=== PATIENT | male | born 1975 | race Caucasian/White ===

== ENCOUNTER → 2018-12-21 09:06 | Outpatient (CLI) | payer OTHER, SELFPAY ==
--- NOTE | 2018-12-21 09:12 | XR_ITS ---
PROCEDURE: XR FOOT WT BEARING LT 3V CLINICAL INDICATION: bilateral foot pain Left foot pain COMPARISON: No exams were available for comparison FINDINGS: No fracture or dislocation. No lytic or blastic change. There is normal mineralization. There are mild osteoarthritic changes at the 1st MTP joint and at the talonavicular joint. Minimal calcification noted at the plantar fascia posteriorly. Coarse calcifications also present at the Achilles tendon region. Other findings:None. IMPRESSION: Degenerative changes. Possible chronic plantar fasciitis. Dictated by: Salbador Spivey MD 12/21/2018 10:06 Signed by: <Electronically signed by Salbador Spivey MD in [place]> 12/21/2018 10:06
--- NOTE | 2018-12-21 09:12 | XR_ITS ---
PROCEDURE: XR ANKLE WT BEARING LT MIN 3V CLINICAL INDICATION: bilateral foot pain Ankle pain COMPARISON: No exams were available for comparison FINDINGS: No fracture, dislocation, lytic change, or blastic change evident. Mild degenerative change. Coarse calcifications are present in the Achilles tendon region IMPRESSION: Mild degenerative changes, no acute finding Dictated by: Salbador Spivey MD 12/21/2018 10:04 Signed by: <Electronically signed by Salbador Spivey MD in [place]> 12/21/2018 10:04
--- NOTE | 2018-12-21 09:12 | XR_ITS ---
PROCEDURE: XR ANKLE WT BEARING RT MIN 3V CLINICAL INDICATION: bilateral foot pain Ankle pain COMPARISON: No exams were available for comparison FINDINGS: No fracture or dislocation. No lytic or blastic change. There is a well-circumscribed calcific density at the tip of the medial malleolus consistent with an old avulsion fracture versus ununited ossification center. There is some minimal cortical regularity involving the medial aspect of the talus. Nonspecific calcifications are present in the Achilles tendon. IMPRESSION: Degenerative changes, no acute finding Dictated by: Salbador Spivey MD 12/21/2018 10:01 Signed by: <Electronically signed by Salbador Spivey MD in [place]> 12/21/2018 10:01
--- NOTE | 2018-12-21 09:12 | XR_ITS ---
PROCEDURE: XR FOOT WT BEARING RT 3V CLINICAL INDICATION: bilateral foot pain Foot pain COMPARISON: No exams were available for comparison FINDINGS: No fracture or dislocation. No lytic or blastic change. There is normal mineralization. Moderate osteoarthritic changes are present at the 1st metatarsophalangeal joint with bony hypertrophic change. Mild degenerative change talonavicular joint. Other findings:There is some minor calcification of the plantar fascia and the distal aspect of the Achilles tendon. IMPRESSION: Osteoarthritic change. Mild calcification of the plantar fascia which could represent sequela from chronic plantar fasciitis. Nonspecific Achilles tendon calcification. Dictated by: Salbador Spivey MD 12/21/2018 09:52 Signed by: <Electronically signed by Salbador Spivey MD in [place]> 12/21/2018 09:52
== END ==
PROVIDERS: PCP Emergency Medicine; Visit Provider Podiatrist
DX: M79.672 Pain in left foot (principal); M79.671 Pain in right foot
CPT/HCPCS: 73610; 73630

== ENCOUNTER → 2019-01-27 16:28 | Outpatient (CLI) | payer OTHER, SELFPAY ==
[2019-01-27 17:06] LABS: Basophils % 0.4 % (0.1-2.0); Eosinophils # 0.1 K/mm3 (0.0-0.4); Eosinophils % 1.5 % (0.1-12.0); Hemoglobin 15.2 g/dL (14.1-18.0); Lymphocytes # 2.2 K/mm3 (0.7-4.5); Lymphocytes % 23.9 % (10-50); Mean Corpuscular HGB Conc 31.7 g/dL (31.8-35.4); Mean Corpuscular Hemoglobin 29.5 pg (27.0-31.2); Mean Corpuscular Volume 93.1 fl (80-94); Mean Platelet Volume 7.5 fl (7.4-10.4); Monocytes # 0.6 K/mm3 (0.1-1.0); Monocytes % 6.7 % (1.7-9.3); Neutrophils # 6.3 K/mm3 (1.8-7.8); Neutrophils % 67.5 % (37.0-80.0); Platelet Count 279 K/mm3 (142-424); Red Blood Count 5.16 M/mm3 (4.60-6.20); White Blood Count 9.3 K/mm3 (4.8-10.8)
[2019-01-27 17:32] LABS: Erythrocyte Sedimentation Rate 6 mm/hr (0-15)
[2019-01-27 18:36] LABS: Alanine Aminotransferase 47 U/L (12-78); Albumin Level 4.4 gm/dL (3.4-5.0); Albumin/Globulin Ratio 1.6 (1.1-1.8); Alkaline Phosphatase 49 U/L (46-116); Anion Gap 11.1 mEq/L (5-15); Aspartate Amino Transferase 22 U/L (15-37); Bilirubin,Total 0.6 mg/dL (0.2-1.0); Blood Urea Nitrogen 20 mg/dL (7-18); Calcium 9.4 mg/dL (8.5-10.1); Carbon Dioxide 33 mmol/L (21.0-32.0); Chloride 99 mmol/L (98-107); Estimated Glomerular Filt Rate 73 ml/min (>60); GFR (African American) 88 ML/MIN (>60); Globulin 2.8 gm/dl (1.3-3.2); Glucose 103 mg/dL (74-106); Potassium 4.1 mmoL/L (3.5-5.1); Sodium 139 mmol/L (136-145); Total Protein,Serum 7.2 gm/dL (6.4-8.2); Uric Acid 7.1 mg/dL (2.6-7.2)
[2019-01-27 18:39] LABS: C-Reactive Protein < 0.2 mg/dL (0.0-0.9)
== END ==
PROVIDERS: Visit Provider Podiatrist
DX: M10.9 Gout, unspecified (principal)
CPT/HCPCS: 36415; 80053; 84550; 85025; 85651; 86140

== ENCOUNTER → 2019-03-16 08:39 | Outpatient (CLI) | payer OTHER, SELFPAY ==
--- NOTE | 2019-03-16 08:46 | MR_ITS ---
PROCEDURE: MR FOOT RT WO/W CON CLINICAL INDICATION: great toe pain Great toe pain and swelling with limited range of motion COMPARISON: XR FOOT WT BEARING RT 3V from 12/21/2018 TECHNIQUE: Routine multiplanar multi echo sequences are performed without and with gadolinium enhancement. FINDINGS: No obvious fracture or dislocation. No ligamentous or tendinous abnormalities identified. There are osteoarthritic changes at the 1st MTP joint with some subarticular cystic changes at the distal aspect of the 1st metatarsal in the proximal aspect of the proximal phalanx. No convincing evidence of osteomyelitis. There is some mild enhancement of the periarticular soft tissues at the 1st MTP joint and may be related overlying inflammation/pannus. There is some minimal enhancement of the proximal and dorsal aspect of the proximal phalanx of the great toe. This is well-circumscribed and may only represent some local inflammation. Cannot completely exclude the possibility of underlying infection. IMPRESSION: Osteoarthritic change of the 1st MTP joint with subchondral cystic changes with some mild enhancement of the surrounding soft tissues which could be related to inflammation from the osteoarthritic change. There is also some minimal enhancement of the proximal and dorsal aspect of the proximal phalanx of the great toe in an area of a subchondral cyst. These findings may only be related to inflammation from the osteoarthritis. Cannot completely exclude the possibility of underlying infection of the soft tissues or the bone at this region. Please correlate with clinical parameters. Three-phase bone scan may be of further value if clinical findings are indeterminate Dictated by: Salbador Spivey MD 03/16/2019 14:02 Electronically signed by Salbador Spivey MD in [place] 03/18/2019 07:44
== END ==
PROVIDERS: PCP Emergency Medicine; Visit Provider Podiatrist
DX: M10.9 Gout, unspecified (principal); M20.5X1 Other deformities of toe(s) (acquired), right foot; M79.671 Pain in right foot
CPT/HCPCS: 73720; A9576

== ENCOUNTER → 2019-03-31 13:24 | Outpatient (CLI) | payer OTHER, SELFPAY ==
--- NOTE | 2019-03-31 13:36 | XR_ITS ---
PROCEDURE: XR FOOT WT BEARING RT 3V CLINICAL INDICATION: FOOT PAIN, GREAT TOE Foot pain, great toe pain with redness and swelling COMPARISON: FTR3 FOOT-RT-3 VIEWS from 05/12/2012 XR FOOT WT BEARING LT 3V from 12/21/2018 XR FOOT WT BEARING RT 3V from 12/21/2018 FINDINGS: There osteoarthritic changes at the 1st MTP joint with bony hypertrophy. No fracture or dislocation. Mild osteoarthritic change talonavicular joint with small enthesophytes at the Achilles insertion and calcification along the distal aspect of the Achilles tendon and plantar fascia. Other findings:None. IMPRESSION: Mild osteoarthritic change 1st MTP joint and talonavicular joint. Calcification along the Achilles tendon and plantar fascia which may be related to or tendonitis, fasciitis Dictated by: Salbador Spivey MD 03/31/2019 15:50 Electronically signed by Salbador Spivey MD in [place] 03/31/2019 15:50
[2019-03-31 13:48] LABS: Basophils % 0.4 % (0.1-2.0); Eosinophils # 0.2 K/mm3 (0.0-0.4); Eosinophils % 2.2 % (0.1-12.0); Hematocrit 48.3 % (42.0-52.0); Hemoglobin 15.6 g/dL (14.1-18.0); Lymphocytes % 26.5 % (10-50); Mean Corpuscular HGB Conc 32.4 g/dL (31.8-35.4); Mean Corpuscular Hemoglobin 30.5 pg (27.0-31.2); Mean Corpuscular Volume 94.1 fl (80-94); Mean Platelet Volume 11.3 fl (7.4-10.4); Monocytes # 0.5 K/mm3 (0.1-1.0); Monocytes % 6.1 % (1.7-9.3); Neutrophils # 4.8 K/mm3 (1.8-7.8); Neutrophils % 64.8 % (37.0-80.0); Platelet Count 225 K/mm3 (142-424); Red Blood Count 5.13 M/mm3 (4.60-6.20); Red Cell Distribution Width 13.5 % (11.5-17.5); White Blood Count 7.4 K/mm3 (4.8-10.8)
[2019-03-31 17:09] LABS: Erythrocyte Sedimentation Rate 18 mm/hr (0-15)
[2019-03-31 17:17] LABS: Alanine Aminotransferase 54 U/L (12-78); Albumin Level 4.5 gm/dL (3.4-5.0); Albumin/Globulin Ratio 1.7 (1.1-1.8); Alkaline Phosphatase 48 U/L (46-116); Anion Gap 17.2 mEq/L (5-15); Aspartate Amino Transferase 21 U/L (15-37); Bilirubin,Total 0.9 mg/dL (0.2-1.0); Blood Urea Nitrogen 19 mg/dL (7-18); C-Reactive Protein 2.4 mg/dL (0.0-0.9); Calcium 8.7 mg/dL (8.5-10.1); Carbon Dioxide 26 mmol/L (21.0-32.0); Chloride 105 mmol/L (98-107); Creatinine,Serum 1.08 mg/dL (0.70-1.30); Estimated Glomerular Filt Rate 74 ml/min (>60); GFR (African American) 89 ML/MIN (>60); Globulin 2.6 gm/dl (1.3-3.2); Glucose 86 mg/dL (74-106); Potassium 4.2 mmoL/L (3.5-5.1); Sodium 144 mmol/L (136-145); Total Protein,Serum 7.1 gm/dL (6.4-8.2); Uric Acid 5.8 mg/dL (2.6-7.2)
[2019-04-02 10:18] LABS: RA Latex Turbid. <10.0 IU/mL (0.0-13.9)
[2019-04-05 16:44] LABS: Antinuclear Antibodies, IFA Positive (.)
== END ==
PROVIDERS: Visit Provider Podiatrist
DX: M79.671 Pain in right foot (principal)
CPT/HCPCS: 36415; 73630; 80053; 84550; 85025; 85651; 86038; 86140; 86431

== ENCOUNTER → 2019-04-07 08:52 | Outpatient (CLI) | payer OTHER, SELFPAY ==
--- NOTE | 2019-04-07 08:59 | NM_ITS ---
PROCEDURE: NM BONE 3 PHASE CLINICAL INDICATION: right great toe pain COMPARISON: MR FOOT RT WO/W CON from 03/16/2019 XR FOOT WT BEARING RT 3V from 03/31/2019 TECHNIQUE: Dose: 24.6 mCi technetium MDP FINDINGS: Blood flow images show increased blood flow to the right lower extremity and foot as well as focal increased activity involving the 1st metatarsophalangeal junction. Blood pool and delayed images also show focal intense increased activity at the 1st metatarsophalangeal junction on the right with some increased activity at the right interphalangeal joint. Delayed images show focal intense increased activity at the right 1st metatarsophalangeal junction as well as the 1st interphalangeal joint. There is some nonspecific increased activity in the midfoot on the left and at the area of the Achilles insertion on the left. IMPRESSION: Abnormal bone scan with focal intense increased activity at the right 1st metatarsophalangeal joint on all 3 phases. Differential diagnosis includes inflammatory arthritic changes or infection/septic joint. Increased activity at the interphalangeal joint on immediate and delayed images more suggestive of arthritic change. Dictated by: Salbador Spivey MD 04/10/2019 09:05 Electronically signed by Salbador Spivey MD in [place] 04/10/2019 09:05
--- NOTE | 2019-04-07 10:35 | HMH.ITSHM ---
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 []LISINOPRIL CLINDAMYCIN ALLOPURINOL IBUPROFEN ATORVASTATIN
== END ==
PROVIDERS: PCP Emergency Medicine; Visit Provider Podiatrist
DX: M10.9 Gout, unspecified (principal); M20.5X1 Other deformities of toe(s) (acquired), right foot; M79.671 Pain in right foot
CPT/HCPCS: 78315; A9503

== ENCOUNTER → 2019-04-18 15:32 | Outpatient (POV) | payer OTHER, SELFPAY | PROVIDERS: PCP Emergency Medicine; Visit Provider Nurse Practitioner Family | DX: Z00.00 Encounter for general adult medical examination without abnormal findings (principal) ==

== ENCOUNTER → 2019-08-26 11:32 | Outpatient (CLI) | payer OTHER, SELFPAY ==
--- NOTE | 2019-08-26 11:37 | XR_ITS ---
PROCEDURE: XR CERVICAL SPINE 3V CLINICAL INDICATION: neck pain COMPARISON: No exams were available for comparison FINDINGS: There is normal alignment. Degenerative disc disease is present at C4-C5 C5-C6 and C6-C7. There are some endplate spurring at these levels as well. There are mild facet arthritic changes at C4-C5 and C6. No fracture or dislocation. No lytic or blastic change. IMPRESSION: Cervical spondylosis as described above Dictated by: Salbador Spivey MD 08/26/2019 12:17 Electronically signed by Salbador Spivey MD in [place] 08/26/2019 12:17
== END ==
PROVIDERS: PCP Emergency Medicine; Visit Provider Orthopaedic Surgery
DX: M25.511 Pain in right shoulder (principal); M54.2 Cervicalgia
CPT/HCPCS: 72040

== ENCOUNTER → 2019-10-17 11:16 | Outpatient (POV) | payer OTHER, SELFPAY | PROVIDERS: Visit Provider Nurse Practitioner Family | DX: Z00.00 Encounter for general adult medical examination without abnormal findings (principal) ==

== ENCOUNTER → 2019-11-07 08:46 | Outpatient (CLI) | payer BC, SELFPAY ==
--- NOTE | 2019-11-07 08:47 | FL_ITS ---
PROCEDURE: FL BARIUM SWALLOW CLINICAL INDICATION: dysphag Dysphagia COMPARISON: US THYROID from 11/07/2019 TECHNIQUE: In the upright position the patient was observed to swallow barium in both the AP and lateral view. The cervical esophagus was examined under fluoroscopy with images obtained. The patient was then placed prone in the right anterior oblique position and was observed to swallow barium with Valsalva technique . FLUOROSCOPY TIME: 39 seconds FINDINGS: There was no evidence of aspiration. There was normal peristalsis. No filling defects or mucosal abnormalities. No masses or strictures. This optic is a slightly deviated toward the left at the level of the thoracic inlet. No annular constricting lesions. No mucosal abnormalities. No hernias. IMPRESSION: The upper thoracic esophagus is slightly deviated toward the left etiology indeterminate otherwise negative. Ultrasound of the same day did not reveal in the thyroid enlargement or masses on the right. CT with contrast of the lower neck/upper chest may provide further evaluation. Dictated by: Salbador Spivey MD 11/07/2019 10:08 Electronically signed by Salbador Spivey MD in [place] 11/07/2019 10:08
--- NOTE | 2019-11-07 08:47 | US_ITS ---
PROCEDURE: US THYROID CLINICAL INDICATION: enlarged right lobe Trouble swallowing, neck pressure COMPARISON: No exams were available for comparison FINDINGS: Right lobe: 3.8 x 1.4 x 1.7 cm. Homogeneous echogenicity. No mass Left lobe: 3.4 x 1.3 x 1.9 cm. Homogeneous echogenicity without evidence of mass Isthmus: Slightly prominent at 5 mm. No nodules Additional findings: IMPRESSION: Slightly prominent isthmus of the thyroid gland otherwise negative thyroid ultrasound. No mass/nodule apparent. Dictated by: Salbador Spivey MD 11/07/2019 10:11 Electronically signed by Salbador Spivey MD in [place] 11/07/2019 10:11
== END ==
PROVIDERS: PCP Emergency Medicine; Visit Provider Otolaryngology
DX: R13.10 Dysphagia, unspecified (principal); E01.0 Iodine-deficiency related diffuse (endemic) goiter
CPT/HCPCS: 74220; 76536

== ENCOUNTER → 2019-11-25 13:31 | Outpatient (CLI) | payer BC, SELFPAY ==
--- NOTE | 2019-11-25 13:31 | CT_ITS ---
PROCEDURE: CT SOFT TISSUE NECK WO/W CON CLINICAL HISTORY: DEVIATED ESOPHAGUS Feels like something is stuck in throat with coughing and gagging COMPARISON: DX,RF FL BARIUM SWALLOW from 11/07/2019 TECHNIQUE: Oral Contrast: None IV Contrast: 75 mL Optiray 350 Axial images obtained with sagittal and coronal reformats. All CT scans at the facility use one or more dose reduction, viz: automated exposure control, ma/kV adjustment per patient size (including targeted exams where dose is matched to indication, i.e. head), or iterative reconstruction technique. FINDINGS: The exam is performed without and with contrast. The nasopharynx, oropharynx, and hypopharynx have an unremarkable appearance. Unremarkable appearing epiglottis. The thyroid gland has an unremarkable appearance. There is no paratracheal mass evident. No impingement upon the trachea. No para esophageal mass is apparent. No anatomic vascular variants. The upper mediastinum has an unremarkable appearance. There are mild degenerative changes in the cervical spine IMPRESSION: Essentially negative CT of the neck. No paraesophageal or paratracheal masses or vascular anatomic variant. The trachea and esophagus appear midline in the neck. The esophageal deviation on the barium swallow is not duplicated on this exam Dictated b Salbador Spivey MD 11/26/2019 10:43 Salbador Spivey MD in [place] 11/26/2019 10:43
== END ==
PROVIDERS: PCP Emergency Medicine; Visit Provider Otolaryngology
DX: Q39.8 Other congenital malformations of esophagus (principal); K13.79 Other lesions of oral mucosa
CPT/HCPCS: 70492; Q9967

== ENCOUNTER → 2020-04-27 14:08 | Outpatient (CLI) | payer BC, SELFPAY ==
--- NOTE | 2020-04-27 14:12 | XR_ITS ---
PROCEDURE: XR ELBOW LT MIN 3V CLINICAL INDICATION: Elbow pain COMPARISON: No exams were available for comparison FINDINGS: No fracture or dislocation. No lytic or blastic change. There is normal mineralization. The joint spaces are well preserved. There is a small spur measuring 2-3 mm along the medial aspect of the capitellum. No evidence of displaced pad. Other findings:None. IMPRESSION: Small spur along the medial aspect of the capitellum otherwise negative left elbow Dictated by: Salbador Spivey MD 04/27/2020 15:52 Salbador Spivey MD in [place] 04/27/2020 15:52
== END ==
PROVIDERS: PCP Emergency Medicine; Visit Provider Orthopaedic Surgery
DX: M25.522 Pain in left elbow (principal)
CPT/HCPCS: 73080

== ENCOUNTER 2020-06-10 14:59 | Emergency (ER) | payer BC, OTHER, SELFPAY ==
[2020-06-10 15:01] VITALS: BP 131/83; PULSE 82; RESP 19; TEMP 36.3; O2SAT 98; BMI 33.9
--- NOTE | 2020-06-10 15:10 | CT_ITS ---
PROCEDURE: CT HEAD/BRAIN WO CON CLINICAL INDICATION: dizziness/headache COMPARISON: No exams were available for comparison TECHNIQUE: Axial images obtained. All CT scans at the facility use one or more dose reduction, viz: automated exposure control, ma/kV adjustment per patient size (including targeted exams where dose is matched to indication, i.e. head), or iterative reconstruction technique. FINDINGS: No midline shift, mass effect, intracranial hemorrhage, hydrocephalus, or extra-axial fluid collection is evident. The basilar cisterns and ventricular system are normal. There is no significant cerebellar or cortical atrophy. There are mild periventricular hypodensities suggesting mild chronic ischemic white matter changes. The calvarium has an unremarkable appearance. The internal auditory canals appear normal bilaterally. No mastoid effusion. No sinus air-fluid level. IMPRESSION: No acute intracranial finding, mild chronic ischemic periventricular white matter changes noted Dictated by: Dr. Corky Dugan MD 06/10/2020 19:19 Dr. Corky Dugan MD in [place] 06/10/2020 19:19
[2020-06-10 15:29] LABS: Basophils # 0.1 K/mm3 (0-0.2); Basophils % 0.7 % (0.1-2.0); Eosinophils # 0.1 K/mm3 (0.0-0.4); Eosinophils % 1.6 % (0.1-12.0); Hematocrit 50.4 % (42.0-52.0); Hemoglobin 16.7 g/dL (14.1-18.0); Lymphocytes # 2.1 K/mm3 (0.7-4.5); Lymphocytes % 26.3 % (10-50); Mean Corpuscular HGB Conc 33.1 g/dL (31.8-35.4); Mean Corpuscular Hemoglobin 29.5 pg (27.0-31.2); Mean Platelet Volume 7.4 fl (7.4-10.4); Monocytes # 0.5 K/mm3 (0.1-1.0); Monocytes % 6.1 % (1.7-9.3); Neutrophils # 5.2 K/mm3 (1.8-7.8); Neutrophils % 65.3 % (37.0-80.0); Platelet Count 207 K/mm3 (142-424); Red Blood Count 5.66 M/mm3 (4.60-6.20); Red Cell Distribution Width 13.3 % (11.5-17.5); White Blood Count 7.9 K/mm3 (4.8-10.8)
[2020-06-10 15:31] VITALS: BP 137/81; PULSE 79; RESP 20; O2SAT 100
--- NOTE | 2020-06-10 15:31 | HMH.EDGENADL ---
ED Disposition Clinical Impression: Frontal headache Disposition: Home, Self-Care Condition on Discharge: Good Instructions: DI for Headache Additional Instructions: Additional instructions for HEADACHE: See your physician as soon as possible for further evaluation. Return immediately if worsening headache, vomiting, problems with vision or speech, fever, numbness or weakness of the extremities, neck pain or stiffness. Prescriptions: Butalb/Acetaminophen/Caffeine [Fioricet 50-300-40 mg Capsule] 1 each PO Q6HP PRN #10 cap PRN Reason: Headache Transmission Status: Received by [facility] Referrals: Navin Garcia MD [Primary Care Provider] - - Critical Care Critical Care Time: No Attestation: On 06/10/20, the high probability of a clinically significant, sudden or life threatening deterioration of the following system(s) required my full and direct attention, intervention and personal management. The time I documented below is in addition to time spent performing reported procedures but includes the following listed in this critical care notation. Medical Decision Making - Boaz Inquiry Pt receiving controlled substance: No Vital Signs: 06/10/20 15:01 06/10/20 15:31 06/10/20 16:01 Temperature 97.4 F L Temperature Source Oral Pulse Rate [Left Radial] 82 79 79 Respiratory Rate 19 20 18 Blood Pressure [Right Arm] 131/83 137/81 123/80 Blood Pressure Mean [Right Arm] 99 99 94 Blood Pressure Source [Right Arm] Automatic Cuff Manual Cuff/ Palpation Blood Pressure Position [Right Arm] Sitting Sitting 02 Sat by Pulse Oximetry 98 100 98 Oxygen Delivery Method Room Air Room Air Room Air 06/10/20 16:41 Temperature Temperature Source Pulse Rate [Left Radial] 68 Respiratory Rate Blood Pressure [Right Arm] 124/75 Blood Pressure Mean [Right Arm] 91 Blood Pressure Source [Right Arm] Automatic Cuff Blood Pressure Position [Right Arm] Sitting 02 Sat by Pulse Oximetry 97 Oxygen Delivery Method Room Air - Lab Data Lab Results 06/10/20 15:15: WBC 7.9, RBC 5.66, Hgb 16.7, Hct 50.4, MCV 89.0, MCH 29.5, MCHC 33.1, RDW 13.3, Plt Count 207, MPV 7.4, Neut % (Auto) 65.3, Lymph % (Auto) 26.3, [place] % (Auto) 6.1, Eos % (Auto) 1.6, Baso % (Auto) 0.7, Neut # (Auto) 5.2, Lymph # (Auto) 2.1, [place] # (Auto) 0.5, Eos # (Auto) 0.1, Baso # (Auto) 0.1 06/10/20 15:15: Sodium 138, Potassium 4.0, Chloride 101, Carbon Dioxide 32 H, Anion Gap 9.0, BUN 17, Creatinine 1.10, Estimated Creat Clear 135, Estimated GFR 72, Est GFR ( Amer) 87, Glucose 116 H, Calcium 9.9, Total Bilirubin 0.7, AST 37, ALT 52, Alkaline Phosphatase 52, Total Protein 7.7, Albumin 4.7, Globulin 3.0, Albumin/Globulin Ratio 1.6 06/10/20 15:15: ESR 3 06/10/20 15:15: C-Reactive Protein 1.2 Result diagrams: 06/10/20 15:15 06/10/20 15:15 Orders (Tests/Meds): ED MEDICATIONS Discontinued Medications Generic Name Dose Route Start Last Admin Trade Name Freq PRN Reason Stop Dose Admin Ketorolac Tromethamine 30 mg 06/10/20 15:55 06/10/20 15:59 Ketorolac 30mg/Ml Vial IV 06/10/20 15:56 30 mg ONCE ONE Administration ORDERS Category Date Time Status CT head/brain wo con Stat Cat Scan 06/10/20 15:10 Taken - CT Data CT Scan: Head Time Received: 16:10 ([facility] fax) ED CT Reviewed: Yes: I have viewed the radiologist's interpretation Findings Narrative: Mild to moderate low-attenuation changes periventricular white matter and centrum semiovale, possible early white matter ischemic disease, cannot rule out white matter disease otherwise (e.g. MS or vasculitis) consider short-term follow-up CT or MRI as clinically indicated for further evaluation Visualized paranasal sinuses clear. 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 Medical Decision Narrative: Discussed findings. Advised of questionable white matter f
[2020-06-10 15:32] LABS: Alanine Aminotransferase 52 U/L (12-78); Albumin Level 4.7 g/dl (3.5-5.0); Albumin/Globulin Ratio 1.6 (1.1-1.8); Alkaline Phosphatase 52 U/L (38-126); Aspartate Amino Transferase 37 U/L (17-59); Bilirubin,Total 0.7 mg/dl (0.2-1.3); Blood Urea Nitrogen 17 mg/dl (9-20); Calcium 9.9 mg/dl (8.4-10.2); Carbon Dioxide 32 mmol/L (22.0-30.0); Chloride 101 mmol/L (98-107); Creatinine Clearance Estimated 135 mL/min (50-200); Estimated Glomerular Filt Rate 72 ml/min (>60); GFR (African American) 87 ML/MIN (>60); Glucose 116 mg/dl (74-100); Sodium 138 mmol/L (136-145); Total Protein,Serum 7.7 g/dl (6.3-8.2)
[2020-06-10 16:01] VITALS: BP 123/80; PULSE 79; RESP 18; O2SAT 98
[2020-06-10 16:29] LABS: C-Reactive Protein 1.2 mg/L (0-4)
[2020-06-10 16:37] LABS: Erythrocyte Sedimentation Rate 3 mm/hr (0-15)
--- NOTE | 2020-06-10 16:37 | PC.NURSE ---
MD at bedside discussing results and plan of care.
[2020-06-10 16:41] VITALS: BP 124/75; PULSE 68; O2SAT 97
[2020-06-10 16:44] VITALS: BP 127/76; PULSE 76; RESP 18; TEMP 36.8; O2SAT 98
== END 2020-06-10 16:47 | disposition home or self-care (01) ==
PROVIDERS: Emergency Provider Emergency Medicine; PCP Emergency Medicine
DX: R51.9 Headache, unspecified (principal); E78.5 Hyperlipidemia, unspecified; I10 Essential (primary) hypertension; Z79.899 Other long term (current) drug therapy
CPT/HCPCS: 70450; 80053; 85025; 85651; 86140; 96374; 99283

== ENCOUNTER → 2020-06-21 07:34 | Outpatient (CLI) | payer BC, OTHER, SELFPAY ==
--- NOTE | 2020-06-21 07:35 | MR_ITS ---
PROCEDURE: MR HEAD/BRAIN WO CON CLINICAL INDICATION: unrelenting headache Frontal headaches x2.5wks. Headaches started x1wk after COVID vaccine. Prior CT 06-10-20 COMPARISON: No exams were available for comparison TECHNIQUE: Routine multiplanar multi echo sequences are performed without gadolinium enhancement. FINDINGS: No evidence of acute infarction. No midline shift or mass effect. The cerebellopontine angles, cerebellum, and brainstem have an unremarkable appearance. Periventricular and subcortical T2 white matter hyperintensities are present most prominent in the parietal occipital junction on both sides confluent in appearance. These areas do not demonstrate restricted diffusion. There are 2 small cystic areas in the left periventricular region along the anterior horn of the left lateral ventricle. These measure approximately 5 mm each. The corpus callosum, pituitary, and craniocervical junction have an unremarkable appearance. No mastoid effusion or sinus air-fluid level. IMPRESSION: 1. There are prominent periventricular and subcortical T2 white matter hyperintensities most prominent at the parieto-occipital junction posterior to the lateral ventricles. Differential diagnosis would include ischemic gliotic change from microvascular disease, multiple sclerosis, or migraine headache. Please correlate with clinical parameters. 2. Two small cystic regions in the periventricular region in the left frontal area nonspecific and could be due to in size cystic encephalomalacia change Dictated by: Salbador Spivey MD 06/22/2020 12:22 Salbador Spivey MD in [place] 06/22/2020 12:22
== END ==
PROVIDERS: PCP Physician Assistant; Visit Provider Physician Assistant
DX: R51.9 Headache, unspecified (principal)
CPT/HCPCS: 70551

== ENCOUNTER 2020-11-29 10:32 | Emergency (ER) | payer OTHER, SELFPAY ==
[2020-11-29 10:33] VITALS: BP 147/90; PULSE 71; RESP 19; TEMP 36.9; O2SAT 98; BMI 32.3
[2020-11-29 11:12] LABS: Adenovirus,PCR Not Detected (NotDetected); Bordetella Pertussis Not Detected (NotDetected); Chlamydophila Pneumoniae, PCR Not Detected (NotDetected); Coronavirus 19, PCR Not Detected (NotDetected); Coronavirus 229E Not Detected (NotDetected); Coronavirus NL63 Not Detected (NotDetected); Coronavirus OC43 Not Detected (NotDetected); Coronovirus HKU1,PCR Not Detected (NotDetected); Human Metapneumovirus Not Detected (NotDetected); Influenza A, PCR Not Detected (NotDetected); Influenza AH1, 2009 Not Detected (NotDetected); Influenza AH1, PCR Not Detected (NotDetected); Influenza AH3,PCR Not Detected (NotDetected); Influenza B, PCR Not Detected (NotDetected); Mycoplasma Pneumoniae, PCR Not Detected (NotDetected); Parainfluenza 1, PCR Not Detected (NotDetected); Parainfluenza 2, PCR Not Detected (NotDetected); Parainfluenza 4, PCR Not Detected (NotDetected); Respiratory Syncytial Virus Not Detected (NotDetected); Rhinovirus/Enterovirus Not Detected (NotDetected)
--- NOTE | 2020-11-29 11:21 | HMH.EDUTC ---
[facility] [place] Disposition Clinical Impression: Sinusitis Qualifiers: Sinusitis location: unspecified location Chronicity: unspecified Qualified Code(s): J32.9 - Chronic sinusitis, unspecified Disposition: Home, Self-Care Condition on Discharge: Good Instructions: Sinusitis, DI for Sinusitis, DI for COVID-19 (Suspected or Confirmed ), Preventing the Spread of Coronavirus Discharge Instructions Additional Instructions: *Monitor Temp, Over the counter Motrin or Tylenol as directed/as needed Tylenol every 4 hours and Motrin every 6 hours (as long as your family doctor has told you that you can take it) for fever or pain. and straight to ER if unable to lower temp less than 101.0 after medication given *Warm salt water gargles may help to soothe the throat *Throat Lozenges *Warm fluids like tea with honey may help to soothe the throat *Sleep elevated *Humidifier/Vaporizer Follow up IMMEDIATELY for new or worsening symptoms or no Noticeable improvement over the next 48-72 hours. 911 for difficulty breathing or swallowing You were tested for today for COVID19 your test result should be back in the next 24-48 hours, you may call to the [facility] to see if your test results are back in the next 48 hours [phone] [facility] hours are 9am-9pm You was given a handout with instructions for Self Quarantine and Self isolation for while you wait on test results and what to do if they are positive If you are positive the Health Dept will be contacting you also Prescriptions: guaiFENesin [Mucinex 600mg tablet] 1 - 2 tab PO Q12HP PRN #20 tab.er.[id number] PRN Reason: Congestion Transmission Status: Pending to [facility] methylPREDNISolone [Medrol 4mg tab] 4 mg PO DIRECTED #21 tab Transmission Status: Pending to [facility] Azithromycin [Z-Gianfranco 250mg Tab*] 250 mg PO UD DOSE PK #6 tab Transmission Status: Pending to [facility] Referrals: Navin Garcia MD [Primary Care Provider] - As needed Forms: Work/School Release Time of Disposition: 11:35 Medical Decision Making - Boaz Inquiry Pt receiving controlled substance: No Boaz was queried for this patient: No Vital Signs: 11/29/20 10:33 Temperature 98.5 F Temperature Source Oral Pulse Rate [Left Radial] 71 Respiratory Rate 19 Blood Pressure [Right Arm] 147/90 H Blood Pressure Mean [Right Arm] 109 Blood Pressure Source [Right Arm] Automatic Cuff Blood Pressure Position [Right Arm] Sitting 02 Sat by Pulse Oximetry 98 Oxygen Delivery Method Room Air Orders (Tests/Meds): ORDERS Category Date Time Status Full Resp Panel w/COVID ([facility]) Routine Lab 11/29/20 10:58 Received [facility] [place] HPI - General Stated complaint: sinuses, coughing, weakness Time Seen by Provider: 11/29/20 11:21 Mode of Arrival: Ambulatory Source of Information: Patient Limitations: No Limitations Description of Symptoms (Recalled from Triage Doc. by RN): c/o cough and stopped up for 2 days HEENT Symptoms (Recalled from RN notes): Yes Resp Symptoms (Recalled from RN notes): No Skin Symptoms (Recalled from RN notes): No MS Symptoms (Recalled from RN notes): No Functional Status (Recalled from RN notes): na - History of Present Illness Provider Complaint: Patient states that he has been having sinus congestion and pressure along with cough, body aches and chills States that symptoms started almost a week ago and had continued to get worse over the last couple of days State that today he was coughing and came in to get tested for COVID - Related Data Home Medications Medication Instructions Recorded Confirmed Omeprazole [Omeprazole 20mg Tab] 20 mg PO DAILY 06/24/19 07/19/20 Previous Rx's Medication Instructions Recorded losartan 25 mg tablet 25 mg PO DAILY #90 tab 06/22/20 methylprednisolone 4 mg tablets in See Rx Instructions PO PER PKG DIR 11/26/20 a dose pack #21 tab Azithromycin [Z-Gianfranco 250mg Tab*] 250 mg PO UD DOSE PK #6 tab 11/29/20 guaiFENesin [Mucinex 600mg tablet]
[2020-11-29 11:43] VITALS: BP 147/90; PULSE 71; RESP 19; TEMP 36.9; O2SAT 98
[2020-11-29 13:30] LABS: Parainfluenza 3, PCR Detected (NotDetected)
== END 2020-11-29 11:44 | disposition home or self-care (01) ==
PROVIDERS: Emergency Provider Nurse Practitioner; PCP Emergency Medicine
DX: J32.9 Chronic sinusitis, unspecified (principal); I10 Essential (primary) hypertension; K21.9 Gastro-esophageal reflux disease without esophagitis; E78.5 Hyperlipidemia, unspecified
CPT/HCPCS: 87581; 87633; 87798; 99202; G0463

== ENCOUNTER 2022-03-26 07:19 | Emergency (ER) | payer OTHER, SELFPAY ==
[2022-03-26 07:20] VITALS: BP 137/89; PULSE 80; RESP 18; TEMP 36.6; O2SAT 99; BMI 29.1
[2022-03-26 07:44] VITALS: BMI 29.1
[2022-03-26 07:49] LABS: Coronavirus 19, PCR Not Detected (NotDetected); Influenza A, PCR Not Detected (NotDetected); Influenza B, PCR Not Detected (NotDetected)
[2022-03-26 07:56] LABS: Basophils # 0.1 K/mm3 (0-0.2); Basophils % 1.2 % (0.1-2.0); Chloride 104 mmol/L (98-107); Eosinophils # 0.1 K/mm3 (0.0-0.4); Eosinophils % 2.2 % (0.1-12.0); Hematocrit 47.8 % (42.0-52.0); Hemoglobin 16.2 g/dL (14.1-18.0); Lymphocytes # 1.5 K/mm3 (0.7-4.5); Lymphocytes % 24.9 % (10-50); Mean Corpuscular HGB Conc 33.8 g/dL (31.8-35.4); Mean Corpuscular Hemoglobin 29.8 pg (27.0-31.2); Mean Corpuscular Volume 88.1 fl (80-94); Mean Platelet Volume 8.4 fl (7.4-10.4); Monocytes # 0.6 K/mm3 (0.1-1.0); Monocytes % 9.3 % (1.7-9.3); Neutrophils # 3.9 K/mm3 (1.8-7.8); Neutrophils % 62.5 % (37.0-80.0); Platelet Count 245 K/mm3 (142-424); Potassium 4.1 mmoL/L (3.5-5.1); Red Blood Count 5.42 M/mm3 (4.60-6.20); Red Cell Distribution Width 13.5 % (11.5-17.5); Sodium 139 mmol/L (136-145); White Blood Count 6.2 K/mm3 (4.8-10.8)
[2022-03-26 07:58] LABS: Lipase 215 U/L (23-300)
[2022-03-26 07:59] LABS: Alanine Aminotransferase 51 U/L (12-78); Albumin Level 4.2 g/dl (3.5-5.0); Albumin/Globulin Ratio 1.9 (1.1-1.8); Alkaline Phosphatase 46 U/L (38-126); Amylase 73 U/L (30-110); Anion Gap 11.1 mEq/L (5-15); Aspartate Amino Transferase 47 U/L (17-59); Bilirubin,Total 1.2 mg/dl (0.2-1.3); Blood Urea Nitrogen 16 mg/dl (9-20); Calcium 9.1 mg/dl (8.4-10.2); Carbon Dioxide 28 mmol/L (22.0-30.0); Creatinine Clearance Estimated 125 mL/min (50-200); Estimated Glomerular Filt Rate 80 ml/min (>60); GFR (African American) 97 ML/MIN (>60); Globulin 2.2 g/dL (1.3-3.2); Glucose 97 mg/dl (74-100); Total Protein,Serum 6.4 g/dl (6.3-8.2)
[2022-03-26 08:00] VITALS: BP 127/78; PULSE 62
--- NOTE | 2022-03-26 08:07 | PC.NURSE ---
pt up to the bathroom
[2022-03-26 08:23] LABS: Microscopic, Urine URINE MICROSCOPIC (MICROSCOPIC)
[2022-03-26 08:24] LABS: Appearance,Urine CLEAR (Clear); Bilirubin,Urine Negative (Negative); Blood, Urine Negative (Negative); Color,Urine YELLOW (Yellow); Glucose,Urine (UA) Negative (Negative); Ketones,Urine Negative (Negative); Leukocyte Esterase,Urine Negative (Negative); Nitrate,Urine Negative (Negative); Protein,Urine Negative (Negative)
--- NOTE | 2022-03-26 08:35 | HMH.EDNVD ---
Discharge Plan Disposition Patient Disposition: Home, Self-Care Condition: Good Prescriptions Prescriptions: No Action atorvastatin 10 mg tablet 10 mg PO DAILY ondansetron HCl 4 mg tablet 4 mg PO TID PRN (Reason: nausea and vomiting) Qty: 45 1RF losartan 25 mg tablet See Rx Instructions .ROUTE .COMPLEX Qty: 90 1RF Dose Instruction: TAKE ONE TABLET BY MOUTH EVERY DAY Rx Instructions: TAKE ONE TABLET BY MOUTH EVERY DAY omeprazole 40 mg capsule,delayed release(DR/EC) See Rx Instructions .ROUTE .COMPLEX Qty: 30 2RF Dose Instruction: TAKE ONE CAPSULE BY MOUTH EVERY DAY DIRECTED Rx Instructions: TAKE ONE CAPSULE BY MOUTH EVERY DAY DIRECTED allopurinol 100 mg tablet 100 mg PO DAILY 30 Days Qty: 90 3RF Referrals Follow up/Referrals: Navin Garcia MD [Primary Care Provider] - See instructions Activity Restrictions/Add. Instructions Additional Instructions/Restrictions: Please follow up with your primary care physician in 1-2 days for further management. You will need to obtain a stool study with your primary care team. Please return if you have any abdominal pain or worsening symptoms. Clinical Impressions Clinical Impression: Gastroenteritis Stand Alone Forms Stand Alone Forms: Work/School Release Instructions Patient Instructions: Viral Gastroenteritis, Gastroenteritis Diet, DI for Colitis Print Language Print Language: Turkmen Discharge ED Provider: Lizbeth Kay Nausea/Vomiting/Diarrhea HPI General Chief complaint: Nausea/Vomiting/Diarrhea Stated complaint: Nausea, vomitting, diarreah Time Seen by Provider: 03/26/22 08:00 Mode of Arrival: Ambulatory Source of Information: Patient Limitations: No Limitations Description of Symptoms (Recalled from ER Triage Doc. by RN): c/o n/v/d for 2 weeks, pt states that he stays nauseated all day, and he goes to the bathroom with diarrhea day and night. History of Present Illness HPI Narrative: Mr. Alfonso is a 47 yo male w/ no significant PMH presenting to the ED for N/V/D for 2 weeks. Patient denies any abdominal pain. No bloody stools. No weight loss. No chest pain, dyspnea or diaphoresis. No bloody emesis. No fevers, cough or other infectious symptoms. MD complaint: nausea, vomiting and diarrhea Onset (ago): week(s) Description of Vomiting: watery Description of Diarrhea: water Associated Abdominal Pain: No Relieving factors: none Exacerbating factors: none Associated symptoms: denies other symptoms Related Data Home Medications Medication Instructions Recorded Confirmed atorvastatin 10 mg tablet 10 mg PO DAILY 03/27/22 03/27/22 Previous Rx's Medication Instructions Recorded losartan 25 mg tablet See Rx Instructions .Route 01/08/22 .COMPLEX #90 tabs omeprazole 40 mg capsule,delayed See Rx Instructions .Route 02/10/22 release .COMPLEX #30 caps allopurinol 100 mg tablet 100 mg PO DAILY 30 days #90 tabs 03/21/22 ondansetron HCl 4 mg tablet 4 mg PO TID PRN nausea and 03/27/22 vomiting #45 tabs Allergies Allergy/AdvReac Type Severity Reaction Status Date / Time morphine [MORPHINE] Allergy Mild DIZZINESS Verified 03/27/22 14:04 AND VOMITING lisinopril AdvReac Mild cough Verified 03/27/22 14:04 meloxicam [From Mobic] AdvReac Dry Eye, Verified 03/27/22 14:04 Headaches, Blurred Vision PFSH PFS Disclaimer: The information contained in this section may have been updated after the patient was seen, as this information can be updated by other users. Social History Smoking Status: Never smoker second hand exposure: No alcohol intake: current substance use type: denies use current occupational status: employed Travel in the last 8 weeks: None household members: spouse housing: house current occupation: [employer] current occupational exposures/hazards: No caffeine: Yes ROS Obt
[2022-03-26 08:43] LABS: Bacteria,Urine Trace /lpf; Squamous Epithelial Cell,Urine Occasional #/hpf (0-5)
--- NOTE | 2022-03-26 09:10 | PC.NURSE ---
pt requesting CT, states she does not see an indication for one at this time. will go talk to the pt
[2022-03-26 09:16] VITALS: BP 127/78; PULSE 62; RESP 18; TEMP 36.6; O2SAT 98
== END 2022-03-26 09:17 | disposition home or self-care (01) ==
PROVIDERS: Emergency Provider Student in an Organized Health Care Education/Training Program; PCP Emergency Medicine
DX: K52.9 Noninfective gastroenteritis and colitis, unspecified (principal); Z88.5 Allergy status to narcotic agent; Z88.8 Allergy status to other drugs, medicaments and biological substances
CPT/HCPCS: 80053; 81001; 82150; 83690; 85025; 96365; 96375; 99284; C9803; J2405; U0003; U0005

== ENCOUNTER 2022-06-01 10:19 | Outpatient (CLI) | payer SELFPAY ==
[2022-06-01 19:49] VITALS: BMI 32.3
== END 2022-06-01 11:41 | disposition home or self-care (01) ==
LOC: UTC.OUT 10:27
PROVIDERS: PCP Emergency Medicine; Visit Provider Nurse Practitioner Family
DX: Z02.4 Encounter for examination for driving license (principal)

== ENCOUNTER → 2022-09-05 09:10 | Outpatient (CLI) | payer OTHER, SELFPAY | LOC: LAB.DROPOF 09-08 06:25 | PROVIDERS: PCP Nurse Practitioner Family; Visit Provider Nurse Practitioner Family | DX: J02.9 Acute pharyngitis, unspecified (principal) | CPT/HCPCS: 87070 ==

== ENCOUNTER 2023-11-17 18:55 | Emergency (ER) | payer OTHER, SELFPAY ==
[2023-11-17 19:20] VITALS: BP 142/97; PULSE 87; RESP 20; TEMP 37; O2SAT 100; BMI 32.2
--- NOTE | 2023-11-17 19:52 | ED_ITS ---
Discharge Plan Disposition Patient Disposition: Home, Self-Care Condition: Good Prescriptions Prescriptions: New azithromycin [Zithromax Z-Gianfranco] 250 mg tablet See Rx Instructions .ROUTE .COMPLEX 5 Days Qty: 6 0RF Rx Instructions: For 250 mg dose pack: take 500 mg today (day 1), then 250 mg for 4 days (days 2-5) benzonatate 100 mg capsule 100 mg PO TID PRN (Reason: cough) Qty: 30 0RF methylprednisolone [Medrol (Gianfranco)] 4 mg tablets,dose pack See Rx Instructions .Route .COMPLEX 6 Days Qty: 21 0RF Rx Instructions: taper pack; No Action atorvastatin 40 mg tablet 40 mg PO HS losartan-hydrochlorothiazide 50-12.5 mg tablet 1 tab PO QAM Qty: 90 3RF omeprazole 40 mg capsule,delayed release(DR/EC) 40 mg PO DAILY Rx Instructions: TAKE ONE CAPSULE BY MOUTH EVERY DAY DIRECTED Referrals Follow up/Referrals: Lucy Javed APRN [Primary Care Provider] - See instructions Activity Restrictions/Add. Instructions Additional Instructions/Restrictions: * Start antibiotic. Be sure to complete entire prescription even if feeling better * Monitor temp. Tylenol every 4 hours as needed and / or ibuprofen every 6 hours as needed ( As long as your primary care physician has told you that it ok to take both. For fever/aches/pains ER if no less than 101 despite Tylenol or Motrin * Humidifier/vaporizer or hot steamy shower * *Tessalon Perles will not cause drowsiness but use at bedtime to help stop cough so that you may get some rest. *Start steroid tomorrow. Helps with inflammation therefore, cough and wheezing. Follow directions on the package. Reviewed side effects. Patient reports taking them before. Follow up IMMEDIATELY for new or worsening of symptoms OR no noticeable improvement over the next 48-72 hours. 911 immediately for any life threatening symptoms such as chest pain or difficulty Clinical Impressions Clinical Impression: Sinusitis Qualifiers: Sinusitis location: unspecified location Chronicity: unspecified Qualified Code(s): J32.9 - Chronic sinusitis, unspecified Instructions Patient Instructions: Sinusitis, DI for Sinusitis Print Language Print Language: Bengali Discharge ED Provider: Rachel Benson [facility] [place] HPI General Stated complaint: Sore throat,cough,SOA,VAUGHN body aches Mode of Arrival: Ambulatory Source of Information: Patient Limitations: No Limitations Time Seen by Provider: 11/17/23 19:52 Description of Symptoms (Recalled from Triage Doc. by RN): PATIENT C/O COUGH, CONGESTION, BODY ACHES, SORE THROAT AND HEADACHE X 2 DAYS HEENT Symptoms (Recalled from RN notes): Yes Resp Symptoms (Recalled from RN notes): Yes Skin Symptoms (Recalled from RN notes): No MS Symptoms (Recalled from RN notes): No Functional Status (Recalled from RN notes): WNL History of Present Illness Provider Complaint: Patient states that he hasnt been feeling well for the last couple of days States that he has been having sore throat, sinus congestion and pressure, drainage in the back of his throat for the last couple of days and today he wasnt feeling any better so he came in to get checked Related Data Home Medications ?Medication ?Instructions ?Recorded ?Confirmed atorvastatin 40 mg tablet 40 mg PO HS 07/24/22 11/17/23 omeprazole 40 mg capsule,delayed 40 mg PO DAILY 11/17/23 11/17/23 release Previous Rx's ?Medication ?Instructions ?Recorded losartan 50 mg-hydrochlorothiazide 1 tab PO QAM #90 tabs 07/29/23 12.5 mg tablet azithromycin 250 mg tablet See Rx Instructions PO .COMPLEX 5 11/17/23 (Zithromax Z-Gianfranco) days #6 tabs benzonatate 100 mg capsule 100 mg PO TID PRN cough #30 caps 11/17/23 methylprednisolone 4 mg tablets in See Rx Instructions .Route 11/17/23 a dose pack (Medrol (Gianfranco)) .COMPLEX 6 days #21 tabs Allergies Allergy/AdvReac Type Severity Reaction Status Date / Time morphine [MORPHINE] Allergy Mild DIZZINESS Verified 07/29/23 10:31 AND VOMITING allopurinol Allergy Verified 11/17/23 19:27 lisinopril AdvReac Mild cough Verified 07/29/23 10:31 meloxicam [From Mobic] AdvReac Dry Eye, Verified 07/29/23 10:31 Headaches, Blurred Vision Worker's Comp Is this a Worker's Comp case?: No [facility] Disclaimer: The information contained in this section may have been updated after the patient was seen, as this information can be updated by other users. Medical History (Updated 11/17/23 @ 20:05 by Rachel Benson APRN) URI (upper respiratory infection) Acute middle ear effusion Excessive cerumen in both ear canals Gout Gastroenteritis Sinusitis Frontal headache Surgical History No significant past surgical history Family History Other No significant family history Social History Smoking Status: Never smoker second hand exposure: No alcohol intake: current alcohol intake frequency: holidays/special occasions only substance use type: denies use current occupational status: employed Travel in the last 8 weeks: None household members: spouse housing: house current occupation: [employer] current occupational exposures/hazards: No caffeine: Yes ROS Obtained: Yes All systems reviewed & no additional complaints except as documented and Yes Systems reviewed as appropriate & no additional complaints except as documented Constitutional Constitutional: Reports system reviewed and no additional complaints, except as documented, Reports as per HPI, Reports body ache and Reports headache(s) ENT Ears, Nose, Mouth, and Throat: Reports system reviewed and no additional complaints, except as documented, Reports as per HPI, Reports headache(s), Reports sinus pain, Reports sinus pressure and Reports sore throat Cardiovascular Cardiovascular: Reports system reviewed and no additional complaints, except as documented and Reports as per HPI Respiratory Respiratory: Reports system reviewed and no additional complaints, except as documented, Reports as per HPI and Reports cough Gastrointestinal Gastrointestingal: Reports system reviewed and no additional complaints, except as documented and as per HPI Neurologic Neurologic: Reports headache(s) Physical Exam General General appearance: alert and in no apparent distress ENT ENT exam: Present mucous membranes moist Expanded ENT Exam Nose exam: Present sinus tenderness Throat exam: Present other (Pharyngeal erythema noted with PND) Respiratory Respiratory exam: Present normal lung sounds bilaterally; Absent respiratory distress or wheezes Cardiovascular Cardiovascular exam: Present regular rate, normal rhythm and normal heart sounds Abdominal Exam Abdominal exam: Present soft and normal bowel sounds; Absent distention or tenderness Neurological Exam Neurological exam: Present alert, oriented X3 and normal gait Medical Decision Making Boaz Inquiry Pt receiving controlled substance: No Boaz was queried for this patient: No Vital Signs: 11/17/23 19:20 Temperature 98.6 F Temperature Source Oral Pulse Rate [Left Brachial] 87 Respiratory Rate 20 Blood Pressure [Left Arm] 142/97 H Blood Pressure Mean [Left Arm] 112 Blood Pressure Source [Left Arm] Automatic Cuff Blood Pressure Position [Left Arm] Sitting 02 Sat by Pulse Oximetry 100 Oxygen Delivery Method Room Air Lab Data Lab results reviewed: Yes I reviewed the patient's lab results.
[2023-11-17 19:53] LABS: UTC Strep Screen (Rapid) Negative (Negative)
[2023-11-17] MEDS: METHYLPREDNISOLONE SOD SUCC 125MG VIAL 125 MG IM (20:12)
[2023-11-17] MEDS: cefTRIAXone 1GM VIAL 1 GM IM (20:12)
[2023-11-17] MEDS: LIDOCAINE 1% 5ML PF VIAL IM (20:12)
[2023-11-17 20:25] VITALS: BP 142/97; PULSE 87; RESP 20; TEMP 37; O2SAT 100
== END 2023-11-17 20:35 | disposition home or self-care (01) ==
PROVIDERS: Emergency Provider Nurse Practitioner; PCP Nurse Practitioner Family
DX: J01.90 Acute sinusitis, unspecified (principal); R09.82 Postnasal drip; R07.0 Pain in throat
CPT/HCPCS: 87880; 96372; 99212; 99214; G0463; J0696; J2919

== ENCOUNTER 2023-12-13 17:26 | Emergency (ER) | payer OTHER, SELFPAY ==
[2023-12-13 17:27] VITALS: BP 115/77; PULSE 98; RESP 20; TEMP 36.6; O2SAT 99; BMI 31.7
--- NOTE | 2023-12-13 17:28 | HMH.EDGENADL ---
Discharge Plan Disposition Patient Disposition: Home, Self-Care Condition: Good Prescriptions Prescriptions: No Action irbesartan 75 mg tablet 75 mg PO DAILY Qty: 90 0RF diclofenac sodium 75 mg tablet,delayed release (DR/EC) 75 mg PO DAILY Patient Comments: TAKE ONE TABLET BY MOUTH TWICE DAILY atorvastatin 40 mg tablet 80 mg PO HS omeprazole 40 mg capsule,delayed release(DR/EC) 40 mg PO DAILY Rx Instructions: TAKE ONE CAPSULE BY MOUTH EVERY DAY DIRECTED Referrals Follow up/Referrals: Lucy Javed APRN [Primary Care Provider] - See instructions Activity Restrictions/Add. Instructions Additional Instructions/Restrictions: Please stop taking your blood pressure medicine with hydrochlorothiazide in it until you see your PCP. Follow-up with your PCP in 48 hours for recheck of your creatinine. I have referred you to cardiology for full cardiac evaluation. Return to ER for any worsening signs or symptoms as needed. Clinical Impressions Clinical Impression: Near syncope, Acute kidney injury (nontraumatic) Stand Alone Forms Stand Alone Forms: Work/School Release Instructions Patient Instructions: DI for Syncope in Adults (Fainting), DI for Syncope in Children (Fainting) Print Language Print Language: Kazakh Discharge ED Provider: Heber Gupta General Adult HPI <SHEREE Edwards - Last Filed: 12/13/23 22:31> General Chief complaint: Syncope Stated complaint: passing out, dizzy Time Seen by Provider: 12/13/23 17:28 History of Present Illness HPI narrative: Patient presents for evaluation of near syncope. Patient gives a history of having a recent upper respiratory tract infection and a visit to [facility] approximately 4 weeks ago at which she was given antibiotics and steroids however no definitive pneumonia or bacterial infection was identified nor was COVID or flu. Patient states that since then he has had 2 episodes of sudden weakness and dizziness and near syncope. 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 He was able to assist himself to the ground and did not pass out. Patient does have a history of osteoarthritis of bilateral knees and is on diclofenac as well as high blood pressure and he is on 1 antihypertensive combination with HCTZ. He denies chest pain fever chills hemoptysis hematochezia melena nausea vomiting diarrhea. Related Data Home Medications ?Medication ?Instructions ?Recorded ?Confirmed omeprazole 40 mg capsule,delayed 40 mg PO DAILY 11/17/23 12/14/23 release atorvastatin 40 mg tablet 80 mg PO HS 12/14/23 12/14/23 diclofenac sodium 75 mg 75 mg PO DAILY 12/14/23 12/14/23 tablet,delayed release Previous Rx's ?Medication ?Instructions ?Recorded irbesartan 75 mg tablet 75 mg PO DAILY #90 tabs 12/14/23 Allergies Allergy/AdvReac Type Severity Reaction Status Date / Time morphine [MORPHINE] Allergy Mild DIZZINESS Verified 12/14/23 13:06 AND VOMITING allopurinol Allergy Verified 12/14/23 13:06 lisinopril AdvReac Mild cough Verified 12/14/23 13:06 meloxicam [From Mobic] AdvReac Dry Eye, Verified 12/14/23 13:06 Headaches, Blurred Vision PFS <SHEREE Edwards - Last Filed: 12/13/23 22:31> COUNT INCLUDES THE [facility] Disclaimer: The information contained in this section may have been updated after the patient was seen, as this information can be updated by other users. Medical History (Updated 12/14/23 @ 13:35 by Lucy Javed APRN) Near syncope Sinusitis URI (upper respiratory infection) Acute middle ear effusion Excessive cerumen in both ear canals Gout Gastroenteritis Sinusitis Frontal headache Surgical History No significant past surgical history Family History Other No significant family history Social History (Reviewed
--- NOTE | 2023-12-13 17:35 | ECG_ITS ---
APPROVED REPORT Exam: Resting ECG HR:75 bpm ECG Measurements Heart Rate 75 AXES ID 158 P 56 QRSd 105 QRS -42 QT 360 T 5 QTc 388 Conclusion SINUS RHYTHM LEFT AXIS DEVIATION [QRS AXIS < -30] PATTERN CONSISTENT WITH PULMONARY DISEASE ABNORMAL ECG Electronically signed by : JUANIS MARCANO, 12/14/2023 15:10:23
[2023-12-13 17:40] VITALS: BP 109/80; PULSE 98; O2SAT 98
[2023-12-13 17:41] VITALS: BP 125/88; PULSE 70; O2SAT 99
[2023-12-13 18:00] VITALS: BP 110/74; PULSE 75; O2SAT 95
[2023-12-13 18:09] LABS: Albumin Level 4.5 g/dl (3.5-5.0); Chloride 102 mmol/L (98-107); Potassium 3.6 mmoL/L (3.5-5.1); Sodium 138 mmol/L (136-145)
[2023-12-13 18:11] LABS: Alanine Aminotransferase 75 U/L (12-78); Basophils # 0.1 K/mm3 (0-0.2); Blood Urea Nitrogen 28 mg/dl (9-20); Creatinine Clearance Estimated 71 mL/min (50-200); Eosinophils # 0.3 K/mm3 (0.0-0.4); Eosinophils % 2.7 % (0.1-12.0); Estimated Glomerular Filt Rate 38 ml/min (>60); GFR (African American) 46 ML/MIN (>60); Hematocrit 45.1 % (42.0-52.0); Hemoglobin 14.9 g/dL (14.1-18.0); Lymphocytes # 1.9 K/mm3 (0.7-4.5); Lymphocytes % 17.8 % (10-50); Mean Corpuscular Hemoglobin 30.1 pg (27.0-31.2); Mean Corpuscular Volume 91.2 fl (80-94); Monocytes # 0.6 K/mm3 (0.1-1.0); Monocytes % 5.5 % (1.7-9.3); Neutrophils # 7.6 K/mm3 (1.8-7.8); Platelet Count 257 K/mm3 (142-424); Red Blood Count 4.95 M/mm3 (4.60-6.20); Red Cell Distribution Width 14.2 % (11.5-17.5); White Blood Count 10.5 K/mm3 (4.8-10.8)
[2023-12-13 18:12] LABS: Albumin/Globulin Ratio 1.8 (1.1-1.8); Alkaline Phosphatase 41 U/L (38-126); Anion Gap 10.6 mEq/L (5-15); Aspartate Amino Transferase 45 U/L (17-59); Bilirubin,Total 1.6 mg/dl (0.2-1.3); Calcium 9.7 mg/dl (8.4-10.2); Carbon Dioxide 29 mmol/L (22.0-30.0); Globulin 2.5 g/dL (1.3-3.2); Glucose 142 mg/dl (74-100)
[2023-12-13 19:00] LABS: Microscopic, Urine URINE MICROSCOPIC (MICROSCOPIC)
[2023-12-13 19:01] LABS: Appearance,Urine CLEAR (Clear); Bilirubin,Urine Negative (Negative); Blood, Urine Negative (Negative); Color,Urine YELLOW (Yellow); Glucose,Urine (UA) Negative (Negative); Ketones,Urine Negative (Negative); Leukocyte Esterase,Urine Negative (Negative); Nitrate,Urine Negative (Negative); Protein,Urine Negative (Negative); Urobilinogen,Urine 0.2 EU/dl (0.2)
[2023-12-13 19:22] LABS: Bacteria,Urine Trace /lpf; Hyaline Casts,Urine Occasional #/lpf (0); WBC,Urine Occasional #/hpf (0-3)
[2023-12-13 19:44] VITALS: BP 119/75; PULSE 62; RESP 19; TEMP 36.6; O2SAT 100
== END 2023-12-13 19:45 | disposition home or self-care (01) ==
PROVIDERS: Physician Assistant; Emergency Provider Emergency Medicine; PCP Nurse Practitioner Family
DX: R55 Syncope and collapse (principal); N17.9 Acute kidney failure, unspecified; R42 Dizziness and giddiness
CPT/HCPCS: 80053; 81001; 85025; 93005; 96361; 96374; 96375; 99285; J0131; J2405; J7120

== ENCOUNTER 2023-12-14 13:50 | Outpatient (CLI) | payer OTHER, SELFPAY ==
[2023-12-14 16:29] LABS: Microscopic, Urine URINE MICROSCOPIC (MICROSCOPIC)
[2023-12-14 16:43] LABS: Basophils # 0.1 K/mm3 (0-0.2); Basophils % 0.8 % (0.1-2.0); Eosinophils # 0.3 K/mm3 (0.0-0.4); Eosinophils % 4.5 % (0.1-12.0); Hematocrit 42.1 % (42.0-52.0); Hemoglobin 14.1 g/dL (14.1-18.0); Lymphocytes # 1.8 K/mm3 (0.7-4.5); Lymphocytes % 27.4 % (10-50); Mean Corpuscular HGB Conc 33.6 g/dL (31.8-35.4); Mean Corpuscular Hemoglobin 31.4 pg (27.0-31.2); Mean Corpuscular Volume 93.5 fl (80-94); Mean Platelet Volume 9.6 fl (7.4-10.4); Monocytes # 0.5 K/mm3 (0.1-1.0); Monocytes % 7.6 % (1.7-9.3); Neutrophils % 59.7 % (37.0-80.0); Platelet Count 227 K/mm3 (142-424); Red Cell Distribution Width 14.2 % (11.5-17.5); White Blood Count 6.6 K/mm3 (4.8-10.8)
[2023-12-14 16:50] LABS: Appearance,Urine CLEAR (Clear); Bilirubin,Urine Negative (Negative); Blood, Urine Negative (Negative); Color,Urine YELLOW (Yellow); Glucose,Urine (UA) Negative (Negative); Ketones,Urine Negative (Negative); Leukocyte Esterase,Urine Negative (Negative); Nitrate,Urine Negative (Negative); Protein,Urine Negative (Negative); Specific Gravity, Urine 1.025 (1.005-1.030); Urobilinogen,Urine 0.2 EU/dl (0.2)
[2023-12-14 17:01] LABS: Total Protein,Urine Random < 5.0 mg/dL (0.0-12.0)
[2023-12-14 17:28] LABS: Alanine Aminotransferase 66 U/L (12-78); Albumin Level 4.2 g/dl (3.5-5.0); Albumin/Globulin Ratio 1.7 (1.1-1.8); Alkaline Phosphatase 40 U/L (38-126); Anion Gap 7.8 mEq/L (5-15); Aspartate Amino Transferase 39 U/L (17-59); Bilirubin,Total 1.1 mg/dl (0.2-1.3); Blood Urea Nitrogen 20 mg/dl (9-20); Calcium 9.7 mg/dl (8.4-10.2); Carbon Dioxide 29 mmol/L (22.0-30.0); Chloride 107 mmol/L (98-107); Cholesterol 203 mg/dl (140-200); Estimated Glomerular Filt Rate 59 ml/min (>60); GFR (African American) 71 ML/MIN (>60); Globulin 2.5 g/dL (1.3-3.2); Glucose 92 mg/dl (74-100); HDL Cholesterol 34 mg/dl (40-60); Magnesium 1.6 mg/dl (1.6-2.3); Phosphorous 2.6 mg/dl (2.5-4.5); Potassium 3.8 mmoL/L (3.5-5.1); Sodium 140 mmol/L (136-145); Total Protein,Serum 6.7 g/dl (6.3-8.2); Triglycerides 279 mg/dl (30-150); VLDL Cholesterol 56 mg/dL (0-40)
[2023-12-14 17:39] LABS: Direct LDL Cholesterol 125.53 mg/dL (100-129)
[2023-12-14 17:47] LABS: Free T4 (Free Thyroxine) 1.07 ng/dl (0.78-2.19)
[2023-12-14 18:01] LABS: Hemoglobin A1C 6.1 % (4.0-6.0); Thyroid Stimulating Hormone 2.24 uIU/mL (0.465-4.68)
[2023-12-14 20:19] LABS: RBC,Urine Occasional #/hpf (0-3)
[2023-12-14 20:20] LABS: Bacteria,Urine 1+ /lpf
[2023-12-30 12:39] LABS: Renin Activity, Plasma 5.861
== END 2023-12-14 23:59 | disposition home or self-care (01) ==
LOC: LAB.DROPOF 12-15 09:57
PROVIDERS: PCP Nurse Practitioner Family; Visit Provider Nurse Practitioner Family
DX: I10 Essential (primary) hypertension (principal); R55 Syncope and collapse; Z13.1 Encounter for screening for diabetes mellitus; N17.9 Acute kidney failure, unspecified; E78.5 Hyperlipidemia, unspecified; E66.09 Other obesity due to excess calories; Z68.32 Body mass index [BMI] 32.0-32.9, adult
CPT/HCPCS: 80050; 80053; 80061; 81001; 82088; 83036; 83735; 84100; 84156; 84244; 84439; 84443; 85025

== ENCOUNTER 2023-12-30 07:33 | Outpatient (CLI) | payer OTHER, SELFPAY ==
--- NOTE | 2023-12-30 07:39 | CA_ITS ---
FINAL REPORT TECHNIQUE: Grayscale, color Doppler and duplex Doppler ultrasound of the kidneys, aorta and renal arteries was performed. Multiple velocities were measured. CLINICAL HISTORY: syncope, HANNY, HTN, HLD COMPARISON: None FINDINGS: Aorta velocity: 111 cm/sec Right kidney: 10.8 cm. No evidence of hydronephrosis or mass. Right intrarenal RI: 0.67-0.69 Right renal artery velocity: 154 cm/sec. Right RAR (Renal artery-Aortic Ratio): 1.38 Left Kidney: 11.0 cm. No evidence of hydronephrosis or mass. Left intrarenal RI: 0.63-0.74 Left renal artery velocity: 119 cm/sec. Left RAR (Renal Artery-Aortic Ratio): 1.08 IMPRESSION: No evidence of significant renal artery stenosis. CT angiogram or postcontrast MR angiogram would be more sensitive for evaluation of possible renal artery stenosis. Reviewed, Interpreted and Dictated by Jn Martins III, MD Transcribed by Lexie Gonzalez Authenticated and [facility]
--- NOTE | 2023-12-30 07:43 | CA_ITS ---
FINAL REPORT TECHNIQUE: Color Doppler, duplex Doppler and paz scale sonography of the bilateral neck arterial vasculature was performed. Velocities were measured in the carotid arteries. Stenosis evaluation based on the validated velocity criteria. CLINICAL HISTORY: syncope, HANNY, HTN, HLD COMPARISON: None FINDINGS: The peak systolic velocity of the right common carotid artery is 60 cm/s. The peak systolic velocity of the right internal carotid artery is 89 cm/s and end diastolic velocity 32 cm/s. The ICA/CCA ratio is 1.36. A mild amount of plaque is present. The right external carotid artery is patent. The right vertebral artery is patent with antegrade flow. The peak systolic velocity of the left common carotid artery is 75 cm/s. The peak systolic velocity of the left internal carotid artery is 100 cm/s and end diastolic velocity 36 cm/s. The ICA/CCA ratio is 1.39. A mild amount of plaque is present. The left external carotid artery is patent.The left vertebral artery is patent with antegrade flow. IMPRESSION: Less than 50% bilateral carotid stenoses. Bilateral patent vertebral arteries with antegrade flow. If indicated, CTA or MRA could further evaluate. Reviewed, Interpreted and Dictated by Jn Martins III, MD Transcribed by Lexie Gonzalez Authenticated and [facility]
--- NOTE | 2023-12-30 07:43 | CA_ITS ---
APPROVED REPORT EXAM: Comprehensive 2D, Doppler, and color-flow Echocardiogram Smoking Tobacco Cutter Operator: Tamara Herrera RVT Ht: 6 ft 0 in Wt: 243lbs BSA: 2.31 BP: 134/88 mmHg Indications: SYNCOPE,HTN,HLD 2D Dimensions IVSd 0.65 cm M: 0.6-1.2 LVEF (Visual) 58.30 % PWd 0.92 cm M: 0.6 - 1.2 LA Volume 47.20 mL LVDd 5.53 cm M: 4.2 - 5.9 LA Volume Index 20.43 mL/m2 (M/F) 16-34 LVDs 3.81 cm M: 2.5 - 4.0 M-Mode Dimensions LA Diam 4.24 cm (1.9-4.0) TAPSE 2.17 (<1.7) LV Diastology E Decel Time 200 (160-240 msec) E/A Ratio 1.2 Aortic Valve LIZANDRO Index 1.08 cm2/m2 AoV Peak Phillip. 127.0 (50-130 cm/s) AO Peak GR. 6.40 mmHg AO Mean GR. 3.40 (<5 mmHg) AO VTI 30.6 (18-25 cm) LIZANDRO (VTI) 2.57 (2.5-4.5 cm2) Mitral Valve MV E Max Phillip. 89.0 (40-130 cm/s) MV A Velocity 73.0 (40-130 cm/s) E/A Ratio 1.22 MV PHT 59.0 ms Pulmonary Valve PV Peak Velocity 71.0 (50-150 cm/s) Tricuspid Valve TR P. Velocity 290.00 cm/s RAP Estimate 10.00 mmHg RVSP 43.60 mmHg Left Ventricle The left ventricle is normal size. The left ventricular systolic function is normal. The left ventricular ejection fraction is within the normal range. There is normal left ventricular wall thickness. There is normal LV segmental wall motion. The left ventricular diastolic function is normal. LVEF is 55%. Right Ventricle The right ventricle is normal size. The right ventricular systolic function is normal. Atria The left atrium size is normal. The right atrium size is normal. There is no Doppler evidence of interatrial shunt. Aortic Valve The aortic valve opens well. There is no aortic valvular stenosis. No aortic regurgitation is present. Mitral Valve The mitral valve is normal in structure. No evidence of mitral valve stenosis. There is no mitral valve regurgitation noted. Tricuspid Valve Tricuspid valve is grossly normal in structure and function. Trace tricuspid regurgitation. There is insufficient TR jet to estimate RVSP. Pulmonic Valve The pulmonary valve is normal in structure. Trace pulmonic regurgitation. Great Vessels The aortic root is normal in size. The ascending aorta is not well visualized. IVC is normal in size and collapses >50% with inspiration. Pericardium There is no pericardial effusion. Other Information Study Quality: Fair Conclusion Normal biventricular systolic function. No significant valvular stenosis or regurgitation. Electronically signed by : Kandi Wilder MD 01/04/2024 14:49:44
--- NOTE | 2023-12-30 08:46 | US_ITS ---
FINAL REPORT TECHNIQUE: Ultrasound images of the kidneys and bladder were obtained. CLINICAL HISTORY: hyperlypodemia, syncope, kidney failure FINDINGS: The right kidney measures 12.2 cm in length. It is normal in echogenicity. There is no hydronephrosis. The left kidney measures 11.1 cm in length. It is normal in echogenicity. There is no hydronephrosis. The spleen is unremarkable. There is fatty infiltration of the liver. IMPRESSION: Fatty liver. Reviewed, Interpreted and Dictated by Jn Martins III, MD Transcribed by Brittany Vera Authenticated and [facility]
== END 2023-12-30 23:59 | disposition home or self-care (01) ==
LOC: RT 07:35
PROVIDERS: PCP Nurse Practitioner Family; Visit Provider Nurse Practitioner Family
DX: N17.9 Acute kidney failure, unspecified (principal); R55 Syncope and collapse; I10 Essential (primary) hypertension; E78.5 Hyperlipidemia, unspecified; E66.09 Other obesity due to excess calories; Z68.32 Body mass index [BMI] 32.0-32.9, adult
CPT/HCPCS: 76770; 93306; 93880; 93976

== ENCOUNTER 2024-01-08 11:43 | Outpatient (CLI) | payer OTHER, SELFPAY ==
--- NOTE | 2024-01-08 11:44 | CT_ITS ---
APPROVED REPORT Engagement Quality Consultant: CLINICAL INDICATION Chest Pain TECHNIQUE Image Acquisition: A 128 slice MDCT scanner ([employer] View) was used for data acquisition. A noncontrast coronary calcium scan was performed. A CT attenuation threshold of 130 Hounsfield units (HU) was used for the detection of calcium in contiguous voxels of 1 sq mm in area to be counted as individual lesions. Bolus tracking in the ascending aorta with a threshold of 180 HU was performed. Immediately afterwards, ECG synchronized cardiac CT was then performed from the cardiac base to apex using retrospective gating with ECG tube current modulation. A total of 85 mL of Isovue 370 mg/mL contrast medium was administered at 5 mL/sec followed by a saline flush using a biphasic injection protocol. A tube voltage of 120 KVp was used. The patient received the following medications prior to the cardiac CT. 50 mg of oral metoprolol 15 mg of oral ivabradine 0.8 mg of sublingual nitroglycerin The average heart rate at the time of acquisition was 56 bpm and regular. Image Reconstruction Transaxial images were reconstructed at 0.67 mm slide thickness. Data was reviewed interactively on an advanced workstation capable of 2 and 3-dimensional displays in all conventional reconstruction formats, including multiplanar reformations, maximum intensity projections, curved multiplanar reformations, and volume rendered reconstructions. When applicable, selected routine images describing the relevant coronary anatomy and pathology were saved and sent to PACS. Complications None Technical Quality Overall image quality was good. Coronary artery opacification was adequate. Total DLP (Dose-Length Product) is 1628.4 mGy-cm. The reported value represents the total of one or more individual components during the CT acquisition of this date and at this time, and as such, the same value may appear in more than one CT report depending on the interpreting/reporting physicians. COMPARISON None FINDINGS CT Coronary Calcium Scoring LMA (Left Main Artery) = 0 LAD (Left Anterior Descending) = 10 LCX (Left Coronary Circumflex) = 0 RCA (Right Coronary Artery) = 0 Total Calcium Score = 10 using the AJ-130 method. The observed calcium score of 10 is at 71st percentile for subjects of the same age, sex, and race/ethnicity. The interpretation of the calcium heart score is based on the following continuum*: 0 = no calcified plaque detected (risk of coronary artery disease is very low ??? less than 5%) 1-10 = calcium detected in extremely minimal levels (risk of coronary diseases is still low ??? less than 10%) 11-100 = mild levels of plaque detected with certainty (mild or minimal narrowing of heart arteries is likely) 101-400 = definite,at least moderate levels of plaque detected (relatively high risk of a heart attack within 3-5 years) >401-999 = extensive levels of plaque detected (high risk of heart attack, high levels of vascular disease are present, high likelihood of at least one significant coronary narrowing) *The calcium heart score quantifies the burden of coronary calcification/plaque in the coronary arteries. The calcium heart score is not able to evaluate the presence or burden of non-calcified (i.e. soft) plaque. There is no identifiable calcification in the aortic valve, mitral annulus or mitral valve, pericardium, or myocardium. Coronary CT Angiography The coronary arterial system is right dominant. Quantitative Stenosis Grading: Left Main (LM): The left main originates normally from the left sinus of Valsalva. The LM bifurcates into the left anterior descending artery and left circumflex artery. The LM is patent with no evidence of atherosclerosis. Left Anterior Descending (LAD) and Diagonal Branches: The LAD gives off 2 diagonal branch(es). There is mixed calcified/noncalcified plaque noted in the mid LAD segment, with up to 50-70% luminal stenosis after the first diagonal branch take-off. There is no evidence of LAD-myocardial bridge. Left Circumflex (LCX) and Obtuse Marginals (OM): The LCX gives off 2 Obtuse Marginal (OM) branch(es). The LCX and its branches are patent with no evidence of atherosclerosis. Right Coronary Artery (RCA): The RCA originates normally from the right sinus of Valsalva. The RCA gives off a posterior descending artery (PDA) and posterolateral (PL) branches. The RCA and its branches are patent with no evidence of atherosclerosis. Non-Coronary Cardiac Findings: Analysis of the left ventricular (LV) structure and function was performed after 3-D reconstruction of the LV from axial images, with user-corrected automatic contouring for assessment of LV volumes and user-defined reconstruction from oblique planes for measurement of 3-D cardiac structure and function. -The left ventricle systolic function is normal. -There is no left atrial appendage filling defect. Two right pulmonary veins and two left pulmonary veins drain normally into the left atrium. -No pericardial thickening or calcification. -Central and branch pulmonary arteries in the [id number] are unremarkable. -Thoracic aorta within the visualized thoracic aortic-branches in the [id number] is unremarkable. Extracardiac Structures No significant extra-cardiac findings. Note, however, that this study is focused on the cardiac findings. IMPRESSION -Presence of coronary calcification with an Agatston score = 10 using the AJ-130 method. -The observed calcium score of 10 is at 71st percentile for subjects of the same age, sex, and race/ethnicity. -Moderate atherosclerotic coronary disease in the mid-LAD segment after the 1st diagnoal branch take-off, with possible evidence of significant flow-limiting atherosclerosis of the coronary arteries. -CAD-RADS 3. Management recommendations per ACC/AHA guidelines*, as clinically appropriate. *Recommendations: CAD RADS 0: Reassurance. Consider non-atherosclerotic causes of chest pain. CAD RADS 1: Consider non-atherosclerotic causes of chest pain. Consider preventive therapy and risk factor modification. CAD RADS 2: Consider non-atherosclerotic causes of chest pain. Consider preventive therapy and risk factor modification, particularly for patients with nonobstructive plaque in multiple segments. CAD RADS 3: Consider further functional testing. Consider symptom-guided anti-ischemic and preventive pharmacotherapy as well as risk factor modification per published guideline statements. CAD RADS 4A: Consider further functional testing or invasive coronary angiography with revascularization per published guideline statements. Consider symptom-guided anti-ischemic and preventive pharmacotherapy as well as risk factor modification per published guideline statements. CAD RADS 4B: Invasive coronary angiography recommended with revascularization per published guideline statements. Consider symptom-guided anti-ischemic and preventive pharmacotherapy as well as risk factor modification per published guideline statements. CAD RADS 5: Consider invasive angiography and/or viability assessment with revascularization per published guideline statements. Consider symptom-guided anti-ischemic and preventive pharmacotherapy as well as risk factor modification per published guideline statements. CRITICAL RESULT None COMMUNICATION Per this written report The coronary and cardiac findings of this CCTA were reviewed, reported, and signed by Smooth Wilder MD (Card Services Specialist) Conclusion Electronically signed by : Kandi Wilder MD 01/11/2024 14:07:24
[2024-01-08 11:48] VITALS: BMI 31.8
[2024-01-08 11:56] VITALS: BP 146/89; PULSE 72; RESP 18; O2SAT 99
[2024-01-08] MEDS: IVABRADINE HCL 7.5MG TABLET PO (12:03)
[2024-01-08] MEDS: METOPROLOL TARTRATE 50MG TABLET PO (12:04)
[2024-01-08 12:43] VITALS: BP 145/93; PULSE 52; RESP 18; O2SAT 99
[2024-01-08] MEDS: NITROGLYCERIN 0.4MG SL TABLET SL (12:43)
[2024-01-08 12:48] VITALS: BP 107/61; PULSE 63; RESP 18; O2SAT 95
[2024-01-08] MEDS: IOPAMIDOL-370 (76%);100ML BOTTLE 85 ML IV (12:59)
[2024-01-08] MEDS: 0.9 % SODIUM CHLORIDE 50 ML VIAL IV (12:59)
[2024-01-08] MEDS: SODIUM CHLORIDE 0.9% 10ML SYR (RAD ONLY) 10 ML IV (12:59)
[2024-01-08 13:00] VITALS: BP 110/65; PULSE 52; RESP 18; O2SAT 95
[2024-01-08 13:19] VITALS: BP 112/58; PULSE 50; RESP 18; O2SAT 99
== END 2024-01-08 13:22 | disposition home or self-care (01) ==
PROVIDERS: PCP Nurse Practitioner Family; Visit Provider Internal Medicine
DX: R55 Syncope and collapse (principal); R42 Dizziness and giddiness; I10 Essential (primary) hypertension
CPT/HCPCS: 75574; Q9967

== ENCOUNTER 2024-01-18 14:46 | Outpatient (CLI) | payer OTHER, SELFPAY ==
--- NOTE | 2024-01-18 14:55 | XR_ITS ---
PROCEDURE INFORMATION: Exam: XR Cervical Spine Exam date and time: 01/18/2024 2:58 PM Age: 48 years old Clinical indication: Neck pain; Additional info: Neck pain, no known trauma TECHNIQUE: Imaging protocol: Radiologic exam of the cervical spine. Views: 4 or 5 views. COMPARISON: CR XR CERVICAL SPINE 3V 08/26/2019 11:48 AM FINDINGS: Bones/joints: There is no evidence for dynamic instability on flexion and extension views. The alignment of the cervical spine shows mild straightening with no evidence of subluxation or malalignment. The vertebral body heights are preserved, and there is mild osteophyte formation indicative of degenerative changes. The disc spaces exhibit mild narrowing. Facet joints also display mild degenerative changes, but without significant hypertrophy. Soft tissues: The prevertebral soft tissues are within normal limits, and there are no acute osseous abnormalities, fractures, or dislocations. Other findings: Prevertebral and paravertebral soft tissues appear unremarkable. IMPRESSION: 1. Mild degenerative changes of the cervical spine are observed, characterized by osteophyte formation and disc space narrowing. 2. There is no evidence of acute osseous pathology.
== END 2024-01-18 23:59 | disposition home or self-care (01) ==
LOC: RAD 14:47
PROVIDERS: PCP Nurse Practitioner Family; Visit Provider Nurse Practitioner Family
DX: M54.2 Cervicalgia (principal)
CPT/HCPCS: 72052

== ENCOUNTER → 2024-01-19 06:26 | Outpatient (CLI) | payer OTHER, SELFPAY | LOC: SL 01-22 06:27 | PROVIDERS: PCP Nurse Practitioner Family; Visit Provider Nurse Practitioner Family | DX: G47.33 Obstructive sleep apnea (adult) (pediatric) (principal) | CPT/HCPCS: G0399 ==

== ENCOUNTER 2024-01-21 06:54 | Outpatient (CLI) | payer OTHER, SELFPAY ==
--- NOTE | 2024-01-21 | CA_ITS ---
APPROVED REPORT Exam: Exercise Treadmill Technologist: Melinda Cheng, Ht: 6 ft 0 in Wt: 229 lbs BSA: 2.26 m2 HR: 73 bpm BP: 143/95 mmHg Rhythm: NSR Medical History Medical History: HTN, Hyperlipidemia Medications: Omeprazole,,,,, Aspirin,,,,, Ferrous sulfate,,,,, Atorvastatin,,,,, Diclofenac Sodium,,,,, FeNOfibrate nanocrystallized,,,,, Losartan Hydrochlorothiazide,,,,, Allergies: morphine, allopurinol, lisinopril, meloxicam Cardiac Risk Factors: HTN, Hyperlipidemia Stress Test Details Test: Ishan HR Resting HR: 93 bpm Max Heart Rate (APMHR): 171 bpm Max HR Achieved: 175 bpm Target HR (85% APMHR): 145 bpm % of APMHR: 102 Recovery HR: 118 bpm HR response to stress: Normal HR response to stress BP Resting BP: 143.0/95 mmHg Max BP: 196/114 mmHg Recovery BP: 157.0/97.0 mmHg BP response to stress: Normal blood pressure response to stress. ECG Resting ECG: NSR, T wave changes in inferior leads Stress EC.[address] depression Arrhythmia: None Clinical Exercise duration: 11:00 min Highest Stage Achieved: Exercise capacity: 12.8 METs Stress ECG Conclusion Pt exercised 11:00 on Ishan protocol Max HR: 175 % of PM: 102% Max BP: 196/114 Mets: 12.8 Ectopy: None ST changes: 0.[address] depression Conclusion: No no ECG evidence of ischemia at peak stress. Myoview images reported separately. Test Summary REST 03:46 0.0 0.0 93 . 143/ 95 . . Stage 1 01:00 10.0 1.7 104 . . . . Stage 1 02:00 10.0 1.7 105 . . . . Stage 1 03:00 10.0 1.7 108 . 162/ 88 . . Stage 2 01:00 12.0 2.5 117 . . . . Stage 2 02:00 12.0 2.5 124 . . . . Stage 2 03:00 12.0 2.5 131 . 184/ 88 . . Stage 3 01:00 14.0 3.4 140 . . . . Stage 3 02:00 14.0 3.4 149 . . . . Stage 3 03:00 14.0 3.4 154 . . . . Stage 4 01:00 16.0 4.2 164 . . . . Stage 4 02:00 16.0 4.2 173 . . . Stop exercise at 11:00 RECOVERY 01:00 0.0 0.0 167 . . . . RECOVERY 02:00 0.0 0.0 152 . . . . RECOVERY 03:00 0.0 0.0 141 . 196/114 . . RECOVERY 04:00 0.0 0.0 130 . 186/ 91 . . RECOVERY 05:00 0.0 0.0 126 . 186/ 91 . . RECOVERY 06:00 0.0 0.0 127 . 184/ 97 . . RECOVERY 07:00 0.0 0.0 120 . 184/ 97 . . RECOVERY 08:00 0.0 0.0 119 . 169/ 96 . . RECOVERY 09:00 0.0 0.0 118 . 169/ 96 . . RECOVERY 09:50 0.0 0.0 112 . 157/ 97 . . Electronically signed by : Kandi Wilder MD 01/21/2024 12:46:51
--- NOTE | 2024-01-21 06:54 | NM_ITS ---
APPROVED REPORT Exam: Nuclear Stress Test Indication: syncope..fatigue Patient Location: Outpatient Stress Tech: Melinda Cheng CT Tech:PRIYANK Braun RT(R)(N) Ht: 6 ft 0 in Wt: 221 lbs HR: 93 bpm BP: 143/95 mmHg BSA: 2.22 m2 Rhythm: NSR TID: 0.94 History: syncope..fatigue Procedure: Patient exercised on Ishan protocol 11 minutes and sec, resting heart rate 93 bpm, resting blood pressure 143/95 mmHg, with exercise maximum heart rate achived was 175 bpm which is 102 % of the maximum predicted heart rate and blood pressure was 196/114 mmHg. Test was stopped due to fatigue. Patient denied any complaint of chest pain. Patient has average exercise capacity, achieved 12.8 METs of workload on treadmill, the blood pressure response to exercise was normal. Cardiac Stress and Resting SPECT Images: Cardiac Stress and Resting SPECT images were obtained using technetium 99m Myoview 31.4 mCi stress and 9.97 mCi at rest. Raw images demonstrate significant soft tissue overlap with the cardiac borders. The significant aggressive interpretation of the study findings. Resting and stress imaging in supine and prone positions demonstrated a medium sized, moderate, fixed perfusion defect in the LV wall. There is minimal reversibility in the surrounding region. Gated imaging demonstrates normal global LV systolic function. There is mild hypokinesis of the basal inferior LV wall. LVEF is calculated at 60%. Conclusion: Technically difficult study due to significant soft tissue overlap with the cardiac borders. Medium sized, moderate, fixed perfusion defect in the LV wall. There is minimal reversibility in the surrounding region. Gated imaging demonstrates normal global LV systolic function. There is mild hypokinesis of the basal inferior LV wall. LVEF is calculated at 60%. Electronically signed by : Kandi Wilder MD 01/21/2024 12:50:41
[2024-01-21] MEDS: ISOTOPE MYOVIEW (PER STUDY) 1 DOSE IV (10:40)
[2024-01-21] MEDS: SODIUM CHLORIDE 0.9% 10ML SYR (RAD ONLY) 10 ML IV ×2 (10:40)
== END 2024-01-21 23:59 | disposition home or self-care (01) ==
LOC: RAD 06:54
PROVIDERS: PCP Nurse Practitioner Family; Visit Provider Internal Medicine
DX: R07.9 Chest pain, unspecified (principal); R93.1 Abnormal findings on diagnostic imaging of heart and coronary circulation
CPT/HCPCS: 78452; 93017; 93018; A9502

== ENCOUNTER 2024-01-27 17:00 | Outpatient (RCR) | payer OTHER, SELFPAY ==
--- NOTE | 2024-01-22 15:47 | [facility].PTOPEV ---
PT Outpatient Evaluation Rehab PT Outpatient Evaluation Start: 01/22/24 15:19 Freq: Status: Active Protocol: Document 01/22/24 15:20 KATELYN (Rec: 01/22/24 15:46 KATELYN [id number]) E-signed By David Kaufman, PT Outpatient Therapy Subjective History Subjective History Patient is a 48 year old male presenting to outpatient PT with reports of sub-acute cervical spine pain with associated headaches L>R. No reports of radicular symptoms. No recent imaging to report. Other comorbidities include RCRx2 LS fusion, HL and HTN. New diagnosis of cancer in past 12 No months? Chief Complaint Pain,Stiff Symptom Type Ache,Dull Symptoms Relieved By Prescription Meds Symptoms Aggravated By Physical Activity,Lifting Prior Functional Limitations None Current Functional Limitations Reaching,Lifting,Housework, Recreation Activity Symptom Description Constant but Variable Level of pain today (0-10) 2 Pain scale - at its best (0-10) 2 Pain scale - at its worst (0-10) 6 Cervical Eval Palpation Cervical Muscles R Upper Trapezius,L Upper Trapezius Cervical/Thoracic Palpation Findings Tenderness Posture Head/C-Spine Posture Sitting Position C-Spine Flattened Head/C-Spine Posture Standing Position C-Spine Flattened Flexibility Deficits Upper Trapezius Muscle Length (R) Moderate Tightness,(L) Moderate Tightness Levaetor Scapulae Muscle Length (R) Moderate Tightness,(L) Moderate Tightness Scalene Group Muscle Length (R) Moderate Tightness,(L) Moderate Tightness Pectoralis Minor Muscle Length (R) Moderate Tightness,(L) Moderate Tightness Passive Joint Mobility Cervical PIVM Dec: R C3/4 L C3/4 R C4/5 L C4/5 R C5/6 L C5/6 R C6/7 L C6/7 R C7/T1 L C7/T1 WNL: R OA L OA R AA L AA R C2/3 L C2/3 AROM Cervical Spine Extension Active Range of 36 Motion (degrees) Cervical Spine Flexion Active Range of 41 Motion (degrees) Cervical Spine Right Lateral Flexion 28 Active Range of Motion (degrees) Cervical Spine Left Lateral Flexion 34 Active Range of Motion (degrees) Cervical Spine Right Rotation Active WNL Range of Motion (degrees) Cervical Spine Left Rotation Active WNL Range of Motion (degrees) MMT Bilateral Deltoid (C5) 5 Normal Biceps Brachii Strength Grade 5 Normal Wrist Extension Strength Grade 5 Normal Triceps Brachii Strength Grade 5 Normal Wrist Flexion Strength Grade 5 Normal Extensor Pollicis Longus Strength Grade 5 Normal Finger Abduction Strength Grade 5 Normal Special Test C-Spine Foraminal Compression (Spurling) Negative Left,Negative Right Test C-Spine Foraminal Distraction Test Positive Neck Disability Index Neck Disability Index Section 1: Pain Intensity The pain is very mild at moment Section 2: Personal Care (washing, I can look after myself dressing, etc.) normally without causing extra pain Section 3: Lifting I can lift heavy weights without extra pain Section 4: Reading I can read as much as I want to with no pain in my neck Section 5: Headaches I have headaches almost all the time Section 6: Concentration I can concentrate fully when I want to with no difficulty Section 7: Work I can do as much work as I want to Section 8: Driving I can drive my car as long as I want with slight pain in my neck Section 9: Sleeping My sleep is greatly disturbed (3-5 hrs sleepless) Section 10: Recreation I am able to engage in all my recreation activities with some pain in NDI Score 12 Outpatient Therapy Assessment Impairments Problems/Impairmments Palpation Tenderness,Impaired Range of Motion,Impaired Driving,Impaired Lifting, Impaired Household Care, Impaired Recreational Activities,Subjective C/O Pain Prognosis Rehab Potential Good Clinical Impression Consistent with Diagnosis Yes Short Term Goals Number of Weeks 2 Decrease Subjective C/O Pain Yes: 4/10 at worst Patient to be Ind w/ HEP Yes Engineer Specialist Goals Number of Weeks 4-6 Decreased Palpation Tenderness Yes: 1/4 Increase Range of Motion Yes: WNL Improve Ability For Household Care Yes Improve Tolerance to Work Activities Yes Improve Neck Disability Index Score Yes: <10 Decrease Subjective C/O Pain Yes: 2/10 at worst Outpatient Therapy Plan of Care Treatment Plan May Include Therapeutic Exercise Including Home Yes Exercise Program Manual Therapy Techniques Yes Neuromuscular Re-education Yes Therapeutic Activities to Return to Yes Previous Functional/Work Level Gait Training Yes ADL/Self Care Education Yes Mechanical Traction Yes Dry Needling Yes Thermal Modalities Yes Electrical Stimulation Yes Ultrasound/Phonophoresis Yes Iontophoresis Yes Massage Yes Eval/Re-Eval Yes Frequency Times per week 2-3 Duration Number of Weeks 4-6 Addendums This patient is a candidate for social No or vocational rehab? Patient/Guardian verbally acknowledges Yes understanding of treatment program and consents to further treatment? Patient/Guardian verbally acknowledges Yes understanding of diagnosis, prognosis and goals for treatment? Eval Complexity PT Charges 81202 - Moderate Complexity Shoulder/Elbow Eval Shoulder Objective Measurements Elbow Objective Measurements PHYSICIAN CERTIFICATION: I certify the specified therapy services for Anabel Alfonso are required, authorized, and reviewed every 30 days.
== END 2024-01-27 23:59 | disposition home or self-care (01) ==
LOC: PT 17:00
PROVIDERS: Visit Provider Nurse Practitioner Family
DX: M54.2 Cervicalgia (principal)
CPT/HCPCS: 20561; 97014; 97110; 97163; 97530; G0283

== ENCOUNTER 2024-01-28 16:47 | Outpatient (CLI) | payer OTHER, SELFPAY ==
--- NOTE | 2024-01-28 16:47 | MR_ITS ---
FINAL REPORT CLINICAL HISTORY: blurry vision, dizziness, falls, off balance COMPARISON: 06/21/2020 FINDINGS: Multiplanar MR imaging of the brain was performed without contrast. There are scattered foci of increased T2 signal in the cerebral white matter that have a nonspecific appearance, largest in the posterior periventricular regions, stable when compared to the prior CT of 2020. The differential diagnosis would include demyelination, moderate changes of ischemic/gliotic microvascular disease, or vasculitis. There is no evidence of intracranial hemorrhage or mass. There are small left frontal periventricular cystic areas, that may represent neuroepithelial cysts or cystic encephalomalacia. No abnormal extra-axial fluid collection is seen. No abnormality is seen on the diffusion weighted images. The posterior fossa and brainstem are unremarkable. Normal major vessel vascular flow voids are seen. IMPRESSION: Multiple foci of increased signal most prominent in the posterior periventricular regions, stable when compared to the prior exam. The differential diagnosis would include demyelination such as multiple sclerosis, moderate changes of ischemic/gliotic microvascular disease, or vasculitis. No acute intracranial abnormality. Reviewed, Interpreted and Dictated by Jn Martins III, MD Transcribed by Ana Paula Kennedy Authenticated and [facility]
== END 2024-01-28 23:59 | disposition home or self-care (01) ==
LOC: RAD 16:47
PROVIDERS: PCP Nurse Practitioner Family; Visit Provider Nurse Practitioner Family
DX: H53.8 Other visual disturbances (principal); R42 Dizziness and giddiness; R53.83 Other fatigue; R55 Syncope and collapse
CPT/HCPCS: 70551

== ENCOUNTER 2024-03-10 13:30 | Outpatient (CLI) | payer OTHER, SELFPAY ==
[2024-03-10 13:43] LABS: Anion Gap 13.4 mEq/L (5-15); Blood Urea Nitrogen 22 mg/dl (9-20); Calcium 9.8 mg/dl (8.4-10.2); Carbon Dioxide 30 mmol/L (22.0-30.0); Chloride 101 mmol/L (98-107); Chol/HDL Ratio 5.4 (1-3.5); Cholesterol 185 mg/dl (140-200); Estimated Glomerular Filt Rate 58 ml/min (>60); GFR (African American) 71 ML/MIN (>60); Glucose 101 mg/dl (74-100); HDL Cholesterol 34 mg/dl (40-60); Potassium 4.4 mmoL/L (3.5-5.1); Sodium 140 mmol/L (136-145); Triglycerides 186 mg/dl (30-150); VLDL Cholesterol 37 mg/dL (0-40)
[2024-03-10 13:53] LABS: Direct LDL Cholesterol 124.65 mg/dL (100-129)
[2024-03-10 16:27] LABS: HIV (1&2) Antibody Rapid NONREACTIVE (NONREACTIVE)
[2024-03-11 05:24] LABS: HCV Ab Non Reactive (Non Reactive)
== END 2024-03-10 23:59 | disposition home or self-care (01) ==
LOC: LAB.DROPOF 13:31
PROVIDERS: PCP Nurse Practitioner Family; Visit Provider Nurse Practitioner Family
DX: N17.9 Acute kidney failure, unspecified (principal); Z11.59 Encounter for screening for other viral diseases; Z11.4 Encounter for screening for human immunodeficiency virus [HIV]; E78.5 Hyperlipidemia, unspecified; Z13.1 Encounter for screening for diabetes mellitus
CPT/HCPCS: 80048; 80061; 86803; 87389

== ENCOUNTER 2024-10-23 16:37 | Emergency (ER) | payer BC, SELFPAY ==
--- OUTSIDE RECORDS SUMMARY | 2024-10-23 11:45 | XMS_ITS | Continuity of Care Document ---
Author Name [facility] Organization [facility] Care Team Providers Care Rag Inspector Name Role Phone [facility] Unavailable Unavailable Problems Combined list of problems from Department of Defense and Veterans Affairs facilities. It does not include entries that were removed or entered in error. Problem Status Onset Date Problem Type Date of Resolution Comments Source Ankle joint pain (SNOMED CT [id number]) Active Condition [place] Chronic Back Pain (ICD-9-CM 724.5) [facility] DJD of Lumbar Spine Active Condition [facility] N Essential hypertension Active Condition [facility] N Family History Active Condition Mar 202017 Entered By: REBA GEE Comment[facility] 70[facility] Entered By: REBA GEE Comment: [facility] age 73: [facility] Entered By: REBA GEE Comment: Sibs: healthy [facility] N H/O: surgery Active Condition Mar 31, 2018 Entered By: REBA GEE Comment[facility] Entered By: REBA GEE Comment: LUMBAR SURGERY FUSION 2006 2017 Entered By: REBA GEE Comment: left shoulder surgery 1998 [facility] N Hyperlipidemia Active Condition [place] [facility] Knee pain Active Condition [facility] N Social and personal history finding Active Condition Mar 31, 2018 Entered By: REBA GEE Comment: : 3 children 2017 Entered By: REBA GEE Comment: Occupation: [facility] 2017 Entered By: REBA GEE Comment: Smoke: never 2017 Entered By: REBA GEE Comment: ETOH: occ 1-2 months [facility] Vitamin D deficiency Active Condition [facility] Simple obesity Inactive Condition 01/07/2013 [facility] Diagnosis: ICD-10-CM R79.9 Abnormal finding of blood chemistry, unspecified Active Diagnosis [facility] Diagnosis: ICD-10-CM I10 Essential (primary) hypertension Active Diagnosis [facility] Diagnosis: ICD-10-CM Z71.89 Other specified counseling Active Diagnosis [facility] Medications Combined list of outpatient medications from Department of Defense and [facility] facilities.Medications provided include 1) outpatient medications from the last 15 months, and 2) patient-reported medications. Medication Details Route Status Patient Instructions Prescription Expires Prescription Number Last Dispense Date Ordering Provider Order Date Order Qty Source ALLOPURINOL 100MG TAB TAKE ONE TABLET BY MOUTH DAILY FOR GOUT ORAL ACTIVE 07/31/2024 [id number] ALON FRANCOIS 2023 90 [place] [facility] [place] 40MG TAB TAKE ONE TABLET BY MOUTH DAILY FOR CHOLESTE ROL -DO NOT DRINK GRAPEFRU IT JUICE WHILE ON THIS DRUG ORAL DISCONT INUED (EDIT) 07/31/2024 [id number] ALON FRANCOIS 2023 90 [place] [facility] [place] [facility] N [place] 80MG TAB TAKE ONE TABLET BY MOUTH DAILY FOR CHOLESTE ROL -DO NOT DRINK GRAPEFRU IT JUICE WHILE ON THIS DRUG ORAL ACTIVE 07/14/2025 [id number] 5 ALON FRANCOIS 2024 90 [place] [facility] [place] [facility] N CA 80MG TAB TAKE ONE TABLET BY MOUTH DAILY FOR CHOLESTE ROL -DO NOT DRINK GRAPEFRU IT JUICE WHILE ON THIS DRUG ORAL DISCONT INUED 07/31/2024 [id number] 5 ALON FRANCOIS 2023 90 [place] [facility] COLCHICINE 0.6MG TAB TAKE 1 TABLET BY MOUTH DAILY FOR GOUT -MAX: 3 TABLETS/ 24HR ORAL 08/30/2023 [id number] 4 ALON FRANCOIS 2023 30 [place] [facility] DICLOFENAC NA 75MG TAB,EC TAKE ONE TABLET BY MOUTH TWICE A DAY FOR PAIN/INF LAMMATIO N ORAL DISCONT INUED BY PROVIDE R 07/29/2025 [id number] 5 ALESSANDROALON PALMER 2024 180 [place] [facility] EZETIMIBE 10MG TAB TAKE ONE TABLET BY MOUTH EVERY EVENING FOR CHOLESTE ROL ORAL ACTIVE 08/08/2025 [id number] 5 ALON FRANCOIS 2024 90 [place] [facility] FENOFIBRATE TAB TAKE BY MOUTH DAILY ORAL ACTIVE ALON FRANCOIS 2024 [place] [facility] HYDROCHLORO THIAZIDE 12.5MG/LOSA RTAN POTASSIUM 50MG TAB TAKE 1 TABLET BY MOUTH DAILY FOR BLOOD PRESSURE /HEART ORAL ACTIVE 07/14/2025 [id number] 5 ALON FRANCOIS 2024 90 [place] [facility] HYDROCHLORO THIAZIDE 12.5MG/LOSA RTAN POTASSIUM 50MG TAB TAKE 1 TABLET BY MOUTH DAILY FOR BLOOD PRESSURE /HEART ORAL DISCONT INUED 07/31/2024 [id number] 5 ALON FRANCOIS 2023 90 [place] [facility] OMEPRAZOLE 20MG CAP,EC TAKE TWO CAPSULES BY MOUTH ONCE A DAY 30 MINUTES BEFORE A MEAL FOR STOMACH -TAKE ON AN EMPTY STOMACH ORAL ACTIVE 07/29/2025 [id number] 5 ALESSANDROALON PALMER 2024 180 [place] [facility] OMEPRAZOLE 20MG CAP,EC TAKE TWO CAPSULES BY MOUTH ONCE A DAY 30 MINUTES BEFORE A MEAL FOR STOMACH -TAKE ON AN EMPTY STOMACH ORAL DISCONT INUED 07/31/2024 [id number] 5 ALON FRANCOIS 2023 180 [place] [facility] Allergies, Adverse Reactions, Alerts Combined list of allergies from Department of Defense and Veterans Affairs facilities. It does not include entries that were removed or entered in error. Substance Category Reaction Severity Reaction type Status Date Reported Comments Source MORPHINE Propensity to adverse reactions to drug (finding) Nausea and vomiting active 8 [facility] Immunizations Combined list of available immunizations from the Department of Defense and Veterans Affairs facilities. Immunization Series Date Given Administered By Site Reaction Lot Number CVX Code Drug Youth Career Specialist Status Comments Source COVID-19 (MODERNA), MRNA, LNP-S, PF, 100 MCG/0.5ML DOSE OR 50 MCG/0.25ML DOSE 2 2021 207 complet ed [place] [facility] COVID-19 (MODERNA), MRNA, LNP-S, PF, 100 MCG/0.5ML DOSE OR 50 MCG/0.25ML DOSE 2 2020 207 complet ed HISTORICA L INFORMATI ON - FROM OTHER REGISTRY, [place] [facility] COVID-19 (MODERNA), MRNA, LNP-S, PF, 100 MCG/0.5ML DOSE OR 50 MCG/0.25ML DOSE 1 2020 207 complet ed [place] [facility] INFLUENZA, UNSPECIFIED FORMULATION 2019 88 complet ed [place] [facility] HEP A, ADULT 2018 52 complet ed [place] [facility] HEP A, ADULT 2017 52 complet ed [place] [facility] INFLUENZA, SEASONAL, INJECTABLE 2017 141 complet ed [place] [facility] FLU,3 YRS (HISTORICAL) 2013 88 complet ed [place] [facility] FLU,3 YRS (HISTORICAL) 2011 88 complet ed [place] [facility] TDAP (HISTORICAL) 2009 115 complet ed [place] [facility] TD(ADULT) UNSPECIFIED FORMULATION 2009 139 complet ed [place] [facility] RABIES, INTRAMUSCULAR INJECTION 3 2008 18 complet ed HISTORICA L INFORMATI ON - FROM OTHER REGISTRY, [place] [facility] RABIES, INTRAMUSCULAR INJECTION 2 2008 18 complet ed HISTORICA L INFORMATI ON - FROM OTHER REGISTRY, [place] [facility] RABIES, INTRAMUSCULAR INJECTION 1 2008 18 complet ed HISTORICA L INFORMATI ON - [facility] Results Combined list of recent chemistry, hematology and other laboratory results from Department of Defense and Veterans Affairs, ranging from 15 months to all on record, depending upon the facility. Order Name Results Value Reference Range Date Interpretation Specimen Comments Source URIC ACID URATE [MASS/VOLUM E] IN SERUM OR PLASMA 5.7 mg/dL 3.5 - 7.2 07/28 Specimen Type: PLASMA Comment: Estimated Glomerular Filtration Rate (eGFR) calculated using the 2020 Chronic Kidney Disease-Epi demiology (CKD-EPI) Collaborati on creatinine equation; units of measure are mL/min/1.73 m2. Results are only valid for adults (>=18 years) whose serum creatinine is in a steady state. eGFR calculation s are not valid for patients with acute kidney injury and for patients on dialysis. Creatinine- based estimates of kidney function may also be inaccurate in patients with reduced creatinine generation due to decreased muscle mass (e.g., malnutritio n, severe hypoalbumin emia, sarcopenia, chronic neuromuscul ar disease, amputations , severe heart failure or liver disease) and in patients with increased creatinine generation due to increased muscle mass (e.g., muscle builders, anabolic steroids) or increased dietary intake. As drug clearance is proportiona l to total GFR and not GFR indexed to body surface area (BSA), in individuals with a BSA substantial ly different than 1.73 m2, drug dosing should be based on the reported eGFR value de-indexed from BSA by multiplying by the individual' s BSA and dividing by 1.73. CKD is diagnosed based on abnormaliti es of kidney structure or function, present for >3 months, with implication s for health and disease. CKD is classified and staged based on cause, eGFR and albuminuria (quantified as urine albumin to creatinine ratio). An eGFR >60 mL/min/1.73 m2 in the absence of increased urine albumin excretion or structural abnormaliti es does not represent CKD. eGFR CKD Interpretat ion (mL/min/1.7 3 m2) stage >=90 G1 Normal 60-89 G2 Mild decrease 45-59 G3A Mild to moderate decrease 30-44 G3B Moderate to severe decrease 15-29 G4 Severe decrease <15 G5 Kidney failure Ordering Provider: ANTONIA FRANCOIS Report Released Date/Time: Jul 28, 2024 11:58 AM Reporting Lab: [facility] [address] [address] Performing Lab: [facility] [address] [address] [facility] LIPID PROFILE CHOLESTEROL [MASS/VOLUM E] IN SERUM OR PLASMA 181 mg/dL 0 - 199 07/28 Specimen Type: PLASMA Comment: Estimated Glomerular Filtration Rate (eGFR) calculated using the 2020 Chronic Kidney Disease-Epi demiology (CKD-EPI) Collaborati on creatinine equation; units of measure are mL/min/1.73 m2. Results are only valid for adults (>=18 years) whose serum creatinine is in a steady state. eGFR calculation s are not valid for patients with acute kidney injury and for patients on dialysis. Creatinine- based estimates of kidney function may also be inaccurate in patients with reduced creatinine generation due to decreased muscle mass (e.g., malnutritio n, severe hypoalbumin emia, sarcopenia, chronic neuromuscul ar disease, amputations , severe heart failure or liver disease) and in patients with increased creatinine generation due to increased muscle mass (e.g., muscle builders, anabolic steroids) or increased dietary intake. As drug clearance is proportiona l to total GFR and not GFR indexed to body surface area (BSA), in individuals with a BSA substantial ly different than 1.73 m2, drug dosing should be based on the reported eGFR value de-indexed from BSA by multiplying by the individual' s BSA and dividing by 1.73. CKD is diagnosed based on abnormaliti es of kidney structure or function, present for >3 months, with implication s for health and disease. CKD is classified and staged based on cause, eGFR and albuminuria (quantified as urine albumin to creatinine ratio). An eGFR >60 mL/min/1.73 m2 in the absence of increased urine albumin excretion or structural abnormaliti es does not represent CKD. eGFR CKD Interpretat ion (mL/min/1.7 3 m2) stage >=90 G1 Normal 60-89 G2 Mild decrease 45-59 G3A Mild to moderate decrease 30-44 G3B Moderate to severe decrease 15-29 G4 Severe decrease <15 G5 Kidney failure Ordering Provider: ANTONIA FRANCOIS Report Released Date/Time: Jul 28, 2024 11:58 AM Reporting Lab: [facility] [address] [address] Performing Lab: [address] [address] [facility] LIPID PROFILE TRIGLYCERID E [MASS/VOLUM E] IN SERUM OR PLASMA 193 mg/dL 0 - 149 07/28 H Specimen Type: PLASMA Comment: Estimated Glomerular Filtration Rate (eGFR) calculated using the 2020 Chronic Kidney Disease-Epi demiology (CKD-EPI) Collaborati on creatinine equation; units of measure are mL/min/1.73 m2. Results are only valid for adults (>=18 years) whose serum creatinine is in a steady state. eGFR calculation s are not valid for patients with acute kidney injury and for patients on dialysis. Creatinine- based estimates of kidney function may also be inaccurate in patients with reduced creatinine generation due to decreased muscle mass (e.g., malnutritio n, severe hypoalbumin emia, sarcopenia, chronic neuromuscul ar disease, amputations , severe heart failure or liver disease) and in patients with increased creatinine generation due to increased muscle mass (e.g., muscle builders, anabolic steroids) or increased dietary intake. As drug clearance is proportiona l to total GFR and not GFR indexed to body surface area (BSA), in individuals with a BSA substantial ly different than 1.73 m2, drug dosing should be based on the reported eGFR value de-indexed from BSA by multiplying by the individual' s BSA and dividing by 1.73. CKD is diagnosed based on abnormaliti es of kidney structure or function, present for >3 months, with implication s for health and disease. CKD is classified and staged based on cause, eGFR and albuminuria (quantified as urine albumin to creatinine ratio). An eGFR >60 mL/min/1.73 m2 in the absence of increased urine albumin excretion or structural abnormaliti es does not represent CKD. eGFR CKD Interpretat ion (mL/min/1.7 3 m2) stage >=90 G1 Normal 60-89 G2 Mild decrease 45-59 G3A Mild to moderate decrease 30-44 G3B Moderate to severe decrease 15-29 G4 Severe decrease <15 G5 Kidney failure Ordering Provider: ANTONIA FRANCOIS Report Released Date/Time: Jul 28, 2024 11:58 AM Reporting Lab: [facility] [address] [phone] Performing Lab: [facility] [address] [phone] [facility] LIPID PROFILE CHOLESTEROL IN HDL [MASS/VOLUM E] IN SERUM OR PLASMA 32 mg/dL 40 - 69 07/28 L Specimen Type: PLASMA Comment: Estimated Glomerular Filtration Rate (eGFR) calculated using the 2020 Chronic Kidney Disease-Epi demiology (CKD-EPI) Collaborati on creatinine equation; units of measure are mL/min/1.73 m2. Results are only valid for adults (>=18 years) whose serum creatinine is in a steady state. eGFR calculation s are not valid for patients with acute kidney injury and for patients on dialysis. Creatinine- based estimates of kidney function may also be inaccurate in patients with reduced creatinine generation due to decreased muscle mass (e.g., malnutritio n, severe hypoalbumin emia, sarcopenia, chronic neuromuscul ar disease, amputations , severe heart failure or liver disease) and in patients with increased creatinine generation due to increased muscle mass (e.g., muscle builders, anabolic steroids) or increased dietary intake. As drug clearance is proportiona l to total GFR and not GFR indexed to body surface area (BSA), in individuals with a BSA substantial ly different than 1.73 m2, drug dosing should be based on the reported eGFR value de-indexed from BSA by multiplying by the individual' s BSA and dividing by 1.73. CKD is diagnosed based on abnormaliti es of kidney structure or function, present for >3 months, with implication s for health and disease. CKD is classified and staged based on cause, eGFR and albuminuria (quantified as urine albumin to creatinine ratio). An eGFR >60 mL/min/1.73 m2 in the absence of increased urine albumin excretion or structural abnormaliti es does not represent CKD. eGFR CKD Interpretat ion (mL/min/1.7 3 m2) stage >=90 G1 Normal 60-89 G2 Mild decrease 45-59 G3A Mild to moderate decrease 30-44 G3B Moderate to severe decrease 15-29 G4 Severe decrease <15 G5 Kidney failure Ordering Provider: ANTONIA FRANCOIS Report Released Date/Time: Jul 28, 2024 11:58 AM Reporting Lab: [facility] [address] [address] Performing Lab: [facility] [address] [address] [facility] LIPID PROFILE CHOLESTEROL IN LDL [MASS/VOLUM E] IN SERUM OR PLASMA BY DIRECT ASSAY 132 mg/dL 0 - 100 07/28 H Specimen Type: PLASMA Comment: Estimated Glomerular Filtration Rate (eGFR) calculated using the 2020 Chronic Kidney Disease-Epi demiology (CKD-EPI) Collaborati on creatinine equation; units of measure are mL/min/1.73 m2. Results are only valid for adults (>=18 years) whose serum creatinine is in a steady state. eGFR calculation s are not valid for patients with acute kidney injury and for patients on dialysis. Creatinine- based estimates of kidney function may also be inaccurate in patients with reduced creatinine generation due to decreased muscle mass (e.g., malnutritio n, severe hypoalbumin emia, sarcopenia, chronic neuromuscul ar disease, amputations , severe heart failure or liver disease) and in patients with increased creatinine generation due to increased muscle mass (e.g., muscle builders, anabolic steroids) or increased dietary intake. As drug clearance is proportiona l to total GFR and not GFR indexed to body surface area (BSA), in individuals with a BSA substantial ly different than 1.73 m2, drug dosing should be based on the reported eGFR value de-indexed from BSA by multiplying by the individual' s BSA and dividing by 1.73. CKD is diagnosed based on abnormaliti es of kidney structure or function, present for >3 months, with implication s for health and disease. CKD is classified and staged based on cause, eGFR and albuminuria (quantified as urine albumin to creatinine ratio). An eGFR >60 mL/min/1.73 m2 in the absence of increased urine albumin excretion or structural abnormaliti es does not represent CKD. eGFR CKD Interpretat ion (mL/min/1.7 3 m2) stage >=90 G1 Normal 60-89 G2 Mild decrease 45-59 G3A Mild to moderate decrease 30-44 G3B Moderate to severe decrease 15-29 G4 Severe decrease <15 G5 Kidney failure Ordering Provider: ANTONIA FRANCOIS Report Released Date/Time: Jul 28, 2024 11:58 AM Reporting Lab: [facility] [address] [address] Performing Lab: [facility] [address] [facility] GLYCOHEMO GLOBIN HEMOGLOBIN A1C/HEMOGLO BIN.TOTAL IN BLOOD BY HPLC 5.5 4.4 - 5.6 07/28 Specimen Type: BLOOD Comment: Prediabetes : 5.7%-6.4% Diabetes: >= 6.5% [facility] guidelines for A1c interpretat ion: Glycemic control targets are based on Shared Decision Making between clinicians and patients. Criteria used to establish an A1c target recommendat ion can be found at https://www .[place].gov/kalyani lityandpati entsafety/ and include the use of result accuracy and precision(C V) of the A1c tests clinicians utilize at their own sites of practice. Values obtained from A1C measurement s can vary. For typical A1C assays, a reported value of 7.0 could actually be between 6.72 and 7.28 if measured by a reference method. A reported value of 9.0 could actually be between 8.73 and 9.27. Ref: https://ngs p.org/CAPda ta.asp. The in-house [employer]-Taptu D-100 analyzer has a historical CV <= 2%. Contact the laboratory for further performance characteris tics of this assay. Ordering Provider: ANTONIA FRANCOIS Report Released Date/Time: Jul 28, 2024 11:58 AM Reporting Lab: [facility] [address] [facility] [address] Performing Lab: [facility] [address] [address] [facility] PANEL 5 CREATININE [MASS/VOLUM E] IN SERUM OR PLASMA 1.42 mg/dL 0.72 - 1.25 07/28 H Specimen Type: PLASMA Comment: Estimated Glomerular Filtration Rate (eGFR) calculated using the 2020 Chronic Kidney Disease-Epi demiology (CKD-EPI) Collaborati on creatinine equation; units of measure are mL/min/1.73 m2. Results are only valid for adults (>=18 years) whose serum creatinine is in a steady state. eGFR calculation s are not valid for patients with acute kidney injury and for patients on dialysis. Creatinine- based estimates of kidney function may also be inaccurate in patients with reduced creatinine generation due to decreased muscle mass (e.g., malnutritio n, severe hypoalbumin emia, sarcopenia, chronic neuromuscul ar disease, amputations , severe heart failure or liver disease) and in patients with increased creatinine generation due to increased muscle mass (e.g., muscle builders, anabolic steroids) or increased dietary intake. As drug clearance is proportiona l to total GFR and not GFR indexed to body surface area (BSA), in individuals with a BSA substantial ly different than 1.73 m2, drug dosing should be based on the reported eGFR value de-indexed from BSA by multiplying by the individual' s BSA and dividing by 1.73. CKD is diagnosed based on abnormaliti es of kidney structure or function, present for >3 months, with implication s for health and disease. CKD is classified and staged based on cause, eGFR and albuminuria (quantified as urine albumin to creatinine ratio). An eGFR >60 mL/min/1.73 m2 in the absence of increased urine albumin excretion or structural abnormaliti es does not represent CKD. eGFR CKD Interpretat ion (mL/min/1.7 3 m2) stage >=90 G1 Normal 60-89 G2 Mild decrease 45-59 G3A Mild to moderate decrease 30-44 G3B Moderate to severe decrease 15-29 G4 Severe decrease <15 G5 Kidney failure Ordering Provider: ANTONIA FRANCOIS Report Released Date/Time: Jul 28, 2024 11:58 AM Reporting Lab: [facility] [address] [facility] [phone] Performing Lab: [facility] [address] [place] [phone] [facility] PANEL 5 UREA NITROGEN [MASS/VOLUM E] IN SERUM OR PLASMA 25 mg/dL 07/28 Specimen Type: PLASMA Comment: Estimated Glomerular Filtration Rate (eGFR) calculated using the 2020 Chronic Kidney Disease-Epi demiology (CKD-EPI) Collaborati on creatinine equation; units of measure are mL/min/1.73 m2. Results are only valid for adults (>=18 years) whose serum creatinine is in a steady state. eGFR calculation s are not valid for patients with acute kidney injury and for patients on dialysis. Creatinine- based estimates of kidney function may also be inaccurate in patients with reduced creatinine generation due to decreased muscle mass (e.g., malnutritio n, severe hypoalbumin emia, sarcopenia, chronic neuromuscul ar disease, amputations , severe heart failure or liver disease) and in patients with increased creatinine generation due to increased muscle mass (e.g., muscle builders, anabolic steroids) or increased dietary intake. As drug clearance is proportiona l to total GFR and not GFR indexed to body surface area (BSA), in individuals with a BSA substantial ly different than 1.73 m2, drug dosing should be based on the reported eGFR value de-indexed from BSA by multiplying by the individual' s BSA and dividing by 1.73. CKD is diagnosed based on abnormaliti es of kidney structure or function, present for >3 months, with implication s for health and disease. CKD is classified and staged based on cause, eGFR and albuminuria (quantified as urine albumin to creatinine ratio). An eGFR >60 mL/min/1.73 m2 in the absence of increased urine albumin excretion or structural abnormaliti es does not represent CKD. eGFR CKD Interpretat ion (mL/min/1.7 3 m2) stage >=90 G1 Normal 60-89 G2 Mild decrease 45-59 G3A Mild to moderate decrease 30-44 G3B Moderate to severe decrease 15-29 G4 Severe decrease <15 G5 Kidney failure Ordering Provider: ANTONIA FRANCIOS Report Released Date/Time: Jul 28, 2024 11:58 AM Reporting Lab: [facility] [address] [facility] [address] Performing Lab: [facility] [place] [address] [facility] [address] [facility] PANEL 5 GLUCOSE [MASS/VOLUM E] IN SERUM OR PLASMA 111 mg/dL 74 - 100 07/28 H Specimen Type: PLASMA Comment: Estimated Glomerular Filtration Rate (eGFR) calculated using the 2020 Chronic Kidney Disease-Epi demiology (CKD-EPI) Collaborati on creatinine equation; units of measure are mL/min/1.73 m2. Results are only valid for adults (>=18 years) whose serum creatinine is in a steady state. eGFR calculation s are not valid for patients with acute kidney injury and for patients on dialysis. Creatinine- based estimates of kidney function may also be inaccurate in patients with reduced creatinine generation due to decreased muscle mass (e.g., malnutritio n, severe hypoalbumin emia, sarcopenia, chronic neuromuscul ar disease, amputations , severe heart failure or liver disease) and in patients with increased creatinine generation due to increased muscle mass (e.g., muscle builders, anabolic steroids) or increased dietary intake. As drug clearance is proportiona l to total GFR and not GFR indexed to body surface area (BSA), in individuals with a BSA substantial ly different than 1.73 m2, drug dosing should be based on the reported eGFR value de-indexed from BSA by multiplying by the individual' s BSA and dividing by 1.73. CKD is diagnosed based on abnormaliti es of kidney structure or function, present for >3 months, with implication s for health and disease. CKD is classified and staged based on cause, eGFR and albuminuria (quantified as urine albumin to creatinine ratio). An eGFR >60 mL/min/1.73 m2 in the absence of increased urine albumin excretion or structural abnormaliti es does not represent CKD. eGFR CKD Interpretat ion (mL/min/1.7 3 m2) stage >=90 G1 Normal 60-89 G2 Mild decrease 45-59 G3A Mild to moderate decrease 30-44 G3B Moderate to severe decrease 15-29 G4 Severe decrease <15 G5 Kidney failure Ordering Provider: ANTONIA FRANCOIS Report Released Date/Time: Jul 28, 2024 11:58 AM Reporting Lab: [facility] [address] [phone] Performing Lab: [facility] [address] [phone] [facility] PANEL 5 SODIUM [MOLES/VOLU ME] IN SERUM OR PLASMA 140 mmol/L 136 - 145 07/28 Specimen Type: PLASMA Comment: Estimated Glomerular Filtration Rate (eGFR) calculated using the 2020 Chronic Kidney Disease-Epi demiology (CKD-EPI) Collaborati on creatinine equation; units of measure are mL/min/1.73 m2. Results are only valid for adults (>=18 years) whose serum creatinine is in a steady state. eGFR calculation s are not valid for patients with acute kidney injury and for patients on dialysis. Creatinine- based estimates of kidney function may also be inaccurate in patients with reduced creatinine generation due to decreased muscle mass (e.g., malnutritio n, severe hypoalbumin emia, sarcopenia, chronic neuromuscul ar disease, amputations , severe heart failure or liver disease) and in patients with increased creatinine generation due to increased muscle mass (e.g., muscle builders, anabolic steroids) or increased dietary intake. As drug clearance is proportiona l to total GFR and not GFR indexed to body surface area (BSA), in individuals with a BSA substantial ly different than 1.73 m2, drug dosing should be based on the reported eGFR value de-indexed from BSA by multiplying by the individual' s BSA and dividing by 1.73. CKD is diagnosed based on abnormaliti es of kidney structure or function, present for >3 months, with implication s for health and disease. CKD is classified and staged based on cause, eGFR and albuminuria (quantified as urine albumin to creatinine ratio). An eGFR >60 mL/min/1.73 m2 in the absence of increased urine albumin excretion or structural abnormaliti es does not represent CKD. eGFR CKD Interpretat ion (mL/min/1.7 3 m2) stage >=90 G1 Normal 60-89 G2 Mild decrease 45-59 G3A Mild to moderate decrease 30-44 G3B Moderate to severe decrease 15-29 G4 Severe decrease <15 G5 Kidney failure Ordering Provider: ANTONIA FRANCOIS Report Released Date/Time: Jul 28, 2024 11:58 AM Reporting Lab: [facility] [address] [phone] Performing Lab: [facility] [address] [phone] [facility] 5 POTASSIUM [MOLES/VOLU ME] IN SERUM OR PLASMA 3.7 mmol/L 3.5 - 5.1 07/28 Specimen Type: PLASMA Comment: Estimated Glomerular Filtration Rate (eGFR) calculated using the 2020 Chronic Kidney Disease-Epi demiology (CKD-EPI) Collaborati on creatinine equation; units of measure are mL/min/1.73 m2. Results are only valid for adults (>=18 years) whose serum creatinine is in a steady state. eGFR calculation s are not valid for patients with acute kidney injury and for patients on dialysis. Creatinine- based estimates of kidney function may also be inaccurate in patients with reduced creatinine generation due to decreased muscle mass (e.g., malnutritio n, severe hypoalbumin emia, sarcopenia, chronic neuromuscul ar disease, amputations , severe heart failure or liver disease) and in patients with increased creatinine generation due to increased muscle mass (e.g., muscle builders, anabolic steroids) or increased dietary intake. As drug clearance is proportiona l to total GFR and not GFR indexed to body surface area (BSA), in individuals with a BSA substantial ly different than 1.73 m2, drug dosing should be based on the reported eGFR value de-indexed from BSA by multiplying by the individual' s BSA and dividing by 1.73. CKD is diagnosed based on abnormaliti es of kidney structure or function, present for >3 months, with implication s for health and disease. CKD is classified and staged based on cause, eGFR and albuminuria (quantified as urine albumin to creatinine ratio). An eGFR >60 mL/min/1.73 m2 in the absence of increased urine albumin excretion or structural abnormaliti es does not represent CKD. eGFR CKD Interpretat ion (mL/min/1.7 3 m2) stage >=90 G1 Normal 60-89 G2 Mild decrease 45-59 G3A Mild to moderate decrease 30-44 G3B Moderate to severe decrease 15-29 G4 Severe decrease <15 G5 Kidney failure Ordering Provider: ANTONIA FRANCOIS Report Released Date/Time: Jul 28, 2024 11:58 AM Reporting Lab: [facility] [address] [address] Performing Lab: [facility] [address] [phone] [facility] PANEL 5 CHLORIDE [MOLES/VOLU ME] IN SERUM OR PLASMA 105 mmol/L 98 - 107 07/28 Specimen Type: PLASMA Comment: Estimated Glomerular Filtration Rate (eGFR) calculated using the 2020 Chronic Kidney Disease-Epi demiology (CKD-EPI) Collaborati on creatinine equation; units of measure are mL/min/1.73 m2. Results are only valid for adults (>=18 years) whose serum creatinine is in a steady state. eGFR calculation s are not valid for patients with acute kidney injury and for patients on dialysis. Creatinine- based estimates of kidney function may also be inaccurate in patients with reduced creatinine generation due to decreased muscle mass (e.g., malnutritio n, severe hypoalbumin emia, sarcopenia, chronic neuromuscul ar disease, amputations , severe heart failure or liver disease) and in patients with increased creatinine generation due to increased muscle mass (e.g., muscle builders, anabolic steroids) or increased dietary intake. As drug clearance is proportiona l to total GFR and not GFR indexed to body surface area (BSA), in individuals with a BSA substantial ly different than 1.73 m2, drug dosing should be based on the reported eGFR value de-indexed from BSA by multiplying by the individual' s BSA and dividing by 1.73. CKD is diagnosed based on abnormaliti es of kidney structure or function, present for >3 months, with implication s for health and disease. CKD is classified and staged based on cause, eGFR and albuminuria (quantified as urine albumin to creatinine ratio). An eGFR >60 mL/min/1.73 m2 in the absence of increased urine albumin excretion or structural abnormaliti es does not represent CKD. eGFR CKD Interpretat ion (mL/min/1.7 3 m2) stage >=90 G1 Normal 60-89 G2 Mild decrease 45-59 G3A Mild to moderate decrease 30-44 G3B Moderate to severe decrease 15-29 G4 Severe decrease <15 G5 Kidney failure Ordering Provider: ANTONIA FRANCOIS Report Released Date/Time: Jul 28, 2024 11:58 AM Reporting Lab: [facility] [address] [phone] Performing Lab: [facility] [address] [phone] [facility] PANEL 5 CARBON DIOXIDE, TOTAL [MOLES/VOLU ME] IN SERUM OR PLASMA 29 mmol/L 22 - 07/28 Specimen Type: PLASMA Comment: Estimated Glomerular Filtration Rate (eGFR) calculated using the 2020 Chronic Kidney Disease-Epi demiology (CKD-EPI) Collaborati on creatinine equation; units of measure are mL/min/1.73 m2. Results are only valid for adults (>=18 years) whose serum creatinine is in a steady state. eGFR calculation s are not valid for patients with acute kidney injury and for patients on dialysis. Creatinine- based estimates of kidney function may also be inaccurate in patients with reduced creatinine generation due to decreased muscle mass (e.g., malnutritio n, severe hypoalbumin emia, sarcopenia, chronic neuromuscul ar disease, amputations , severe heart failure or liver disease) and in patients with increased creatinine generation due to increased muscle mass (e.g., muscle builders, anabolic steroids) or increased dietary intake. As drug clearance is proportiona l to total GFR and not GFR indexed to body surface area (BSA), in individuals with a BSA substantial ly different than 1.73 m2, drug dosing should be based on the reported eGFR value de-indexed from BSA by multiplying by the individual' s BSA and dividing by 1.73. CKD is diagnosed based on abnormaliti es of kidney structure or function, present for >3 months, with implication s for health and disease. CKD is classified and staged based on cause, eGFR and albuminuria (quantified as urine albumin to creatinine ratio). An eGFR >60 mL/min/1.73 m2 in the absence of increased urine albumin excretion or structural abnormaliti es does not represent CKD. eGFR CKD Interpretat ion (mL/min/1.7 3 m2) stage >=90 G1 Normal 60-89 G2 Mild decrease 45-59 G3A Mild to moderate decrease 30-44 G3B Moderate to severe decrease 15-29 G4 Severe decrease <15 G5 Kidney failure Ordering Provider: ANTONIA FRANCOIS Report Released Date/Time: Jul 28, 2024 11:58 AM Reporting Lab: [facility] [address] [phone] Performing Lab: [facility] [address] [phone] [facility] PANEL 5 CALCIUM [MASS/VOLUM E] IN SERUM OR PLASMA 9.4 mg/dL 8.4 - 10.2 07/28 Specimen Type: PLASMA Comment: Estimated Glomerular Filtration Rate (eGFR) calculated using the 2020 Chronic Kidney Disease-Epi demiology (CKD-EPI) Collaborati on creatinine equation; units of measure are mL/min/1.73 m2. Results are only valid for adults (>=18 years) whose serum creatinine is in a steady state. eGFR calculation s are not valid for patients with acute kidney injury and for patients on dialysis. Creatinine- based estimates of kidney function may also be inaccurate in patients with reduced creatinine generation due to decreased muscle mass (e.g., malnutritio n, severe hypoalbumin emia, sarcopenia, chronic neuromuscul ar disease, amputations , severe heart failure or liver disease) and in patients with increased creatinine generation due to increased muscle mass (e.g., muscle builders, anabolic steroids) or increased dietary intake. As drug clearance is proportiona l to total GFR and not GFR indexed to body surface area (BSA), in individuals with a BSA substantial ly different than 1.73 m2, drug dosing should be based on the reported eGFR value de-indexed from BSA by multiplying by the individual' s BSA and dividing by 1.73. CKD is diagnosed based on abnormaliti es of kidney structure or function, present for >3 months, with implication s for health and disease. CKD is classified and staged based on cause, eGFR and albuminuria (quantified as urine albumin to creatinine ratio). An eGFR >60 mL/min/1.73 m2 in the absence of increased urine albumin excretion or structural abnormaliti es does not represent CKD. eGFR CKD Interpretat ion (mL/min/1.7 3 m2) stage >=90 G1 Normal 60-89 G2 Mild decrease 45-59 G3A Mild to moderate decrease 30-44 G3B Moderate to severe decrease 15-29 G4 Severe decrease <15 G5 Kidney failure Ordering Provider: ANTONIA FRANCOIS Report Released Date/Time: Jul 28, 2024 11:58 AM Reporting Lab: [facility] [address] [phone] Performing Lab: [facility] [address] [phone] [facility] PANEL 5 PROTEIN [MASS/VOLUM E] IN SERUM OR PLASMA 7.0 g/dL 6.4 - 8.3 07/28 Specimen Type: PLASMA Comment: Estimated Glomerular Filtration Rate (eGFR) calculated using the 2020 Chronic Kidney Disease-Epi demiology (CKD-EPI) Collaborati on creatinine equation; units of measure are mL/min/1.73 m2. Results are only valid for adults (>=18 years) whose serum creatinine is in a steady state. eGFR calculation s are not valid for patients with acute kidney injury and for patients on dialysis. Creatinine- based estimates of kidney function may also be inaccurate in patients with reduced creatinine generation due to decreased muscle mass (e.g., malnutritio n, severe hypoalbumin emia, sarcopenia, chronic neuromuscul ar disease, amputations , severe heart failure or liver disease) and in patients with increased creatinine generation due to increased muscle mass (e.g., muscle builders, anabolic steroids) or increased dietary intake. As drug clearance is proportiona l to total GFR and not GFR indexed to body surface area (BSA), in individuals with a BSA substantial ly different than 1.73 m2, drug dosing should be based on the reported eGFR value de-indexed from BSA by multiplying by the individual' s BSA and dividing by 1.73. CKD is diagnosed based on abnormaliti es of kidney structure or function, present for >3 months, with implication s for health and disease. CKD is classified and staged based on cause, eGFR and albuminuria (quantified as urine albumin to creatinine ratio). An eGFR >60 mL/min/1.73 m2 in the absence of increased urine albumin excretion or structural abnormaliti es does not represent CKD. eGFR CKD Interpretat ion (mL/min/1.7 3 m2) stage >=90 G1 Normal 60-89 G2 Mild decrease 45-59 G3A Mild to moderate decrease 30-44 G3B Moderate to severe decrease 15-29 G4 Severe decrease <15 G5 Kidney failure Ordering Provider: ANTONIA FRANCOIS Report Released Date/Time: Jul 28, 2024 11:58 AM Reporting Lab: [facility] [address] [phone] Performing Lab: [facility] [address] [phone] [facility] PANEL 5 ALBUMIN [MASS/VOLUM E] IN SERUM OR PLASMA 4.3 g/dL 3.5 - 5.2 07/28 Specimen Type: PLASMA Comment: Estimated Glomerular Filtration Rate (eGFR) calculated using the 2020 Chronic Kidney Disease-Epi demiology (CKD-EPI) Collaborati on creatinine equation; units of measure are mL/min/1.73 m2. Results are only valid for adults (>=18 years) whose serum creatinine is in a steady state. eGFR calculation s are not valid for patients with acute kidney injury and for patients on dialysis. Creatinine- based estimates of kidney function may also be inaccurate in patients with reduced creatinine generation due to decreased muscle mass (e.g., malnutritio n, severe hypoalbumin emia, sarcopenia, chronic neuromuscul ar disease, amputations , severe heart failure or liver disease) and in patients with increased creatinine generation due to increased muscle mass (e.g., muscle builders, anabolic steroids) or increased dietary intake. As drug clearance is proportiona l to total GFR and not GFR indexed to body surface area (BSA), in individuals with a BSA substantial ly different than 1.73 m2, drug dosing should be based on the reported eGFR value de-indexed from BSA by multiplying by the individual' s BSA and dividing by 1.73. CKD is diagnosed based on abnormaliti es of kidney structure or function, present for >3 months, with implication s for health and disease. CKD is classified and staged based on cause, eGFR and albuminuria (quantified as urine albumin to creatinine ratio). An eGFR >60 mL/min/1.73 m2 in the absence of increased urine albumin excretion or structural abnormaliti es does not represent CKD. eGFR CKD Interpretat ion (mL/min/1.7 3 m2) stage >=90 G1 Normal 60-89 G2 Mild decrease 45-59 G3A Mild to moderate decrease 30-44 G3B Moderate to severe decrease 15-29 G4 Severe decrease <15 G5 Kidney failure Ordering Provider: ANTONIA FRANCOIS Report Released Date/Time: Jul 28, 2024 11:58 AM Reporting Lab: [facility] [address] [phone] Performing Lab: [facility] [address] [facility] [address] [facility] PANEL 5 BILIRUBIN.T OTAL [MASS/VOLUM E] IN SERUM OR PLASMA 1.1 mg/dL 0.2 - 1.2 07/28 Specimen Type: PLASMA Comment: Estimated Glomerular Filtration Rate (eGFR) calculated using the 2020 Chronic Kidney Disease-Epi demiology (CKD-EPI) Collaborati on creatinine equation; units of measure are mL/min/1.73 m2. Results are only valid for adults (>=18 years) whose serum creatinine is in a steady state. eGFR calculation s are not valid for patients with acute kidney injury and for patients on dialysis. Creatinine- based estimates of kidney function may also be inaccurate in patients with reduced creatinine generation due to decreased muscle mass (e.g., malnutritio n, severe hypoalbumin emia, sarcopenia, chronic neuromuscul ar disease, amputations , severe heart failure or liver disease) and in patients with increased creatinine generation due to increased muscle mass (e.g., muscle builders, anabolic steroids) or increased dietary intake. As drug clearance is proportiona l to total GFR and not GFR indexed to body surface area (BSA), in individuals with a BSA substantial ly different than 1.73 m2, drug dosing should be based on the reported eGFR value de-indexed from BSA by multiplying by the individual' s BSA and dividing by 1.73. CKD is diagnosed based on abnormaliti es of kidney structure or function, present for >3 months, with implication s for health and disease. CKD is classified and staged based on cause, eGFR and albuminuria (quantified as urine albumin to creatinine ratio). An eGFR >60 mL/min/1.73 m2 in the absence of increased urine albumin excretion or structural abnormaliti es does not represent CKD. eGFR CKD Interpretat ion (mL/min/1.7 3 m2) stage >=90 G1 Normal 60-89 G2 Mild decrease 45-59 G3A Mild to moderate decrease 30-44 G3B Moderate to severe decrease 15-29 G4 Severe decrease <15 G5 Kidney failure Ordering Provider: ANTONIA FRANCOIS Report Released Date/Time: Jul 28, 2024 11:58 AM Reporting Lab: [facility] [address] [facility] [address] Performing Lab: [facility] [address] [facility] [phone] [facility] PANEL 5 ASPARTATE AMINOTRANSF ERASE [ENZYMATIC ACTIVITY/VO LUME] IN SERUM OR PLASMA 50 U/L 5 - 34 07/28 H Specimen Type: PLASMA Comment: Estimated Glomerular Filtration Rate (eGFR) calculated using the 2020 Chronic Kidney Disease-Epi demiology (CKD-EPI) Collaborati on creatinine equation; units of measure are mL/min/1.73 m2. Results are only valid for adults (>=18 years) whose serum creatinine is in a steady state. eGFR calculation s are not valid for patients with acute kidney injury and for patients on dialysis. Creatinine- based estimates of kidney function may also be inaccurate in patients with reduced creatinine generation due to decreased muscle mass (e.g., malnutritio n, severe hypoalbumin emia, sarcopenia, chronic neuromuscul ar disease, amputations , severe heart failure or liver disease) and in patients with increased creatinine generation due to increased muscle mass (e.g., muscle builders, anabolic steroids) or increased dietary intake. As drug clearance is proportiona l to total GFR and not GFR indexed to body surface area (BSA), in individuals with a BSA substantial ly different than 1.73 m2, drug dosing should be based on the reported eGFR value de-indexed from BSA by multiplying by the individual' s BSA and dividing by 1.73. CKD is diagnosed based on abnormaliti es of kidney structure or function, present for >3 months, with implication s for health and disease. CKD is classified and staged based on cause, eGFR and albuminuria (quantified as urine albumin to creatinine ratio). An eGFR >60 mL/min/1.73 m2 in the absence of increased urine albumin excretion or structural abnormaliti es does not represent CKD. eGFR CKD Interpretat ion (mL/min/1.7 3 m2) stage >=90 G1 Normal 60-89 G2 Mild decrease 45-59 G3A Mild to moderate decrease 30-44 G3B Moderate to severe decrease 15-29 G4 Severe decrease <15 G5 Kidney failure Ordering Provider: ANTONIA FRANCOIS Report Released Date/Time: Jul 28, 2024 11:58 AM Reporting Lab: [facility] [address] [phone] Performing Lab: [facility] [address] [phone] [facility] PANEL 5 ALANINE AMINOTRANSF ERASE [ENZYMATIC ACTIVITY/VO LUME] IN SERUM OR PLASMA 106 U/L 0 - 55 07/28 H Specimen Type: PLASMA Comment: Estimated Glomerular Filtration Rate (eGFR) calculated using the 2020 Chronic Kidney Disease-Epi demiology (CKD-EPI) Collaborati on creatinine equation; units of measure are mL/min/1.73 m2. Results are only valid for adults (>=18 years) whose serum creatinine is in a steady state. eGFR calculation s are not valid for patients with acute kidney injury and for patients on dialysis. Creatinine- based estimates of kidney function may also be inaccurate in patients with reduced creatinine generation due to decreased muscle mass (e.g., malnutritio n, severe hypoalbumin emia, sarcopenia, chronic neuromuscul ar disease, amputations , severe heart failure or liver disease) and in patients with increased creatinine generation due to increased muscle mass (e.g., muscle builders, anabolic steroids) or increased dietary intake. As drug clearance is proportiona l to total GFR and not GFR indexed to body surface area (BSA), in individuals with a BSA substantial ly different than 1.73 m2, drug dosing should be based on the reported eGFR value de-indexed from BSA by multiplying by the individual' s BSA and dividing by 1.73. CKD is diagnosed based on abnormaliti es of kidney structure or function, present for >3 months, with implication s for health and disease. CKD is classified and staged based on cause, eGFR and albuminuria (quantified as urine albumin to creatinine ratio). An eGFR >60 mL/min/1.73 m2 in the absence of increased urine albumin excretion or structural abnormaliti es does not represent CKD. eGFR CKD Interpretat ion (mL/min/1.7 3 m2) stage >=90 G1 Normal 60-89 G2 Mild decrease 45-59 G3A Mild to moderate decrease 30-44 G3B Moderate to severe decrease 15-29 G4 Severe decrease <15 G5 Kidney failure Ordering Provider: ANTONIA FRANCOIS Report Released Date/Time: Jul 28, 2024 11:58 AM Reporting Lab: [place] [address] [address] Performing Lab: [address] [address] [facility] PANEL 5 ANION GAP 3 IN SERUM OR PLASMA 6 meq/L 3 - 19 07/28 Specimen Type: PLASMA Comment: Estimated Glomerular Filtration Rate (eGFR) calculated using the 2020 Chronic Kidney Disease-Epi demiology (CKD-EPI) Collaborati on creatinine equation; units of measure are mL/min/1.73 m2. Results are only valid for adults (>=18 years) whose serum creatinine is in a steady state. eGFR calculation s are not valid for patients with acute kidney injury and for patients on dialysis. Creatinine- based estimates of kidney function may also be inaccurate in patients with reduced creatinine generation due to decreased muscle mass (e.g., malnutritio n, severe hypoalbumin emia, sarcopenia, chronic neuromuscul ar disease, amputations , severe heart failure or liver disease) and in patients with increased creatinine generation due to increased muscle mass (e.g., muscle builders, anabolic steroids) or increased dietary intake. As drug clearance is proportiona l to total GFR and not GFR indexed to body surface area (BSA), in individuals with a BSA substantial ly different than 1.73 m2, drug dosing should be based on the reported eGFR value de-indexed from BSA by multiplying by the individual' s BSA and dividing by 1.73. CKD is diagnosed based on abnormaliti es of kidney structure or function, present for >3 months, with implication s for health and disease. CKD is classified and staged based on cause, eGFR and albuminuria (quantified as urine albumin to creatinine ratio). An eGFR >60 mL/min/1.73 m2 in the absence of increased urine albumin excretion or structural abnormaliti es does not represent CKD. eGFR CKD Interpretat ion (mL/min/1.7 3 m2) stage >=90 G1 Normal 60-89 G2 Mild decrease 45-59 G3A Mild to moderate decrease 30-44 G3B Moderate to severe decrease 15-29 G4 Severe decrease <15 G5 Kidney failure Ordering Provider: ANTONIA FRANCOIS Report Released Date/Time: Jul 28, 2024 11:58 AM Reporting Lab: [facility] [address] [address] Performing Lab: [facility] [place] [address] [address] [facility] PANEL 5 ALKALINE PHOSPHATASE [ENZYMATIC ACTIVITY/VO LUME] IN SERUM OR PLASMA 30 U/L 40 - 150 07/28 L Specimen Type: PLASMA Comment: Estimated Glomerular Filtration Rate (eGFR) calculated using the 2020 Chronic Kidney Disease-Epi demiology (CKD-EPI) Collaborati on creatinine equation; units of measure are mL/min/1.73 m2. Results are only valid for adults (>=18 years) whose serum creatinine is in a steady state. eGFR calculation s are not valid for patients with acute kidney injury and for patients on dialysis. Creatinine- based estimates of kidney function may also be inaccurate in patients with reduced creatinine generation due to decreased muscle mass (e.g., malnutritio n, severe hypoalbumin emia, sarcopenia, chronic neuromuscul ar disease, amputations , severe heart failure or liver disease) and in patients with increased creatinine generation due to increased muscle mass (e.g., muscle builders, anabolic steroids) or increased dietary intake. As drug clearance is proportiona l to total GFR and not GFR indexed to body surface area (BSA), in individuals with a BSA substantial ly different than 1.73 m2, drug dosing should be based on the reported eGFR value de-indexed from BSA by multiplying by the individual' s BSA and dividing by 1.73. CKD is diagnosed based on abnormaliti es of kidney structure or function, present for >3 months, with implication s for health and disease. CKD is classified and staged based on cause, eGFR and albuminuria (quantified as urine albumin to creatinine ratio). An eGFR >60 mL/min/1.73 m2 in the absence of increased urine albumin excretion or structural abnormaliti es does not represent CKD. eGFR CKD Interpretat ion (mL/min/1.7 3 m2) stage >=90 G1 Normal 60-89 G2 Mild decrease 45-59 G3A Mild to moderate decrease 30-44 G3B Moderate to severe decrease 15-29 G4 Severe decrease <15 G5 Kidney failure Ordering Provider: ANTONIA FRANCOIS Report Released Date/Time: Jul 28, 2024 11:58 AM Reporting Lab: [facility] [address] [address] Performing Lab: [facility] [address] [address] [facility] 5 GLOMERULAR FILTRATION RATE/1.73 SQ M.PREDICTED [VOLUME RATE/AREA] IN SERUM, PLASMA OR BLOOD BY CREATININE- BASED FORMULA (CKD-EPI 2020) 60 07/28 Specimen Type: PLASMA Comment: Estimated Glomerular Filtration Rate (eGFR) calculated using the 2020 Chronic Kidney Disease-Epi demiology (CKD-EPI) Collaborati on creatinine equation; units of measure are mL/min/1.73 m2. Results are only valid for adults (>=18 years) whose serum creatinine is in a steady state. eGFR calculation s are not valid for patients with acute kidney injury and for patients on dialysis. Creatinine- based estimates of kidney function may also be inaccurate in patients with reduced creatinine generation due to decreased muscle mass (e.g., malnutritio n, severe hypoalbumin emia, sarcopenia, chronic neuromuscul ar disease, amputations , severe heart failure or liver disease) and in patients with increased creatinine generation due to increased muscle mass (e.g., muscle builders, anabolic steroids) or increased dietary intake. As drug clearance is proportiona l to total GFR and not GFR indexed to body surface area (BSA), in individuals with a BSA substantial ly different than 1.73 m2, drug dosing should be based on the reported eGFR value de-indexed from BSA by multiplying by the individual' s BSA and dividing by 1.73. CKD is diagnosed based on abnormaliti es of kidney structure or function, present for >3 months, with implication s for health and disease. CKD is classified and staged based on cause, eGFR and albuminuria (quantified as urine albumin to creatinine ratio). An eGFR >60 mL/min/1.73 m2 in the absence of increased urine albumin excretion or structural abnormaliti es does not represent CKD. eGFR CKD Interpretat ion (mL/min/1.7 3 m2) stage >=90 G1 Normal 60-89 G2 Mild decrease 45-59 G3A Mild to moderate decrease 30-44 G3B Moderate to severe decrease 15-29 G4 Severe decrease <15 G5 Kidney failure Ordering Provider: ANTONIA FRANCOIS Report Released Date/Time: Jul 28, 2024 11:58 AM Reporting Lab: [facility] [address] [address] Performing Lab: [facility] [address] [address] [facility] TSH THYROTROPIN [UNITS/VOLU ME] IN SERUM OR PLASMA 2.0682 m[IU]/ mL 0.3500 - 4.9400 07/28 Specimen Type: PLASMA Comment: Estimated Glomerular Filtration Rate (eGFR) calculated using the 2020 Chronic Kidney Disease-Epi demiology (CKD-EPI) Collaborati on creatinine equation; units of measure are mL/min/1.73 m2. Results are only valid for adults (>=18 years) whose serum creatinine is in a steady state. eGFR calculation s are not valid for patients with acute kidney injury and for patients on dialysis. Creatinine- based estimates of kidney function may also be inaccurate in patients with reduced creatinine generation due to decreased muscle mass (e.g., malnutritio n, severe hypoalbumin emia, sarcopenia, chronic neuromuscul ar disease, amputations , severe heart failure or liver disease) and in patients with increased creatinine generation due to increased muscle mass (e.g., muscle builders, anabolic steroids) or increased dietary intake. As drug clearance is proportiona l to total GFR and not GFR indexed to body surface area (BSA), in individuals with a BSA substantial ly different than 1.73 m2, drug dosing should be based on the reported eGFR value de-indexed from BSA by multiplying by the individual' s BSA and dividing by 1.73. CKD is diagnosed based on abnormaliti es of kidney structure or function, present for >3 months, with implication s for health and disease. CKD is classified and staged based on cause, eGFR and albuminuria (quantified as urine albumin to creatinine ratio). An eGFR >60 mL/min/1.73 m2 in the absence of increased urine albumin excretion or structural abnormaliti es does not represent CKD. eGFR CKD Interpretat ion (mL/min/1.7 3 m2) stage >=90 G1 Normal 60-89 G2 Mild decrease 45-59 G3A Mild to moderate decrease 30-44 G3B Moderate to severe decrease 15-29 G4 Severe decrease <15 G5 Kidney failure Ordering Provider: ANTONIA FRANCOIS Report Released Date/Time: Jul 28, 2024 11:58 AM Reporting Lab: [place] [id number] Performing Lab: [place] [id number] [facility] CBC/PLT LEUKOCYTES [#/VOLUME] IN BLOOD BY AUTOMATED COUNT 6.7 10*3/u L 5.0 - 10.0 07/28 Specimen Type: BLOOD No comment entered. Ordering Provider: ANTONIA FRANCOIS Report Released Date/Time: Jul 28, 2024 11:58 AM Reporting Lab: [place] [id number] Performing Lab: [place] [id number] [facility] CBC/PLT ERYTHROCYTE S [#/VOLUME] IN BLOOD BY AUTOMATED COUNT 5.00 10*6/u L 4.6 - 6.2 07/28 Specimen Type: BLOOD No comment entered. Ordering Provider: ANTONIA FRANCOIS Report Released Date/Time: Jul 28, 2024 11:58 AM Reporting Lab: [place] [id number] Performing Lab: [address] CBC/PLT HEMOGLOBIN [MASS/VOLUM E] IN BLOOD 15.2 g/dL 14.0 - 18.0 07/28 Specimen Type: BLOOD No comment entered. Ordering Provider: ANTONIA FRANCOIS Report Released Date/Time: Jul 28, 2024 11:58 AM Reporting Lab: [place] [address] Performing Lab: [address] CBC/PLT HEMATOCRIT [VOLUME FRACTION] OF BLOOD BY AUTOMATED COUNT 44.7 42.0 - 52.0 07/28 Specimen Type: BLOOD No comment entered. Ordering Provider: ANTONIA FRANCOIS Report Released Date/Time: Jul 28, 2024 11:58 AM Reporting Lab: [place] [address] Performing Lab: [address] CBC/PLT MCV [ENTITIC VOLUME] BY AUTOMATED COUNT 89.4 fL 80.0 - 94.0 07/28 Specimen Type: BLOOD No comment entered. Ordering Provider: ANTONIA FRANCOIS Report Released Date/Time: Jul 28, 2024 11:58 AM Reporting Lab: [place] [id number] Performing Lab: [address] CBC/PLT MCH [ENTITIC MASS] BY AUTOMATED COUNT 30.4 pg 27.0 - 31.0 07/28 Specimen Type: BLOOD No comment entered. Ordering Provider: ANTONIA FRANCOIS Report Released Date/Time: Jul 28, 2024 11:58 AM Reporting Lab: [address] [address] Performing Lab: [address] [phone] [place] [address] CBC/PLT MCHC [MASS/VOLUM E] BY AUTOMATED COUNT 34.0 g/dL 32.0 - 36.0 07/28 Specimen Type: BLOOD No comment entered. Ordering Provider: ANTONIA FRANCOIS Report Released Date/Time: Jul 28, 2024 11:58 AM Reporting Lab: [address] [address] Performing Lab: [place] [id number] [facility] CBC/PLT PLATELETS [#/VOLUME] IN BLOOD 216 10*3/u L 150 - 450 07/28 Specimen Type: BLOOD No comment entered. Ordering Provider: ANTONIA FRANCOIS Report Released Date/Time: Jul 28, 2024 11:58 AM Reporting Lab: [place] [id number] Performing Lab: [place] [id number] [facility] CBC/PLT PLATELET MEAN VOLUME [ENTITIC VOLUME] IN BLOOD 10.0 fL 9.0 - 13.1 07/28 Specimen Type: BLOOD No comment entered. Ordering Provider: ANTONIA FRANCOIS Report Released Date/Time: Jul 28, 2024 11:58 AM Reporting Lab: [place] [id number] Performing Lab: [place] [id number] [facility] CBC/PLT ERYTHROCYTE DISTRIBUTIO N WIDTH [ENTITIC VOLUME] BY AUTOMATED COUNT 12.5 11.0 - 16.0 07/28 Specimen Type: BLOOD No comment entered. Ordering Provider: ANTONIA FRANCOIS Report Released Date/Time: Jul 28, 2024 11:58 AM Reporting Lab: [address] [address] Performing Lab: [place] [id number] [facility] CBC/PLT NUCLEATED ERYTHROCYTE S/100 ERYTHROCYTE S IN BLOOD 0.0 0.0 - 0.0 07/28 Specimen Type: BLOOD No comment entered. Ordering Provider: ANTONIA FRANCOIS Report Released Date/Time: Jul 28, 2024 11:58 AM Reporting Lab: [place] [address] [address] Performing Lab: [facility] [address] [phone] [facility] FERRITIN FERRITIN [MASS/VOLUM E] IN SERUM OR PLASMA 2074.0 ng/mL 21.8 - 274.7 07/28 H Specimen Type: PLASMA Comment: Estimated Glomerular Filtration Rate (eGFR) calculated using the 2020 Chronic Kidney Disease-Epi demiology (CKD-EPI) Collaborati on creatinine equation; units of measure are mL/min/1.73 m2. Results are only valid for adults (>=18 years) whose serum creatinine is in a steady state. eGFR calculation s are not valid for patients with acute kidney injury and for patients on dialysis. Creatinine- based estimates of kidney function may also be inaccurate in patients with reduced creatinine generation due to decreased muscle mass (e.g., malnutritio n, severe hypoalbumin emia, sarcopenia, chronic neuromuscul ar disease, amputations , severe heart failure or liver disease) and in patients with increased creatinine generation due to increased muscle mass (e.g., muscle builders, anabolic steroids) or increased dietary intake. As drug clearance is proportiona l to total GFR and not GFR indexed to body surface area (BSA), in individuals with a BSA substantial ly different than 1.73 m2, drug dosing should be based on the reported eGFR value de-indexed from BSA by multiplying by the individual' s BSA and dividing by 1.73. CKD is diagnosed based on abnormaliti es of kidney structure or function, present for >3 months, with implication s for health and disease. CKD is classified and staged based on cause, eGFR and albuminuria (quantified as urine albumin to creatinine ratio). An eGFR >60 mL/min/1.73 m2 in the absence of increased urine albumin excretion or structural abnormaliti es does not represent CKD. eGFR CKD Interpretat ion (mL/min/1.7 3 m2) stage >=90 G1 Normal 60-89 G2 Mild decrease 45-59 G3A Mild to moderate decrease 30-44 G3B Moderate to severe decrease 15-29 G4 Severe decrease <15 G5 Kidney failure Ordering Provider: ANTONIA FRANCOIS Report Released Date/Time: Jul 28, 2024 11:58 AM Reporting Lab: [address] [address] Performing Lab: [address] [address] [facility] IRON/TIBC IRON [MOLES/VOLU ME] IN SERUM OR PLASMA 205 ug/dL 65 - 175 07/28 H Specimen Type: PLASMA Comment: Estimated Glomerular Filtration Rate (eGFR) calculated using the 2020 Chronic Kidney Disease-Epi demiology (CKD-EPI) Collaborati on creatinine equation; units of measure are mL/min/1.73 m2. Results are only valid for adults (>=18 years) whose serum creatinine is in a steady state. eGFR calculation s are not valid for patients with acute kidney injury and for patients on dialysis. Creatinine- based estimates of kidney function may also be inaccurate in patients with reduced creatinine generation due to decreased muscle mass (e.g., malnutritio n, severe hypoalbumin emia, sarcopenia, chronic neuromuscul ar disease, amputations , severe heart failure or liver disease) and in patients with increased creatinine generation due to increased muscle mass (e.g., muscle builders, anabolic steroids) or increased dietary intake. As drug clearance is proportiona l to total GFR and not GFR indexed to body surface area (BSA), in individuals with a BSA substantial ly different than 1.73 m2, drug dosing should be based on the reported eGFR value de-indexed from BSA by multiplying by the individual' s BSA and dividing by 1.73. CKD is diagnosed based on abnormaliti es of kidney structure or function, present for >3 months, with implication s for health and disease. CKD is classified and staged based on cause, eGFR and albuminuria (quantified as urine albumin to creatinine ratio). An eGFR >60 mL/min/1.73 m2 in the absence of increased urine albumin excretion or structural abnormaliti es does not represent CKD. eGFR CKD Interpretat ion (mL/min/1.7 3 m2) stage >=90 G1 Normal 60-89 G2 Mild decrease 45-59 G3A Mild to moderate decrease 30-44 G3B Moderate to severe decrease 15-29 G4 Severe decrease <15 G5 Kidney failure Ordering Provider: ANTONIA FRANCOIS Report Released Date/Time: Jul 28, 2024 11:58 AM Reporting Lab: [facility] [address] [address] Performing Lab: [facility] [address] [address] [facility] IRON/TIBC IRON BINDING CAPACITY [MASS/VOLUM E] IN SERUM OR PLASMA 289 mg/dL 250 - 425 07/28 Specimen Type: PLASMA Comment: Estimated Glomerular Filtration Rate (eGFR) calculated using the 2020 Chronic Kidney Disease-Epi demiology (CKD-EPI) Collaborati on creatinine equation; units of measure are mL/min/1.73 m2. Results are only valid for adults (>=18 years) whose serum creatinine is in a steady state. eGFR calculation s are not valid for patients with acute kidney injury and for patients on dialysis. Creatinine- based estimates of kidney function may also be inaccurate in patients with reduced creatinine generation due to decreased muscle mass (e.g., malnutritio n, severe hypoalbumin emia, sarcopenia, chronic neuromuscul ar disease, amputations , severe heart failure or liver disease) and in patients with increased creatinine generation due to increased muscle mass (e.g., muscle builders, anabolic steroids) or increased dietary intake. As drug clearance is proportiona l to total GFR and not GFR indexed to body surface area (BSA), in individuals with a BSA substantial ly different than 1.73 m2, drug dosing should be based on the reported eGFR value de-indexed from BSA by multiplying by the individual' s BSA and dividing by 1.73. CKD is diagnosed based on abnormaliti es of kidney structure or function, present for >3 months, with implication s for health and disease. CKD is classified and staged based on cause, eGFR and albuminuria (quantified as urine albumin to creatinine ratio). An eGFR >60 mL/min/1.73 m2 in the absence of increased urine albumin excretion or structural abnormaliti es does not represent CKD. eGFR CKD Interpretat ion (mL/min/1.7 3 m2) stage >=90 G1 Normal 60-89 G2 Mild decrease 45-59 G3A Mild to moderate decrease 30-44 G3B Moderate to severe decrease 15-29 G4 Severe decrease <15 G5 Kidney failure Ordering Provider: ANTONIA FRANCOIS Report Released Date/Time: Jul 28, 2024 11:58 AM Reporting Lab: [place] [address] [phone] Performing Lab: [place] [place] [address] [address] [facility] IRON/TIBC IRON SATURATION [MOLAR FRACTION] IN SERUM OR PLASMA 71 20 - 50 07/28 H Specimen Type: PLASMA Comment: Estimated Glomerular Filtration Rate (eGFR) calculated using the 2020 Chronic Kidney Disease-Epi demiology (CKD-EPI) Collaborati on creatinine equation; units of measure are mL/min/1.73 m2. Results are only valid for adults (>=18 years) whose serum creatinine is in a steady state. eGFR calculation s are not valid for patients with acute kidney injury and for patients on dialysis. Creatinine- based estimates of kidney function may also be inaccurate in patients with reduced creatinine generation due to decreased muscle mass (e.g., malnutritio n, severe hypoalbumin emia, sarcopenia, chronic neuromuscul ar disease, amputations , severe heart failure or liver disease) and in patients with increased creatinine generation due to increased muscle mass (e.g., muscle builders, anabolic steroids) or increased dietary intake. As drug clearance is proportiona l to total GFR and not GFR indexed to body surface area (BSA), in individuals with a BSA substantial ly different than 1.73 m2, drug dosing should be based on the reported eGFR value de-indexed from BSA by multiplying by the individual' s BSA and dividing by 1.73. CKD is diagnosed based on abnormaliti es of kidney structure or function, present for >3 months, with implication s for health and disease. CKD is classified and staged based on cause, eGFR and albuminuria (quantified as urine albumin to creatinine ratio). An eGFR >60 mL/min/1.73 m2 in the absence of increased urine albumin excretion or structural abnormaliti es does not represent CKD. eGFR CKD Interpretat ion (mL/min/1.7 3 m2) stage >=90 G1 Normal 60-89 G2 Mild decrease 45-59 G3A Mild to moderate decrease 30-44 G3B Moderate to severe decrease 15-29 G4 Severe decrease <15 G5 Kidney failure Ordering Provider: ANTONIA FRANCOIS Report Released Date/Time: Jul 28, 2024 11:58 AM Reporting Lab: [address] [phone] Performing Lab: [address] [address] [facility] URIC ACID URATE [MASS/VOLUM E] IN SERUM OR PLASMA 8.7 mg/dL 3.5 - 7.2 07/30 H Specimen Type: PLASMA No comment entered. Ordering Provider: ANTONIA FRANCOIS Report Released Date/Time: Jul 31, 2023 08:14 AM Reporting Lab: [address] [address] Performing Lab: [address] [address] [facility] TSH THYROTROPIN [UNITS/VOLU ME] IN SERUM OR PLASMA 2.4738 m[IU]/ mL 0.3500 - 4.9400 07/30 Specimen Type: PLASMA No comment entered. Ordering Provider: ANTONIA FRANCOIS Report Released Date/Time: Jul 31, 2023 08:10 AM Reporting Lab: [address] [address] Performing Lab: [place] [facility] [address] [facility] [address] [facility] Vital Signs Combined list of inpatient and outpatient Vital Signs from Department of [facility] and [facility], ranging from 12 months to all on record, depending upon the facility. Vital Sign Value Date Comments Source SYSTOLIC BLOOD PRESSURE 128 07/28/2024 11:47:11 [facility] DIASTOLIC BLOOD PRESSURE 78 07/28/2024 11:47:11 [facility] PULSE OXIMETRY 99 07/28/2024 11:47:11 [facility] WEIGHT 246 07/28/2024 11:47:11 [facility] B[facility]I [facility] BMI 33 kg/m2 07/28/2024 11:47:11 [place] [facility] PAIN 6 07/28/2024 11:47:11 [facility]IGNESH[facility] BISI [facility] HEIGHT 72 07/28/2024 11:47:11 [facility] TEMPERATURE 96.4 07/28/2024 11:47:11 RUBEN FIGUEROA [facility] PULSE 65 07/28/2024 11:47:11 VIGNESHIN PRESLEY [facility] RESPIRATION 18 07/28/2024 11:47:11 RUBEN HENRY [facility] Encounters Combined list of: 1) Encounters from [facility] facilities going backup to the last 18 months, not all [place] inpatient encounters are included; 2) Encounters from the Department of [facility] facilities going backup to 280 months. Location Location Details Encounter Type Encounter Number Reason For Visit Attending Provider ADM Date DC Date Status Disposition Source [facility] Outpatient Encounter [id number] 05/13 [place] [facility] Outpatient Encounter [id number] 05/19 [place] [facility] Outpatient Encounter [id number] 07/30 [place] [facility] EST MOD 30 MIN [id number] Diagnos is: ICD-10- CM I10 Essenti al (primar y) hyperte brock FRANCOISSirena AURA A 07/30 [place] [facility] Outpatient Encounter [id number] 08/05 [place] [facility] HC PRO PHONE CALL 5-10 MIN [id number] Diagnos is: ICD-10- CM 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 Franco 08/05 [place] [facility] Outpatient Encounter [id number] 10/04 [place] [facility] Outpatient Encounter [id number] 07/28 [place] [facility] Outpatient Encounter [id number] 07/28 [place] [facility] Outpatient Encounter [id number] 07/28 [place] [facility] OFFICE O/P EST MOD 30 MIN [id number] Diagnos is: ICD-10- CM I10 Essenti al (primar y) hyperte brock FRANCOISSirena AURA A 07/28 [place] [facility] PH1 ASSMT&MGMT NQHP 5-10 [id number] Diagnos is: ICD-10- CM R79.9 Abnorma l finding of blood atmospheric chemist ry, unspeci MARTELL Asencio S 08/01 [place] [facility] Outpatient Encounter [id number] 08/10 [place] Outpatient Encounter [id number] 08/10 [place] Outpatient Encounter [id number] 08/25 [place] [facility] En[facility] [id number] 08/30 [place] [facility] Social History Combined list of available smoking, tobacco, and other social history from Department of Defense and Veterans Affairs facilities. Social History Type Response Date Comment Sourc e Tobacco [facility]24 [facility] History of tobacco [facility] OTHER [facility] 07/28/2024 [facility] History of tobacco use [facility]-TOBACCO NEVER USED 07/31/2023 [facility] of [facility]/15/2022 [facility] History of tobacco use [facility]-TOBACCO NEVER USED 07/31/2021 [facility] History of tobacco use UT-TOBACCO NEVER USED 06/27/2020 [facility] History of tobacco use UT-TOBACCO NEVER USED 03/23/2018 [facility] History of tobacco use V9 TOBACCO OFFERED 03/23/2014 [facility] History of tobacco use V9 LIFETIME NON-USER OF TOBACCO 04/08/2012 [facility] History of tobacco use V9 QUIT TOBACCO >7 YEARS AGO 01/08/2010 [facility] Plan of Care List of future care activities from Department of Veterans Affairs facilities. Additional future care activities may be listed in the Assessment and Plan section. Date/Time Care Activity Care Activity Detail Facili ty 11/09/2024 AMBULATORY - NONE AMBULATORY - NONE [facility]
--- OUTSIDE RECORDS SUMMARY | 2024-10-23 16:46 | XMS_ITS | Data Portability ---
Author Organization [facility] & [place] REBEL ADMIN Address [address] [place] [address] Care Team Providers Care Senior Director Insight Name Role Phone TEJAS PARK Primary Care Provider Assessment No assessment recorded. Plan of Treatment Reminders Order Date Submit Date Provider Last Modified By Organization Details Last Modified Time Details Appointments None record ed. Lab None record ed. Referral None record ed. Procedures None record ed. Surgeries None record ed. Imaging None record ed. Medication Orders None record ed. Patient TargetsNo targets recorded. Patient Instructions Encounter Date Encounter Id Patient Instructions Last Modified By Organization Details Last Modified Time 01/18/2024 [id number] Total time spent by SEWING INSPECTOR reviewing patient's chart, face to face with patient, counseling, answering all questions, concerns and documenting the encounter in the patient's EMR: 30 minutes [email or web address] Not available 01/18/2024 16:26:20 Reason for Referral None Reported. Procedures Surgical History Date Name Laterality Status Provider Name and Address Organization Details Recorded Time 4 Cerumen removal with microscope completed KIM WARREN NP [address] [facility], [place], [address], [facility] - [place] - [place] & [place] 01/18/2024 16:21:25 5 Other completed Chris WELCH - LPERBEL - [place] & [place] 09/29/2023 14:18:59 6 [facility] & [place] 09/29/2023 14:18:59 0 Other completed Chris WELCH - LPNT - [place] & [place] 09/29/2023 14:18:59 Imaging Results None recorded. Procedure Notes None recorded. Medical Equipment None Reported. Allergies Allergen ID Allergen Name Allergen Category Reaction Reaction Severity Criticality Documentation Date Start Date Code Code System Note Provider Name and Address Organization Details Recorded Time 458249 morphine medicatio n Not available Not available Not available 01/18/2024 7052 RxNorm Shirin Williamso n null, REBEKAH Johnson [facility] & [place] 4 16:00:03 426914 lisinopri l medicatio n Not available Not available Not available 01/18/2024 31959 RxNorm Shirin Williamso n null, [facility] & [place] 4 16:02:47 323401 meloxicam medicatio n Not available Not available Not available 01/18/2024 47961 RxNorm Shirin Williamso n null, REBEKAH [facility] & [place] 4 16:02:53 Medications Name Sig Start Date Stop Date Status Note LastModified by Organization Details LastModified Time cyclobenzap rine 10 mg tablet TAKE ONE TABLET BY MOUTH EVERY DAY AT BEDTIME NEEDED FOR muscle SPASMS MAY CAUSE DROWSINES S active Not Available Not Available No t Available azithromyci n 250 mg tablet TAKE 2 TABLETS BY MOUTH ON DAY 1, THEN TAKE 1 TABLET DAILY ON DAYS 2-5 01/17 completed Not Available Not Available Not Available prednisone 20 mg tablet TAKE ONE TABLET BY MOUTH ONCE DAILY --TAKE WITH FOOD-- 01/17 completed Not Available Not Available Not Available valacyclovi r 500 mg tablet TAKE FOUR TABLETS BY MOUTH TWICE DAILY active Not Available Not Available No t Available omeprazole 40 mg capsule,del ayed release TAKE ONE CAPSULE BY MOUTH EVERY DAY DIRECTED active Not Available Not Available No t Available benzonatate 100 mg capsule TAKE ONE CAPSULE BY MOUTH THREE TIMES DAILY NEEDED FOR COUGH -SWALLOW WHOLE. DO NOT CRUSH OR CHEW- active Not Available Not Available No t Available neomycin-po lymyxin-dex ameth 3.5 mg/mL-10,00 0 unit/mL-0.1 % eye drops INSTILL ONE DROP into THE affected eye 2 TO 4 times a DAY DIRECTED active Not Available Not Available No t Available losartan 25 mg tablet TAKE ONE TABLET BY MOUTH EVERY DAY active Not Available Not Available No t Available irbesartan 75 mg tablet TAKE ONE TABLET BY MOUTH EVERY DAY active Not Available Not Available No t Available diclofenac sodium 75 mg tablet,dariana yed release TAKE ONE TABLET BY MOUTH TWICE DAILY --TAKE WITH FOOD-- active Not Available Not Available No t Available metoprolol succinate ER 25 mg tablet,exte nded release 24 hr TAKE ONE TABLET BY MOUTH EVERY DAY active Not Available Not Available No t Available methylpredn isolone 4 mg tablets in a dose pack TAKE ACCORDING TO PACKAGE INSTRUCTI ONS --TAKE WITH FOOD-- -- FINISH ALL MEDICINE -- active Not Available Not Available No t Available albuterol sulfate HFA 90 mcg/actuati on aerosol inhaler INHALE 1 PUFF BY MOUTH FOUR TIMES DAILY active Not Available Not Available No t Available losartan 50 mg-hydrochl orothiazide 12.5 mg tablet TAKE ONE TABLET BY MOUTH EVERY MORNING active Not Available Not Available No t Available losartan 100 mg tablet TAKE ONE TABLET BY MOUTH EVERY DAY active Not Available Not Available No t Available fluticasone propionate 50 mcg/actuati on nasal spray,suspe nsion instill 1 SPRAY IN EACH NOSTRIL EVERY DAY active Not Available Not Available No t Available doxycycline hyclate 100 mg tablet TAKE ONE TABLET BY MOUTH TWICE DAILY FOR 10 DAYS -- FINISH ALL MEDICINE -- 01/17 completed Not Available Not Available Not Available ferrous sulfate 100 mg-folic acid 1 mg-B complex-vit C-docusate tablet Take by oral route. active Not Available Not Available No t Available iron active Not Available Not Availa ble Not Available fenofibrate nanocrystal lized 145 mg tablet TAKE ONE TABLET BY MOUTH EVERY DAY active Not Available Not Available No t Available FeroSul 325 mg (65 mg iron) tablet TAKE ONE TABLET BY MOUTH EVERY DAY active Not Available Not Available No t Available fenofibrate 120 mg tablet Take 1 tablet every day by oral route. active Not Available Not Available No t Available Vitals Date Recorded Body weight Body mass index (BMI) Body height Body temperature Oxygen saturation Oxygen saturation in Arterial blood by Pulse oximetry Heart rate Systolic And Diastolic Provider Name and Address Organization Details Last Updated DateTime 4 615849. 91 g 33.6 kg/m2 182.88 cm 98 [degF] 98 % 98 % 92 /min 132/88 mm[Hg] Chris WELCH - LPNT - [place] & [place] 4 14:23:28 Date Recorded Body height Provider Name an d Address Organization Details Last Updated DateTime 01/18/2024 182.88 cm Shirin Chinchilla [facility] & [place] 01/18/2024 15:57:32 Social History Question Answer Notes LastModified by Minteos Details LastModified Time Tobacco Smoking Status Never Smoker Chris Rosas [facility], [facility] & [place] 09/29/2023 14:18:54 Do You Have An Advance Directive? No Information not available 09/29/2023 Are You Blind Or Do You Have Difficulty Seeing? No [email or web address] Information not available 09/29/2023 Are You Passively Exposed To Smoke? No [email or web address] Information not available 09/29/2023 Sex: Male Functional Status Question Answer Note LastModified by Organizat ion Details LastModified Time Do you use any illicit or recreational drugs? No [email or web address] Information not available 09/29/2023 What is your level of alcohol consumption? Occasional [email or web address] Information not available 09/29/2023 What is your exercise level? Moderate [email or web address] Information not available 09/29/2023 Mental Status Question Answer Note LastModified by Organization D etails LastModified Time Do you feel stressed (tense, restless, nervous, or anxious, or unable to sleep at night)? [id number] [email or web address] Information not available 09/29/2023 Family History Nothing Reported. Medical History Condition Response Gout Y Arthritis Y Hypertension Y High Cholesterol Y Past Encounters Encounter ID Performer Location Encounter Start Date Encounter Closed Date Diagnosis/Indication Diagnosis SNOMED-CT Code Diagnosis ICD10 Code Diagnosis Note [id number] Anitha Villanueva MD [facility] General Surgery [facility] [place] [address] 09/29/2023 13:51:26 09/29/2023 14:44:28 Lipoma of skin and subcutaneous tissue of trunk 069568951 D17.1 patient has small and minimally symptomati c lipoma of the trunk and pilar cyst of the scalp. We discussed excision under anesthesia versus continued conservati ve management . At present the areas are minimally symptomati c and he prefers to manage them expectantl y. He will follow up with me if they enlarge or become symptomati c Pilar cyst of scalp 4011 31388 L72.11 [id number] KIM WARREN NP [facility] [address] [facility] [address] [place] [address] 01/18/2024 15:53:18 01/18/2024 16:17:33 Impacted cerumen in right ear 0156926236 263156 H61.21 Cerumen removed from right eac. Advised patient to use baby oil for cerumen management . Follow up in 6 months for regular cleaning. Dizziness 661307754 R42 kiara hallpike negative bilaterall y. printed out kelly daroff exercises handout for him to try at home however I do not believe that his dizziness is due to an inner ear issue. He gets regular annual hearing tests at the [facility] all have shown mild bilateral hearing loss. he will continue to follow up with his cardiologi st and PCP regarding this issue Health Concerns Section Related Observation LastModified by Organization Detai ls LastModified Time None Recorded Concern Status LastModified by Organization Details LastModified Time None Recorded Advance Directives Directive N: Payers Insurance Date Sequence Insurance Name Policy Number Policy Gonzalez Covered Member ID Gonzalez Member ID Guarantor Name 02/24/2024 1 [facility] [id number] Anabel Alfonso [id number] Anabel Crystalence 11/18/2023 1 [facility] ([place] [id number] Anabel Alfonso [id number] Anabel Alfonso Notes Date Note Type Note Provider Name and Address Organization Details Recorded Time 09/29/2023 text/html Patient presents due to a left chest wall mass. It has been present for some time, has enlarged somewhat in size. It occasionally is minimally painful and tender to palpation. He also has a cyst on his scalp that he just noticed. It is not bothersome Anitha Villanueva MD [address], [place], [address], [facility] - [place] & [place] 10/01/2023 12:13:15 01/18/2024 text/html 01/18/24 - 48 yea r old male in office for bilateral cerumen impaction. Patient says he usually gets his ears cleaned out but has not this year. Patient denies pain. Patient says he has a hard time hearing. Patient has been more dizzy as of lately. Patient has had more headaches as of lately but he attributes these things to his neck pain and possibly due to his cardio issues. he denies seeing the room spin when he gets dizzy, no n/v, chest pain, SOB, numbness, tingling or pain down the arm. KIM WARREN, ALIYAH [address], [place], [address], [facility] - [place] & [place] 01/18/2024 16:28:03
--- OUTSIDE RECORDS SUMMARY | 2024-10-23 16:46 | XMS_ITS | Data Portability ---
Author Organization REBEKAH - OG [facility] CLOSED Address [address] [facility] [address] [place] [address] Care Team Providers Care Knifeman Name Role Phone KAYLAOLI CORREA Primary Care Provider Assessment No assessment recorded. Plan of Treatment Reminders Order Date Submit Date Provider Last Modified By Organization Details Last Modified Time Details Appointments None recorded. Lab None recorded. Referral None recorded. Procedures None recorded. Surgeries None recorded. Imaging None recorded. Medication Orders omeprazole 40 mg capsule,del ayed release 2019 020 roseann [facility], [address] [place] [address] [place], [id number], 0 09:00:02 Patient TargetsNo targets recorded. Patient Instructions Encounter Date Encounter Id Patient Instructions Last Modified By Organization Details Last Modified Time 03/27/2020 [id number] 1: Refered to Dr Valerie Bermeo for GI consult- He has had a normal EGD but still has what sounds to be occult reflux. I will be interested see if he might have a hiatal hernia contributing to his symptoms as well. I would like Dr. Bermeo to give his assessment regarding these concerns 2: Bilateral cerumenectomy performed- Full risks, complications, and benefits of operative versus non-operative intervention have been thoroughly discussed. Understanding was expressed, informed consent given, and we will proceed with the discussed operative treatment plan. There were no questions for me at the end of the office visit. 3: RX- omeprazole 40 mg, take one pill once a day. I feel that time release 40 mg tablet will get better results than the 20 mg version. 4: F/u prn roseann Not available 03/27/2020 16:31:31 Reason for Referral None Reported. Results Created Date Observation Date Name Description Value Unit Range Abnormal Flag Note LastModifiedBy Organization Detail LastModifiedTime 03/28/20 20 08/26/2019 XR, cervi jazmine spine , 2 or 3 view No observ ation record ed. BARCODE Not Available 2019 11:53:22 03/28/20 20 11/25/2019 CT, neck, soft tissu e, w/ contr ast No observ ation record ed. BARCODE Not Available 2019 11:53:22 03/28/20 20 11/07/2019 US, thyro id No observ ation record ed. BARCODE Not Available 2019 11:53:22 03/28/2011/07/2019 FL, modif ied windyu m eduarda ow study No observ ation record ed. BARCODE Not Available 2019 11:53:22 Result Notes None recorded. Problems Name Problem SNOMED Code Status Onset Date Resolution Date Notes Provider Name and Address Organization Details Recorded Time Knee joint effusion 477323048 Active 2015 From Automated Load;Provi jacqueline: Leslie Gandara;St atus: Active Not Available [facility] 6 07:53:38 Pain in left knee Active 2015 From Automated Load;Provi jacqueline: Leslie Gandara;St atus: Active Not Available [facility] 6 07:53:38 Chronic gouty arthritis 81325244 Active 2015 From Automated Load;Provi jacqueline: Leslie Gandara;St atus: Active Not Available [facility] 6 07:53:38 Problem Notes None recorded. Procedures Surgical History Date Name Laterality Status Provider Name and Address Organization Details Recorded Time 0 Cerumen removal - Instruments, Bilateral completed [facility] 03/27/2020 15:55:35 6 procedure on shoulder completed [facility] 03/27/2020 15:16:50 6 Back Surgery completed [facility] 03/27/2020 15:17:01 8 [facility]/27[facility] 15:16:42 Imaging Results None recorded. Procedure Notes None recorded. Medical Equipment None Reported. Allergies Allergen ID Allergen Name Allergen Category Reaction Reaction Severity Criticality Documentation Date Start Date Code Code System Note Provider Name and Address Organization Details Recorded Time 447632 morphine sulfate medicatio n Not available Not available Not available 03/14/20162015 52434 RxNorm Comme nt: Creat ed By: Viky Gallegos; Creat ed Date: 2015 12:59 :42 PM; Not Available [facility] 6 02:54:37 Medications Name Sig Start Date Stop Date Status Note LastModified by Organization Details LastModified Time glmp (p) in ssls 03/27 completed Not Available Not Available Not Available clindamyci n HCl 300 mg capsule TAKE 1 CAPSULE BY MOUTH THREE TIMES DAILY FOR 2 WEEKS FOR INFECTIO N ADMINIST ER WTIH A LARGE GLASS OF WATER 03/27 completed Not Available Not Available Not Available valacyclov ir 1 gram tablet TAKE TWO TABLETS BY MOUTH EVERY TWELVE HOURS FOR ONE DAY -- FINISH ALL MEDICINE -- 03/27 completed Not Available Not Available Not Available prednisone 20 mg tablet TAKE 1 TABLET BY MOUTH TWICE DAILY FOR 5 DAYS 03/27 completed Not Available Not Available Not Available acyclovir 400 mg tablet TAKE 2 TABLETS BY MOUTH TWICE DAILY FOR 2 DAYS; THEN TAKE 1 TABLET TWICE DAILY FOR 4 DAYS. 03/27 completed Not Available Not Available Not Available allopurino l 100 mg tablet TAKE TWO TABLETS BY MOUTH EVERY DAY active Not Available Not Available No t Available omeprazole 40 mg capsule,de layed release TAKE ONE CAPSULE BY MOUTH EVERY DAY DIRECTED active Not Available Not Available No t Available Aleve 220 mg tablet Every eight hours active Duratio n: 1 day;Cam quency: q8h;Med ication Descrip tion: naproxe n; Route:o ral; refills :0; Quantit y:3 tablet Not Available Not Available Not Available buspirone 10 mg tablet TAKE 1 2 (ONE HALF) TABLET BY MOUTH AT BEDTIME FOR 8 DAYS THEN 1 2 (ONE HALF) TWICE DAILY 03/27 completed Not Available Not Available Not Available lisinopril 10 mg tablet TAKE ONE TABLET BY MOUTH EVERY DAY active Not Available Not Available No t Available omeprazole 20 mg capsule,de layed release TAKE ONE CAPSULE BY MOUTH TWICE DAILY active Not Available Not Available No t Available methylpred nisolone 4 mg tablets in a dose pack TAKE ARMAAN Ornelas TO PACKAGE INSTRUCT IONS 03/27 completed Not Available Not Available Not Available colchicine 0.6 mg tablet TAKE 2 TABLETS BY MOUTH AT THE FIRST SIGN OF FLARE FOLLOWED IN 1 HOUR WITH 1 TABLET (MAX 3 TABLETS ON DAY 1). THEN TAKE 1 TABLET TWICE DAILY 03/27 completed Not Available Not Available Not Available metoclopra mide 10 mg tablet TAKE ONE TABLET BY MOUTH BEFORE meals AND AT bedtime active Not Available Not Available No t Available Vitals Date Recorded Body weight Body mass index (BMI) Body height Body temperature Heart rate Systolic And Diastolic Provider Name and Address Organization Details Last Updated DateTime 0 653987. 91 g 33.6 kg/m2 182.88 cm 97.3 [degF] 66 /min 142/82 mm[Hg] [facility] 0 15:22:12 Social History None recorded. Functional Status Question Answer Note LastModified by Organizat ion Details LastModified Time What is your level of alcohol consumption? Occasional [email or web address] Information not available 03/27/2020 Mental Status None recorded. Family History Relationship Description Onset Age of this Age Resolved Age Notes LastModified by Organization Details LastModified Time Father Disorder of thyroid gland [email or web address] Not available 03/27 15:18:34 Father Heart disease [email or web address] Not available 03/27 15:18:53 Father Hypertensive disorder Not available 03/27 15:19:00 Father Acute stroke [email or web address] Not hilda ilable 03/27/2020 15:19:10 Father Diabetes mellitus [email or web address] Not available 03/27 15:19:26 Medical History Condition Response Hypertension Y Past Encounters Encounter ID Performer Location Encounter Start Date Encounter Closed Date Diagnosis/Indication Diagnosis SNOMED-CT Code Diagnosis ICD10 Code Diagnosis Note [id number] MD REBEKAH THORPE III [facility] [address] [place] [address] 03/27/2020 14:53:31 03/28/2020 09:34:01 Dysphagia 08293838 R13.10 Impacted c erumen of bilateral ears 7477972440 694095 H61.23 Feeling of lump in throat 552237252 F45.8 Deviated nasal septum 12 2214975 J34.2 Gastroesop hageal reflux disease without esophagitis 678724296 K21.9 Cough 73304369 R05 Clearing t hroat - hawking 253448460 R05 Hyperactiv e pharyngeal gag reflex 8225855475 58935 J39.2 Chest pain 92809359 R07. 9 Health Concerns Section Related Observation LastModified by Organization Detai ls LastModified Time None Recorded Concern Status LastModified by Organization Details LastModified Time None Recorded Advance Directives Directive None Recorded Payers Insurance Date Sequence Insurance Name Policy Number Policy Gonzalez Covered Member ID Gonzalez Member ID Guarantor Name 04/25/2020 1 [employer] MARLA BOTELLO [facility] [id number] M Anabel Alfonos [id number] Anabel lAfonso Notes Date Note Type Note Provider Name and Address Organization Details Recorded Time 03/27/2020 text/html Anabel comes in today for consultation at the request of Dr. Oli Garcia for an evaluation of dysphagia. He states that for about a year and a half he feels like he has a lump in his throat. It causes him to gag a lot. He has started to have a sharp pain in the midline of his neck/chest now. He denies it being painful to eat or drink. He does occasionally cause him to cough. He was take Allopurinol for his gout and that caused his throat to spasm. He states that he constantly clears his throat but when he gags nothing comes up. Anabel says that there is not a certain time of day that is worse for the gagging or chest pain. He did see Dr. De Santiago in May of 2018 and they stretched his esophagus. Additionally he also has been diagnosed with an elongated uvula. He is currently on omeprazole for reflux. Barium swallow showed a deviation of the esophagus to the left. CT neck and chest done at a later date did not show a deviation or any masses. JEIMY MCGOWAN III, MD [facility] [place], [address], [facility] 03/27/2020 16:32:55
[2024-10-23 16:48] VITALS: BP 133/77; PULSE 83; RESP 18; TEMP 37.3; O2SAT 99; BMI 30.4
--- NOTE | 2024-10-23 16:56 | ECG_ITS ---
APPROVED REPORT Exam: Resting ECG HR:85 bpm ECG Measurements Heart Rate 85 AXES AL 140 P 43 QRSd 105 QRS -42 QT 362 T 13 QTc 404 Conclusion SINUS RHYTHM LEFT AXIS DEVIATION [QRS AXIS < -30] PATTERN CONSISTENT WITH PULMONARY DISEASE ABNORMAL ECG Electronically signed by : JUANIS MARCANO, 10/25/2024 08:42:04
--- NOTE | 2024-10-23 16:57 | XR_ITS ---
PROCEDURE INFORMATION: Exam: XR Chest Exam date and time: 10/23/2024 5:05 PM Age: 49 years old Clinical indication: Shortness of breath; Additional info: Short of breath TECHNIQUE: Imaging protocol: Radiologic exam of the chest. Views: 1 view. COMPARISON: CR XR CERVICAL SPINE W FLEX/EXT 01/18/2024 2:58 PM FINDINGS: Lungs: Normal. Pleural spaces: Normal. Heart/Mediastinum: Normal. Bones/joints: No acute abnormality. IMPRESSION: No acute findings.
--- NOTE | 2024-10-23 17:10 | ED_ITS ---
Discharge Plan Disposition Patient Disposition: Home, Self-Care Condition: Good Prescriptions Prescriptions: No Action atorvastatin 80 mg tablet 80 mg PO DAILY ferrous sulfate 325 mg (65 mg iron) tablet,delayed release (DR/EC) 325 mg PO DAILY Qty: 90 3RF losartan-hydrochlorothiazide 50-12.5 mg tablet 1 tab PO QAM Qty: 90 3RF fenofibrate nanocrystallized 145 mg tablet 145 mg PO DAILY Qty: 90 3RF aspirin [Adult Low Dose Aspirin] 81 mg tablet,delayed release (DR/EC) 81 mg PO DAILY Qty: 30 5RF Zepbound 2.5 mg/0.5 mL pen injector 2.5 mg SQ WEEKLY Qty: 2.5 0RF Rx Instructions: for 4 weeks omeprazole 40 mg capsule,delayed release(DR/EC) 20 mg PO BID Referrals Follow up/Referrals: Lucy Javed APRN [Primary Care Provider, Family Practice] - See instructions Activity Restrictions/Add. Instructions Additional Instructions/Restrictions: Increase fluids and rest. Please see your PCP in follow-up to make sure that your kidney function returns to normal. If any symptoms recur please return to the ED. Clinical Impressions Clinical Impression: Acute kidney injury (nontraumatic), Headache Stand Alone Forms Stand Alone Forms: Work/School Release Instructions Patient Instructions: Acute Kidney Injury, DI for Headache, DI for Hypomagnesemia Print Language Print Language: Slovak Discharge ED Provider: Houston Gant Adult HPI <Josey Green (ED), CORPORATE PLANNING MANAGER - Last Filed: 10/23/24 19:36> General Chief complaint: Headache Stated complaint: VAUGHN,body aches,nausea Time Seen by Provider: 10/23/24 16:58 Mode of Arrival: Ambulatory Source of Information: Patient Description of Symptoms (Recalled from ER Triage Doc. by RN): pt c/o a VAUGHN, nausea, body aches and chills x2d. pt states his VAUGHN is 4/10 and throbbing in nature. pt reports taking 10mg of torodol PO this at 1000. pt states it helped but the VAUGHN is returning. History of Present Illness HPI narrative: 49-year-old male presents to the ED today for complaint of headache over the last 2 days, body aches, nausea, was. He says [place] has been on the boat [place] 2 days and will take something for his headache and it will improve but then will get worse again. Says he will feel better get up and do something and then will start feeling bad again. He says he did drink 4 drinks on the boat yesterday but felt like that was not enough to make him feel bad. He has no cough, no runny nose. No cold cough symptoms. He did have diarrhea yesterday morning but otherwise none today. No other symptoms at this time. Related Data Home Medications ?Medication ?Instructions ?Recorded ?Confirmed atorvastatin 80 mg tablet 80 mg PO DAILY 12/28/2302/19 omeprazole 40 mg capsule,delayed 20 mg PO BID 01/04/24 03/10/24 release Previous Rx's ?Medication ?Instructions ?Recorded fenofibrate nanocrystallized 145 145 mg PO DAILY #90 t abs 12/28/23 mg tablet ferrous sulfate 325 mg (65 mg 325 mg PO DAILY #90 tabs 12/28/23 iron) tablet,delayed release losartan 50 mg-hydrochlorothiazide 1 tab PO QAM #90 ta bs 12/28/23 12.5 mg tablet aspirin 81 mg tablet,delayed 81 mg PO DAILY #30 tabs 0 01/14/24 release (Adult Low Dose Aspirin) tirzepatide (weight loss) 2.5 2.5 mg (0.5 mL) SQ WEEKL Y #2.5 mL 03/10/24 mg/0.5 mL subcutaneous pen injector (Zepbound) Allergies Allergy/AdvReac Type Severity Reaction Status Date / Time morphine (MORPHINE) Allergy Mild DIZZINESS Verified 02/01/24 15:33 AND VOMITING allopurinol Allergy Dizziness Verified 02/01/24 15:33 lisinopril AdvReac Mild cough Verified 02/01/24 15:33 meloxicam (From Mobic) AdvReac Dry Eye, Verified 02/01/24 15:33 Headaches, Blurred Vision [facility] <Josey Green (ED), CORPORATE PLANNING MANAGER - Last Filed: 10/23/24 19:36> [facility] Disclaimer: The information contained in this section may have been updated after the patient was seen, as this information can be updated by other users. Medical History (Updated 10/23/24 @ 19:29 by Josey Green (ED), CORPORATE PLANNING MANAGER) Shoulder pain Foot pain Syncope Chest pain Trapezius muscle spasm Blurry vision Neck pain Abnormal findings on diagnostic imaging of heart and coronary circulation Dizziness Near syncope Sinusitis URI (upper respiratory infection) Acute middle ear effusion Excessive cerumen in both ear canals Gout Gastroenteritis Sinusitis Frontal headache Surgical History No significant past surgical history Family History Other No significant family history Social History (Updated 03/11/24 @ 15:30 by Lucy Javed APRN) Smoking Status: Never smoker second hand exposure: No alcohol intake: current alcohol intake frequency: holidays/special occasions only substance use type: denies use current occupational status: employed Travel in the last 8 weeks?: Inside the [place] household members: spouse and children housing: house current occupation: [employer] current occupational exposures/hazards: No caffeine: Yes Have you lived/traveled outside [place] in past 30 days?: No Contact w/someone who lives/traveled outside [place] past 30 days?: No Exposure to someone with infectious disease in past 14 days?: No Do you have a fever (greater than 100.4 F or 38 C)?: No Have you tested positive for COVID-19?: No Exposed to someone with COVID-19 in past 14 days?: No Do you have a sore throat?: No Do you have a cough?: No Do you have any weakness?: No Do you have any diarrhea?: No Are you experiencing any unusual bleeding?: No Do you have any muscle aches/pain?: Yes Do you have any abdominal pain?: No Are you experiencing loss of taste or smell?: No Other Medical History Have you received the Flu Vaccine for this season: No Have you received the Pneumonia Vaccine: No <Josey Green (ED), CORPORATE PLANNING MANAGER - Last Filed: 10/23/24 19:36> ROS Obtained: Yes Systems reviewed as appropriate & no additional complaints except as documented Constitutional Constitutional: Reports as per HPI Physical Exam <Josey Green (ED), CORPORATE PLANNING MANAGER - Last Filed: 10/23/24 19:36> General General appearance: alert Head Head exam: atraumatic and normocephalic Eye Eye exam: Present PERRL and EOMI ENT ENT exam: Present normal oropharynx and mucous membranes moist Neck Neck exam: Present normal inspection, full ROM and trachea midline Respiratory Respiratory exam: Present normal lung sounds bilaterally Cardiovascular Cardiovascular exam: Present regular rate, normal rhythm, normal heart sounds, +S1 and +S2 Abdominal Exam Abdominal exam: Present soft and normal bowel sounds Extremities Exam Extremities exam: Present full ROM and normal capillary refill Back Exam Back exam: Present normal inspection Neurological Exam Neurological exam: Present alert, oriented X3 and normal gait Skin Skin exam: Present warm, dry and intact Medical Decision Making <Josey Green (ED), CORPORATE PLANNING MANAGER - Last Filed: 10/23/24 19:36> Medical Records Screening: Per USPSTF and CDC recommendations, given the prevalence of disease in our region, it is our hospital?s policy to screen for HIV and viral Hepatitis for all patients aged 18 and over and those with ongoing risk factors. Boaz Inquiry Pt receiving controlled substance: No Boaz was queried for this patient: No Vital Signs: 10/23/24 16:48 10/23/24 19:32 10/23/24 20:26 Temperature 99.1 F 98.3 F Temperature Source Oral Oral Pulse Rate 65 66 Pulse Rate [Left] 83 Respiratory Rate 18 20 18 Blood Pressure 126/75 133/81 Blood Pressure [Right Arm] 133/77 Blood Pressure Mean [Right Arm] 95 Blood Pressure Source [Right Arm] Automatic Cuff Blood Pressure Position Sitting Blood Pressure Position [Right Arm] Sitting 02 Sat by Pulse Oximetry 99 98 Oxygen Delivery Method Room Air Room Air Room Air Lab Data Lab Results 10/23/24 17:10: WBC 8.5, RBC 4.43 L, Hgb 13.7 L, Hct 39.4 L, MCV 88.9, MCH 30.9, MCHC 34.8, RDW 12.8, Plt Count 160, MPV 10.1, Neut % (Auto) 83.1 H, Lymph % (Auto) 9.3 L, [place] % (Auto) 6.1, Eos % (Auto) 1.2, Baso % (Auto) 0.2, Neut # (Auto) 7.1, Lymph # (Auto) 0.8, [place] # (Auto) 0.5, Eos # (Auto) 0.1, Baso # (Auto) 0.0, Sodium 138, Potassium 3.6, Chloride 98, Carbon Dioxide 31 H, Anion Gap 12.6, BUN 24 H, Creatinine 1.40 H, Estimated Creat Clear 91, Estimated GFR 54 L, Est GFR ( Amer) 65, Glucose 117 H, Calcium 9.3, Magnesium 1.3 L, Total Bilirubin 1.2, AST 37, ALT 53, Alkaline Phosphatase 42, Total Creatine Kinase 113, Troponin I < 0.01, Total Protein 6.5, Albumin 4.2, Globulin 2.3, Albumin/Globulin Ratio 1.8, Lipase 193 10/23/24 17:10 10/23/24 17:10 Orders (Tests/Meds): ED MEDICATIONS Discontinued Medications Generic Name Dose Route Start Last Admin Trade Name Freq PRN Reason Stop Dose Admin Diphenhydramine HCl 25 mg 10/23/24 16:56 10/23/24 17:25 Diphenhydramine 50mg/Ml Vial IV 10/23/24 16:57 25 mg ONCE ONE Administration Sodium Chloride 1,000 mls @ 999 mls/hr 10/23/24 16:56 10/23/24 17:24 Sod Chlor 0.9% 1000ml Bag IV 10/23/24 17:56 999 mls/hr .Q1H1M ONE Administration Magnesium Sulfate 2 gm in 50 mls @ 50 mls/hr 10/23/24 18:46 10/23/24 18:59 Magnesium Sulfate 2gm/50ml Premix IV 10/23/24 19:45 50 mls/hr ONCE ONE Administration Ketorolac Tromethamine 30 mg 10/23/24 16:56 10/23/24 17:25 Ketorolac 30mg/Ml Vial IV 10/23/24 16:57 30 mg ONCE ONE Administration ORDERS Category Date Time Status Chest XR -- portable [XR chest portable] Stat Exams 10/23/24 16:57 Completed CBC w/Auto Diff [Complete Blood Count Auto Diff] Stat Lab 10/23/24 17:10 Completed CMP [Comprehensive Metabolic Panel] Stat Lab 10/23/24 17:10 Completed Creatine Kinase Stat Lab 10/23/24 17:10 Completed Lipase Stat Lab 10/23/24 17:10 Completed Magnesium Stat Lab 10/23/24 17:10 Completed Trop I [Troponin I] Stat Lab 10/23/24 17:10 Completed Medical Decision Narrative: patient is a 49-year-old male presenting to the emergency department for evaluation of headache for 2 days, body aches, nausea, cold, chills. Patient is hemodynamically stable and nontoxic-appearing upon arrival, afebrile. Differential diagnosis includes viral illness, dehydration, HANNY, migraine, patient mentioned meningitis but we did discuss this and patient has normal white count, headache that is improved by fluids and Toradol, normal mental status and no fevers. Workup will be conducted with hematologic labs, specific imaging. Initial inventions include crystalloid bolus, analgesics. Initial workup reviewed by me hematologic labs are remarkable for elevated renal function however renal function has been elevated back in February in the past. Patient also had a low magnesium which was replaced here in the ED. Imaging informally interpreted by me and remarkable for nothing acute. Please see radiology report for formal imaging read. Discussed with patient and lab report and likelihood of this being dehydration related. Also discussed with them their concerns of meningitis and the lack of altered mental status and lack of fever. Patient has normal labs with exception of his kidney function. Patient is safe for discharge home. Discussed with Dr. Gant who agreed with plan. <Houston Gant MD - Last Filed: 10/24/24 02:29> Vital Signs: 10/23/24 16:48 10/23/24 19:32 10/23/24 20:26 Temperature 99.1 F 98.3 F Temperature Source Oral Oral Pulse Rate 65 66 Pulse Rate [Left] 83 Respiratory Rate 18 20 18 Blood Pressure 126/75 133/81 Blood Pressure [Right Arm] 133/77 Blood Pressure Mean [Right Arm] 95 Blood Pressure Source [Right Arm] Automatic Cuff Blood Pressure Position Sitting Blood Pressure Position [Right Arm] Sitting 02 Sat by Pulse Oximetry 99 98 Oxygen Delivery Method Room Air Room Air Room Air Lab Data Lab Results 10/23/24 17:10: WBC 8.5, RBC 4.43 L, Hgb 13.7 L, Hct 39.4 L, MCV 88.9, MCH 30.9, MCHC 34.8, RDW 12.8, Plt Count 160, MPV 10.1, Neut % (Auto) 83.1 H, Lymph % (Auto) 9.3 L, [place] % (Auto) 6.1, Eos % (Auto) 1.2, Baso % (Auto) 0.2, Neut # (Auto) 7.1, Lymph # (Auto) 0.8, [place] # (Auto) 0.5, Eos # (Auto) 0.1, Baso # (Auto) 0.0, Sodium 138, Potassium 3.6, Chloride 98, Carbon Dioxide 31 H, Anion Gap 12.6, BUN 24 H, Creatinine 1.40 H, Estimated Creat Clear 91, Estimated GFR 54 L, Est GFR ( Amer) 65, Glucose 117 H, Calcium 9.3, Magnesium 1.3 L, Total Bilirubin 1.2, AST 37, ALT 53, Alkaline Phosphatase 42, Total Creatine Kinase 113, Troponin I < 0.01, Total Protein 6.5, Albumin 4.2, Globulin 2.3, Albumin/Globulin Ratio 1.8, Lipase 193 Orders (Tests/Meds): ED MEDICATIONS Discontinued Medications Generic Name Dose Route Start Last Admin Trade Name Freq PRN Reason Stop Dose Admin Diphenhydramine HCl 25 mg 10/23/24 16:56 10/23/24 17:25 Diphenhydramine 50mg/Ml Vial IV 10/23/24 16:57 25 mg ONCE ONE Administration Sodium Chloride 1,000 mls @ 999 mls/hr 10/23/24 16:56 10/23/24 17:24 Sod Chlor 0.9% 1000ml Bag IV 10/23/24 17:56 999 mls/hr .Q1H1M ONE Administration Magnesium Sulfate 2 gm in 50 mls @ 50 mls/hr 10/23/24 18:46 10/23/24 18:59 Magnesium Sulfate 2gm/50ml Premix IV 10/23/24 19:45 50 mls/hr ONCE ONE Administration Ketorolac Tromethamine 30 mg 10/23/24 16:56 10/23/24 17:25 Ketorolac 30mg/Ml Vial IV 10/23/24 16:57 30 mg ONCE ONE Administration ORDERS Category Date Time Status Chest XR -- portable [XR chest portable] Stat Exams 10/23/24 16:57 Completed CBC w/Auto Diff [Complete Blood Count Auto Diff] Stat Lab 10/23/24 17:10 Completed CMP [Comprehensive Metabolic Panel] Stat Lab 10/23/24 17:10 Completed Creatine Kinase Stat Lab 10/23/24 17:10 Completed Lipase Stat Lab 10/23/24 17:10 Completed Magnesium Stat Lab 10/23/24 17:10 Completed Trop I [Troponin I] Stat Lab 10/23/24 17:10 Completed Medical Decision Narrative: patient is a 49-year-old male presenting to the emergency department for evaluation of headache for 2 days, body aches, nausea, cold, chills. Patient is hemodynamically stable and nontoxic-appearing upon arrival, afebrile. Differential diagnosis includes viral illness, dehydration, HANNY, migraine, patient mentioned meningitis but we did discuss this and patient has normal white count, headache that is improved by fluids and Toradol, normal mental status and no fevers. Workup will be conducted with hematologic labs, specific imaging. Initial inventions include crystalloid bolus, analgesics. Initial workup reviewed by me hematologic labs are remarkable for elevated renal function however renal function has been elevated back in February in the past. Patient also had a low magnesium which was replaced here in the ED. Imaging informally interpreted by me and remarkable for nothing acute. Please see radiology report for formal imaging read. Discussed with patient and lab report and likelihood of this being dehydration related. Also discussed with them their concerns of meningitis and the lack of altered mental status and lack of fever. Patient has normal labs with exception of his kidney function. Patient is safe for discharge home. Discussed with Dr. Gant who agreed with plan. I was consulted by the MAE, and we discussed the complexity of the problems being addressed. I approve the treatment and management plan for this patient's care in the emergency department, thus performing a substantive portion of the medical decision making. Houston Gant MD Critical Care <Josey Green (ED), CORPORATE PLANNING MANAGER - Last Filed: 10/23/24 19:36> Critical Care Time Critical Care Time: No
[2024-10-23 17:24] LABS: Hematocrit 39.4 % (42.0-52.0); Hemoglobin 13.7 g/dL (14.1-18.0); Immature Granulocytes % 0.1 %; Mean Corpuscular HGB Conc 34.8 g/dL (31.8-35.4); Mean Corpuscular Hemoglobin 30.9 pg (27.0-31.2); Mean Corpuscular Volume 88.9 fl (80-94); Nucleated Red Blood Cells % 0 %; Platelet Count 160 K/mm3 (142-424); Red Blood Count 4.43 M/mm3 (4.60-6.20); Red Cell Distribution Width-SD 42.0 fL; White Blood Count 8.5 K/mm3 (4.8-10.8)
[2024-10-23] MEDS: 0.9 % SODIUM CHLORIDE 1000ML 1,000 ML 999 ML IV (17:24)
[2024-10-23] MEDS: KETOROLAC 30MG/ML VIAL 30 MG IV (17:25)
[2024-10-23 17:36] LABS: Alanine Aminotransferase 53 U/L (12-78); Albumin Level 4.2 g/dl (3.5-5.0); Albumin/Globulin Ratio 1.8 (1.1-1.8); Alkaline Phosphatase 42 U/L (38-126); Anion Gap 12.6 mEq/L (5-15); Aspartate Amino Transferase 37 U/L (17-59); Bilirubin,Total 1.2 mg/dl (0.2-1.3); Blood Urea Nitrogen 24 mg/dl (9-20); Calcium 9.3 mg/dl (8.4-10.2); Carbon Dioxide 31 mmol/L (22.0-30.0); Chloride 98 mmol/L (98-107); Creatine Kinase 113 U/L (55-170); Creatinine Clearance Estimated 91 mL/min (50-200); Creatinine,Serum 1.40 mg/dl (0.66-1.25); Estimated Glomerular Filt Rate 54 ml/min (>60); GFR (African American) 65 ML/MIN (>60); Globulin 2.3 g/dL (1.3-3.2); Glucose 117 mg/dl (74-100); Potassium 3.6 mmoL/L (3.5-5.1); Sodium 138 mmol/L (136-145); Total Protein,Serum 6.5 g/dl (6.3-8.2)
[2024-10-23 17:45] LABS: Lipase 193 U/L (23-300); Magnesium 1.3 mg/dl (1.6-2.3)
[2024-10-23 17:48] LABS: Troponin I < 0.01 ng/ml (0.00-0.034)
[2024-10-23] MEDS: MAGNESIUM SULFATE IN WATER 2 GM/50 ML PIGGYBACK IV (18:59)
[2024-10-23 19:32] VITALS: BP 126/75; PULSE 65; RESP 20; O2SAT 98
--- NOTE | 2024-10-23 19:33 | PC.NURSE ---
rounded on pt at this time. pt voices no needs. Magnesium infusing. call light in reach.
[2024-10-23 20:26] VITALS: BP 133/81; PULSE 66; RESP 18; TEMP 36.8; O2SAT 99
== END 2024-10-23 20:28 | disposition home or self-care (01) ==
PROVIDERS: Nurse Practitioner; Emergency Provider Student in an Organized Health Care Education/Training Program; PCP Nurse Practitioner Family
DX: R51.9 Headache, unspecified (principal); N17.9 Acute kidney failure, unspecified; R11.0 Nausea
CPT/HCPCS: 71045; 80053; 82550; 83690; 83735; 84484; 85025; 93005; 96361; 96365; 96375; 99285; J1200; J1885; J3475; J7030

== ENCOUNTER 2024-10-24 15:25 | Emergency (ER) | payer BC, SELFPAY ==
--- OUTSIDE RECORDS SUMMARY | 2024-10-23 11:45 | XMS_ITS | Continuity of Care Document ---
Author Name [facility] Organization [facility] Care Team Providers Care Broadcast Operations Engineer Name Role Phone [facility] Unavailable Unavailable Problems Combined list of problems from Department of Defense and Veterans Affairs facilities. It does not include entries that were removed or entered in error. Problem Status Onset Date Problem Type Date of Resolution Comments Source Ankle joint pain (SNOMED CT [id number]) Active Condition [place] [facility] Chronic Back Pain (ICD-9-CM 724.5) [facility] DJD of Lumbar Spine Active Condition [facility] N Essential hypertension Active Condition [facility] N Family History Active Condition Mar 202017 Entered By: REBA GEE Comment: [facility] 70[facility] Entered By: REBA GEE Comment: Dad age 73: CVA, mild , [facility] 2017 Entered By: REBA GEE Comment: Sibs: healthy [facility] N H/O: surgery Active Condition Mar 31, 2018 Entered By: REBA GEE Comment[facility] Entered By: REBA GEE Comment: LUMBAR SURGERY FUSION 2006 2017 Entered By: REBA GEE Comment: left shoulder surgery 1998 [facility] N Hyperlipidemia Active Condition [place] [facility] Knee pain Active Condition [facility] N Social and personal history finding Active Condition Mar 31, 2018 Entered By: REBA GEE Comment: : 3 children 2017 Entered By: REBA GEE Comment: Occupation: [facility] 2017 Entered By: REBA GEE Comment: Smoke: never 2017 Entered By: REBA GEE Comment: ETOH: occ 1-2 months [facility] Vitamin D deficiency Active Condition [facility] Simple obesity Inactive Condition 01/07/2013 [facility]-CD D [facility] Diagnosis: ICD-10-CM R79.9 Abnormal finding of blood chemistry, unspecified Active Diagnosis [facility] Diagnosis: ICD-10-CM I10 Essential (primary) hypertension Active Diagnosis [facility] Diagnosis: ICD-10-CM Z71.89 Other specified counseling Active Diagnosis [facility] Medications Combined list of outpatient medications from Department of Defense and [facility] facilities.Medications provided include 1) outpatient medications from the last 15 months, and 2) patient-reported medications. Medication Details Route Status Patient Instructions Prescription Expires Prescription Number Last Dispense Date Ordering Provider Order Date Order Qty Source ALLOPURINOL 100MG TAB TAKE ONE TABLET BY MOUTH DAILY FOR GOUT ORAL ACTIVE 07/31/2024 [id number] ALON FRANCOIS 2023 90 [place] [facility] CA 40MG TAB TAKE ONE TABLET BY MOUTH DAILY FOR CHOLESTE ROL -DO NOT DRINK GRAPEFRU IT JUICE WHILE ON THIS DRUG ORAL DISCONT INUED (EDIT) 07/31/2024 [id number] 4 ALON FRANCOIS 2023 90 [place] [facility] [place] AT[place] N CA 80MG TAB TAKE ONE TABLET BY MOUTH DAILY FOR CHOLESTE ROL -DO NOT DRINK GRAPEFRU IT JUICE WHILE ON THIS DRUG ORAL ACTIVE 07/14/2025 [id number] 5 ALON FRANCOIS 2024 90 [place] [facility] [place] ATORVASTATI N CA 80MG TAB TAKE ONE TABLET BY MOUTH DAILY FOR CHOLESTE ROL -DO NOT DRINK GRAPEFRU IT JUICE WHILE ON THIS DRUG ORAL DISCONT INUED 07/31/2024 [id number] 5 ALON FRANCOIS 2023 90 [place] [facility] COLCHICINE 0.6MG TAB TAKE 1 TABLET BY MOUTH DAILY FOR GOUT -MAX: 3 TABLETS/ 24HR ORAL 08/30/2023 [id number] 4 ALON FRANCOIS 2023 30 [place] [facility] DICLOFENAC NA 75MG TAB,EC TAKE ONE TABLET BY MOUTH TWICE A DAY FOR PAIN/INF LAMMATIO N ORAL DISCONT INUED BY PROVIDE R 07/29/2025 [id number] 5 AELSSANDROALON PALMER 2024 180 [place] [facility] EZETIMIBE 10MG TAB TAKE ONE TABLET BY MOUTH EVERY EVENING FOR CHOLESTE ROL ORAL ACTIVE 08/08/2025 [id number] 5 ALON FRANCOIS 2024 90 [place] [facility] FENOFIBRATE TAB TAKE BY MOUTH DAILY ORAL ACTIVE ALON FRANCOIS 2024 [place] [facility] HYDROCHLORO THIAZIDE 12.5MG/LOSA RTAN POTASSIUM 50MG TAB TAKE 1 TABLET BY MOUTH DAILY FOR BLOOD PRESSURE /HEART ORAL ACTIVE 07/14/2025 [id number] 5 ALON FRANCOIS 2024 90 [place] [facility] HYDROCHLORO THIAZIDE 12.5MG/LOSA RTAN POTASSIUM 50MG TAB TAKE 1 TABLET BY MOUTH DAILY FOR BLOOD PRESSURE /HEART ORAL DISCONT INUED 07/31/2024 [id number] 5 ALON FRANCOIS 2023 90 [place] [facility] OMEPRAZOLE 20MG CAP,EC TAKE TWO CAPSULES BY MOUTH ONCE A DAY 30 MINUTES BEFORE A MEAL FOR STOMACH -TAKE ON AN EMPTY STOMACH ORAL ACTIVE 07/29/2025 [id number] 5 ALESSANDROALON PALMER 2024 180 [place] [facility] OMEPRAZOLE 20MG CAP,EC TAKE TWO CAPSULES BY MOUTH ONCE A DAY 30 MINUTES BEFORE A MEAL FOR STOMACH -TAKE ON AN EMPTY STOMACH ORAL DISCONT INUED 07/31/2024 [id number] 5 ALON FRANCOIS 2023 180 [place] [facility] Allergies, Adverse Reactions, Alerts Combined list of allergies from Department of Defense and Veterans Affairs facilities. It does not include entries that were removed or entered in error. Substance Category Reaction Severity Reaction type Status Date Reported Comments Source MORPHINE Propensity to adverse reactions to drug (finding) Nausea and vomiting active 8 [facility] Immunizations Combined list of available immunizations from the Department of Defense and Veterans Affairs facilities. Immunization Series Date Given Administered By Site Reaction Lot Number CVX Code Drug Hand Bootmaker Status Comments Source COVID-19 (MODERNA), MRNA, LNP-S, [...] L INFORMATI ON - FROM OTHER REGISTRY, [facility] Results Combined list of recent chemistry, hematology and other laboratory results from Department of Defense and Veterans Affairs, ranging from 15 months to all on record, depending upon the facility. Order Name Results Value Reference Range Date Interpretation Specimen Comments Source CBC/PLT LEUKOCYTES [#/VOLUME] IN BLOOD BY AUTOMATED COUNT 6.7 10*3/u L 5.0 - 10.0 07/28 Specimen Type: BLOOD No comment entered. Ordering Provider: ANTONIA FRANCOIS Report Released Date/Time: Jul 28, 2024 11:58 AM Reporting Lab: [address] Performing Lab: [address] CBC/PLT ERYTHROCYTE S [#/VOLUME] IN BLOOD BY AUTOMATED COUNT 5.00 10*6/u L 4.6 - 6.2 07/28 Specimen Type: BLOOD No comment entered. Ordering Provider: ANTONIA FRANCOIS Report Released Date/Time: Jul 28, 2024 11:58 AM Reporting Lab: [place] [id number] Performing Lab: [place] [id number] [place] [address] CBC/PLT HEMOGLOBIN [MASS/VOLUM E] IN BLOOD 15.2 g/dL 14.0 - 18.0 07/28 Specimen Type: BLOOD No comment entered. Ordering Provider: ANTONIA FRANCOIS Report Released Date/Time: Jul 28, 2024 11:58 AM Reporting Lab: [place] [id number] Performing Lab: [place] [id number] [place] [address] CBC/PLT HEMATOCRIT [VOLUME FRACTION] OF BLOOD BY AUTOMATED COUNT 44.7 42.0 - 52.0 07/28 Specimen Type: BLOOD No comment entered. Ordering Provider: ANTONIA FRANCOIS Report Released Date/Time: Jul 28, 2024 11:58 AM Reporting Lab: [address] [address] Performing Lab: [address] [address] [facility] CBC/PLT MCV [ENTITIC VOLUME] BY AUTOMATED COUNT 89.4 fL 80.0 - 94.0 07/28 Specimen Type: BLOOD No comment entered. Ordering Provider: ANTONIA FRANCOIS Report Released Date/Time: Jul 28, 2024 11:58 AM Reporting Lab: [address] [address] Performing Lab: [address] [address] [facility] CBC/PLT MCH [ENTITIC MASS] BY AUTOMATED COUNT 30.4 pg 27.0 - 31.0 07/28 Specimen Type: BLOOD No comment entered. Ordering Provider: ANTONIA FRANCOIS Report Released Date/Time: Jul 28, 2024 11:58 AM Reporting Lab: [address] [address] Performing Lab: [place] [id number] [facility] CBC/PLT MCHC [MASS/VOLUM E] BY AUTOMATED COUNT 34.0 g/dL 32.0 - 36.0 07/28 Specimen Type: BLOOD No comment entered. Ordering Provider: ANTONIA FRANCOIS Report Released Date/Time: Jul 28, 2024 11:58 AM Reporting Lab: [address] [address] Performing Lab: [address] [address] [facility] CBC/PLT PLATELETS [#/VOLUME] IN BLOOD 216 10*3/u L 150 - 450 07/28 Specimen Type: BLOOD No comment entered. Ordering Provider: ANTONIA FRANCOIS Report Released Date/Time: Jul 28, 2024 11:58 AM Reporting Lab: [address] [address] Performing Lab: [place] [id number] CBC/PLT PLATELET MEAN VOLUME [ENTITIC VOLUME] IN BLOOD 10.0 fL 9.0 - 13.1 07/28 Specimen Type: BLOOD No comment entered. Ordering Provider: ANTONIA FRANCOIS Report Released Date/Time: Jul 28, 2024 11:58 AM Reporting Lab: [place] [address] Performing Lab: [address] CBC/PLT ERYTHROCYTE DISTRIBUTIO N WIDTH [ENTITIC VOLUME] BY AUTOMATED COUNT 12.5 11.0 - 16.0 07/28 Specimen Type: BLOOD No comment entered. Ordering Provider: ANTONIA FRANCOIS Report Released Date/Time: Jul 28, 2024 11:58 AM Reporting Lab: [place] [id number] Performing Lab: [address] CBC/PLT NUCLEATED ERYTHROCYTE S/100 ERYTHROCYTE S IN BLOOD 0.0 0.0 - 0.0 07/28 Specimen Type: BLOOD No comment entered. Ordering Provider: ANTONIA FRANCOIS Report Released Date/Time: Jul 28, 2024 11:58 AM Reporting Lab: [place] [id number] Performing Lab: [address] FERRITIN FERRITIN [MASS/VOLUM E] IN SERUM OR [...] 2024 11:58 AM Reporting Lab: [place] [address] [address] Performing Lab: [place] [address] [address] [facility] GLYCOHEMO GLOBIN HEMOGLOBIN A1C/HEMOGLO BIN.TOTAL IN BLOOD BY HPLC 5.5 4.4 - 5.6 07/28 Specimen Type: BLOOD Comment: Prediabetes : 5.7%-6.4% Diabetes: >= 6.5% [facility] guidelines for A1c interpretat ion: Glycemic control targets are based on Shared Decision Making between clinicians and patients. Criteria used to establish an A1c target recommendat ion can be found at https://www .ar.gov/kalyani lityandpati entsafety/ and include the use of [...] 9.27. Ref: https://ngs p.org/CAPda ta.asp. The in-house 12Society-Simplee D-100 analyzer has a historical CV <= 2%. Contact the laboratory for further performance characteris tics of this assay. Ordering Provider: ANTONIA FRANCOIS Report Released Date/Time: Jul 28, 2024 11:58 AM Reporting Lab: [facility] [address] [address] Performing Lab: [address] [address] [facility] IRON/TIBC IRON [MOLES/VOLU ME] IN SERUM [...] 2024 11:58 AM Reporting Lab: [place] [address] [address] Performing Lab: [place] [address] [address] [facility] IRON/TIBC IRON BINDING CAPACITY [MASS/VOLUM E] [...] 2024 11:58 AM Reporting Lab: [place] [address] [address] Performing Lab: [place] [address] [address] [facility] IRON/TIBC IRON SATURATION [MOLAR FRACTION] IN [...] 2024 11:58 AM Reporting Lab: [place] [address] [address] Performing Lab: [place] [address] [address] [facility] LIPID PROFILE CHOLESTEROL [MASS/VOLUM E] IN [...] 2024 11:58 AM Reporting Lab: [place] [address] [address] Performing Lab: [place] [address] [address] [facility] LIPID PROFILE TRIGLYCERID E [MASS/VOLUM E] [...] 2024 11:58 AM Reporting Lab: [place] [address] [address] Performing Lab: [place] [address] [address] [facility] LIPID PROFILE CHOLESTEROL IN HDL [MASS/VOLUM [...] 2024 11:58 AM Reporting Lab: [place] [address] [address] Performing Lab: [place] [address] [address] [facility] LIPID PROFILE CHOLESTEROL IN LDL [MASS/VOLUM [...] 2024 11:58 AM Reporting Lab: [place] [address] [address] Performing Lab: [place] [address] [address] [facility] PANEL 5 CREATININE [MASS/VOLUM E] IN [...] 28, 2024 11:58 AM Reporting Lab: [place] [facility] [address] [facility] [address] Performing Lab: [place] [facility] [address] [facility] [address] [facility] PANEL 5 UREA NITROGEN [MASS/VOLUM E] [...] 2024 11:58 AM Reporting Lab: [place] [facility] [address] [facility] [address] Performing Lab: [place] [facility] [address] [facility] [address] [facility] PANEL 5 GLUCOSE [MASS/VOLUM E] IN [...] Jul 28, 2024 11:58 AM Reporting Lab: [facility] [address] [address] Performing Lab: [address] [address] [facility] PANEL 5 SODIUM [MOLES/VOLU ME] IN [...] Jul 28, 2024 11:58 AM Reporting Lab: [address] [address] Performing Lab: [address] [address] [facility] PANEL 5 POTASSIUM [MOLES/VOLU ME] IN SERUM OR [...] 2024 11:58 AM Reporting Lab: [place] [address] [address] Performing Lab: [place] [address] [address] [facility] PANEL 5 CHLORIDE [MOLES/VOLU ME] IN [...] 2024 11:58 AM Reporting Lab: [place] [address] [address] Performing Lab: [place] [address] [address] [facility] PANEL 5 CARBON DIOXIDE, TOTAL [MOLES/VOLU ME] IN SERUM OR PLASMA 29 mmol/L - 07/28 Specimen Type: PLASMA Comment: Estimated [...] 2024 11:58 AM Reporting Lab: [place] [address] [address] Performing Lab: [place] [address] [address] [facility] PANEL 5 CALCIUM [MASS/VOLUM E] IN [...] 2024 11:58 AM Reporting Lab: [place] [address] [address] Performing Lab: [place] [address] [address] [facility] PANEL 5 PROTEIN [MASS/VOLUM E] IN [...] 2024 11:58 AM Reporting Lab: [place] [address] [address] Performing Lab: [place] [address] [address] [facility] PANEL 5 ALBUMIN [MASS/VOLUM E] IN [...] 2024 11:58 AM Reporting Lab: [place] [address] [address] Performing Lab: [place] [address] [address] [facility] PANEL 5 BILIRUBIN.T OTAL [MASS/VOLUM E] [...] 2024 11:58 AM Reporting Lab: [place] [address] [address] Performing Lab: [place] [address] [address] [facility] PANEL 5 ASPARTATE AMINOTRANSF ERASE [ENZYMATIC ACTIVITY/VO LUME] IN SERUM OR PLASMA 50 U/L 5 - 34 04/10 /2025 H Specimen Type: PLASMA Comment: Estimated Glomerular [...] 2024 11:58 AM Reporting Lab: [place] [id number] [facility] [address] Performing Lab: [place] [facility] [address] [facility] [address] [facility] PANEL 5 ALANINE AMINOTRANSF ERASE [ENZYMATIC [...] 2024 11:58 AM Reporting Lab: [place] [facility] [address] [facility] [address] Performing Lab: [place] [address] [address] [facility] PANEL 5 ANION GAP 3 IN [...] 2024 11:58 AM Reporting Lab: [place] [facility] [address] [facility] [address] Performing Lab: [place] [facility] [address] [facility] [address] [facility] PANEL 5 ALKALINE PHOSPHATASE [ENZYMATIC ACTIVITY/VO [...] 2024 11:58 AM Reporting Lab: [place] [facility] [address] [facility] [address] Performing Lab: [place] [facility] [address] [facility] [address] [facility] PANEL 5 GLOMERULAR FILTRATION RATE/1.73 SQ M.PREDICTED [VOLUME [...] 2024 11:58 AM Reporting Lab: [place] [address] [address] Performing Lab: [place] [address] [address] [facility] TSH THYROTROPIN [UNITS/VOLU ME] IN SERUM [...] 2024 11:58 AM Reporting Lab: [place] [address] [address] Performing Lab: [place] [address] [address] [facility] URIC ACID URATE [MASS/VOLUM E] IN [...] Jul 28, 2024 11:58 AM Reporting Lab: [address] [address] Performing Lab: [address] [address] [facility] URIC ACID URATE [MASS/VOLUM E] IN SERUM OR PLASMA 8.7 mg/dL 3.5 - 7.2 07/30 H Specimen Type: PLASMA No comment entered. Ordering Provider: ANTONIA FRANCOIS Report Released Date/Time: Jul 31, 2023 08:14 AM Reporting Lab: [address] [address] Performing Lab: [address] [address] [facility] TSH THYROTROPIN [UNITS/VOLU ME] IN SERUM OR PLASMA 2.4738 m[IU]/ mL 0.3500 - 4.9400 07/30 Specimen Type: PLASMA No comment entered. Ordering Provider: ANTONIA FRANCOIS Report Released Date/Time: Jul 31, 2023 08:10 AM Reporting Lab: [address] [address] Performing Lab: [place] [facility] [address] [facility] [address] [facility] Vital Signs Combined list of inpatient and outpatient Vital Signs from Department of [facility] and [facility], ranging from 12 months to all on record, depending upon the facility. Vital Sign Value Date Comments Source SYSTOLIC BLOOD PRESSURE 128 07/28/2024 11:47:11 [facility] DIASTOLIC BLOOD PRESSURE 78 07/28/2024 11:47:11 [facility] PULSE OXIMETRY 99 07/28/2024 11:47:11 [facility] WEIGHT 246 07/28/2024 11:47:11 [facility] BMI 33 kg/m2 07/28/2024 11:47:11 [place] [facility] PAIN 6 07/28/2024 11:47:11 [facility]IGNESHIN BISI [facility] HEIGHT 72 07/28/2024 11:47:11 [facility] TEMPERATURE 96.4 07/28/2024 11:47:11 RUBEN FIGUEROA [facility] PULSE 65 07/28/2024 11:47:11 [facility]IGNESHIN PRESLEY [facility] RESPIRATION 18 07/28/2024 11:47:11 RUBNE HENRY [facility] Encounters Combined list of: 1) Encounters from Department of [facility] facilities going backup to the last 18 months, not all [place] inpatient encounters are included; 2) Encounters from the Department of [facility] facilities going backup to 280 months. Location Location Details Encounter Type Encounter Number Reason For Visit Attending Provider ADM Date DC Date Status Disposition Source [facility] Outpatient Encounter [id number] 05/13 [place] [facility] En[facility] [id number] 05/19 [place] [facility] Outpatient Encounter [id number] 07/30 [place] [facility] EST MOD 30 MIN [id number] Diagnos is: ICD-10- CM I10 Essenti al (primar y) hyperte brock FRANCOISSirena AURA A 07/30 [place] [facility] Outpatient Encounter [id number] 08/05 [place] [facility] HC PRO PHONE CALL 5-10 MIN [id number] Diagnos is: ICD-10- CM Z71.89 Other specifi ed agency legal counsel PRADEEP Franco 08/05 [place] [facility] Outpatient Encounter [id number] 10/04 [place] [facility] Outpatient Encounter [id number] 07/28 [place] [facility] Outpatient Encounter [id number] 07/28 [place] [facility] Outpatient Encounter [id number] 07/28 [place] [facility] OFFICE O/P EST MOD 30 MIN [id number] Diagnos is: ICD-10- CM I10 Essenti al (primar y) hyperte brock FRANCOISSirena AURA A 07/28 [place] [facility] PH1 ASSMT&MGMT NQHP 5-10 [id number] Diagnos is: ICD-10- CM R79.9 Abnorma l finding of blood development chemist ry, unspeci MARTELL Asencio S 08/01 [place] [facility] Outpatient Encounter [id number] 08/10 [place] Outpatient Encounter [id number] 08/10 [place] Outpatient Encounter [id number] 08/25 [place] [facility] En[facility] [id number] 08/30 [place] [facility] Social History Combined list of available smoking, tobacco, and other social history from Department of Defense and Veterans Affairs facilities. Social History Type Response Date Comment Sourc e Tobacco smoking status [facility] 07/28/2024 [facility] History of tobacco [facility] OTHER TYPE 07/28/2024 [facility] [place] of tobacco use [place] USED 07/31/2023 [facility] History of tobacco use [facility] 07/15/2022 [facility] History of tobacco use [place] NEVER USED 07/31/2021 [facility] History of tobacco use [place] USED 06/27/2020 [facility] History of tobacco use [place] USED 03/23/2018 [facility] History of tobacco use V9 TOBACCO OFFERED 03/23/2014 [facility] History of tobacco use V9 LIFETIME NON-USER OF TOBACCO 04/08/2012 [facility] History of tobacco use V9 QUIT TOBACCO >7 YEARS AGO 01/08/2010 [facility] Plan of Care List of future care activities from Department of Veterans Affairs facilities. Additional future care activities may be listed in the Assessment and Plan section. Date/Time Care Activity Care Activity Detail Facili ty 11/09/2024 AMBULATORY - NONE AMBULATORY - NONE [facility]
[2024-10-24] VITALS (9 sets, daily range): BP systolic 99–134; BP diastolic 56–71; PULSE 69–90; RESP 14–18; TEMP 37.3–38.5; O2SAT 91–98; BMI 30.2
--- NOTE | 2024-10-24 15:55 | PC.NURSE ---
DR WARNER AT BEDSIDE
[2024-10-24 16:05] LABS: Coronavirus 19, PCR Not Detected (NotDetected); Influenza A, PCR Not Detected (NotDetected); Influenza B, PCR Not Detected (NotDetected)
--- NOTE | 2024-10-24 16:10 | HMH.EDGENADL ---
Discharge Plan Disposition Patient Disposition: Home, Self-Care Prescriptions Prescriptions: New ondansetron 4 mg tablet,disintegrating 4 mg PO Q6H PRN (Reason: nausea and vomiting) Qty: 16 0RF No Action atorvastatin 80 mg tablet 80 mg PO DAILY losartan-hydrochlorothiazide 50-12.5 mg tablet 1 tab PO QAM Qty: 90 3RF fenofibrate nanocrystallized 145 mg tablet 145 mg PO DAILY Qty: 90 3RF aspirin [Adult Low Dose Aspirin] 81 mg tablet,delayed release (DR/EC) 81 mg PO DAILY Qty: 30 5RF omeprazole 40 mg capsule,delayed release(DR/EC) 20 mg PO BID Referrals Follow up/Referrals: Lucy Javed APRN [Primary Care Provider, Family Practice] - See instructions Activity Restrictions/Add. Instructions Additional Instructions/Restrictions: You are being prescribed Zofran to help with nausea and vomiting. Take this as prescribed. Continue to hydrate well by drinking plenty of water, sugar-free Gatorade or Pedialyte. I also encourage you to take Tylenol, and Toradol or ibuprofen for headaches and fevers. Follow-up with your primary care physician if symptoms do not improve. You will likely be symptomatic over the next few days but should improve after this. If you develop any new or worsening symptoms, or if you become concerned for your health for any reason, return to the emergency department for evaluation Clinical Impressions Clinical Impression: Headache, Nausea, Diarrhea Print Language Print Language: [place] Citizen Discharge ED Provider: Houston Gant Adult HPI General Chief complaint: Headache Stated complaint: Body Aches; Cold; Nausea Time Seen by Provider: 10/24/24 15:55 Mode of Arrival: Ambulatory Source of Information: Patient Limitations: No Limitations History of Present Illness HPI narrative: Anabel Alfonso is a 49y male with a history of gout who presents to the emergency department for complaints of a headache, nausea and diarrhea. Patient states that on Thursday, [place] began to feel ill. He describes a headache that runs from his frontal region down his neck. He also reports chills as well as some nausea. He presented to the emergency department yesterday for these complaints and was noted to have low magnesium and a mild HANNY and received IV fluids and was discharged. He states that his symptoms have continued and now he is having diarrhea. He took Toradol and Tylenol today without significant relief of his symptoms. He denies any chest pain, vomiting and is mainly concerned about the headache and nausea at this time. Related Data Home Medications ?Medication ?Instructions ?Recorded ?Confirmed atorvastatin 80 mg tablet 80 mg PO DAILY 12/28/23 10/24/24 omeprazole 40 mg capsule,delayed 20 mg PO BID 01/04/24 10/24/24 release Previous Rx's ?Medication ?Instructions ?Recorded fenofibrate nanocrystallized 145 145 mg PO DAILY #90 tabs 12/28/23 mg tablet losartan 50 mg-hydrochlorothiazide 1 tab PO QAM #90 tabs 12/28/23 12.5 mg tablet aspirin 81 mg tablet,delayed 81 mg PO DAILY #30 tabs 01/14/24 release (Adult Low Dose Aspirin) ondansetron 4 mg disintegrating 4 mg PO Q6H PRN nausea and 10/24/24 tablet vomiting #16 tabs Allergies Allergy/AdvReac Type Severity Reaction Status Date / Time morphine (MORPHINE) Allergy Mild DIZZINESS Verified 10/24/24 16:07 AND VOMITING allopurinol Allergy Dizziness Verified 10/24/24 16:07 lisinopril AdvReac Mild cough Verified 10/24/24 16:07 meloxicam (From Mobic) AdvReac Dry Eye, Verified 10/24/24 16:07 Headaches, Blurred Vision [facility] Disclaimer: The information contained in this section may have been updated after the patient was seen, as this information can be updated by other users. Medical History (Updated 10/24/24 @ 18:24 by Houston Gant MD) Shoulder pain Foot pain Syncope Chest pain Trapezius muscle spasm Blurry vision Neck pain Abnormal findings on diagnostic imaging of heart and coronary circulation Dizziness Near syncope Sinusitis URI (upper respiratory infection) Acute middle ear effusion Excessive cerumen in both ear canals Gout Gastroenteritis Sinusitis Frontal headache Surgical History No significant past surgical history Family History Other No significant family history Social History (Updated 03/11/24 @ 15:30 by Lucy Javed APRN) Smoking Status: Never smoker second hand exposure: No alcohol intake: current alcohol intake frequency: holidays/special occasions only substance use type: denies use current occupational status: employed Travel in the last 8 weeks?: Inside the [place] household members: spouse and children housing: house current occupation: [employer] current occupational exposures/hazards: No caffeine: Yes Have you lived/traveled outside [place] in past 30 days?: No Contact w/someone who lives/traveled outside US past 30 days?: No Exposure to someone with infectious disease in past 14 days?: No Do you have a fever (greater than 100.4 F or 38 C)?: No Have you tested positive for COVID-19?: No Exposed to someone with COVID-19 in past 14 days?: No Do you have a sore throat?: No Do you have a cough?: No Do you have any weakness?: No Do you have any diarrhea?: No Are you experiencing any unusual bleeding?: No Do you have any muscle aches/pain?: No Do you have any abdominal pain?: No Are you experiencing loss of taste or smell?: No Other Medical History Have you received the Flu Vaccine for this season: No Have you received the Pneumonia Vaccine: No ROS Obtained: Yes Systems reviewed as appropriate & no additional complaints except as documented Physical Exam General General appearance: alert and in no apparent distress Head Head exam: atraumatic Eye Eye exam: Present normal appearance ENT ENT exam: Present normal external ear exam Neck Neck exam: Present full ROM and other (Full range of motion of the neck); Absent tenderness or meningismus Chest Chest inspection: Present symmetric chest wall rise Respiratory Respiratory exam: Present normal lung sounds bilaterally; Absent respiratory distress Cardiovascular Cardiovascular exam: Present regular rate and normal rhythm Abdominal Exam Abdominal exam: Absent distention exam: Present deferred Extremities Exam Extremities exam: Present normal inspection Back Exam Back exam: Present normal inspection Neurological Exam Neurological exam: Present alert and oriented X3 Psychiatric Psychiatric exam: Present normal affect Skin Skin exam: Present warm and dry Medical Decision Making Medical Records Screening: Per USPSTF and CDC recommendations, given the prevalence of disease in our region, it is our hospital?s policy to screen for HIV and viral Hepatitis for all patients aged 18 and over and those with ongoing risk factors. [place] Inquiry Pt receiving controlled substance: No Vital Signs: 10/24/24 15:50 10/24/24 16:36 10/24/24 16:45 Temperature 101.3 F H Temperature Source Oral Pulse Rate 87 81 Pulse Rate [Radial] 90 Respiratory Rate 18 Blood Pressure 122/70 111/64 Blood Pressure [Right Arm] 134/65 Blood Pressure Mean [Right Arm] 88 Blood Pressure Source [Right Arm] Automatic Cuff Blood Pressure Position [Right Arm] Sitting 02 Sat by Pulse Oximetry 98 97 95 Oxygen Delivery Method Room Air 10/24/24 17:00 10/24/24 17:30 10/24/24 17:45 Temperature Temperature Source Pulse Rate 71 78 69 Pulse Rate [Radial] Respiratory Rate Blood Pressure 99/56 L 118/65 108/62 L Blood Pressure [Right Arm] Blood Pressure Mean [Right Arm] Blood Pressure Source [Right Arm] Blood Pressure Position [Right Arm] 02 Sat by Pulse Oximetry 94 L 94 L 94 L Oxygen Delivery Method 10/24/24 18:00 10/24/24 18:15 10/24/24 18:32 Temperature 99.2 F Temperature Source Pulse Rate 69 74 77 Pulse Rate [Radial] Respiratory Rate 14 Blood Pressure 112/70 116/71 116/71 Blood Pressure [Right Arm] Blood Pressure Mean [Right Arm] Blood Pressure Source [Right Arm] Blood Pressure Position [Right Arm] 02 Sat by Pulse Oximetry 93 L 91 L Oxygen Delivery Method Room Air Lab Data Lab Results 10/24/24 15:59: SARS-CoV-2 (PCR) Not detected, Influenza A Untype (PCR) Not detected, Influenza Type B (PCR) Not detected 10/24/24 16:22: WBC 9.4, RBC 4.13 L, Hgb 12.7 L, Hct 36.3 L, MCV 87.9, MCH 30.8, MCHC 35.0, RDW 12.5, Plt Count 150, MPV 10.0, Neut % (Auto) 84.3 H, Lymph % (Auto) 7.0 L, Leon % (Auto) 7.4, Eos % (Auto) 1.0, Baso % (Auto) 0.1, Neut # (Auto) 8.0 H, Lymph # (Auto) 0.7, Leon # (Auto) 0.7, Eos # (Auto) 0.1, Baso # (Auto) 0.0, Sodium 137, Potassium 3.4 L, Chloride 99, Carbon Dioxide 28, Anion Gap 13.4, BUN 18, Creatinine 1.20, Estimated Creat Clear 105, Estimated GFR 64, Est GFR ( Amer) 78, Glucose 99, Calcium 7.7 L, Magnesium 1.3 L, Total Bilirubin 1.3, AST 35, ALT 41, Alkaline Phosphatase 38, Total Protein 6.0 L, Albumin 3.9, Globulin 2.1, Albumin/Globulin Ratio 1.9 H 10/24/24 16:22 10/24/24 16:22 Orders (Tests/Meds): ED MEDICATIONS Discontinued Medications Generic Name Dose Route Start Last Admin Trade Name Jonathan PRN Reason Stop Dose Admin Diphenhydramine HCl 25 mg 10/24/24 16:08 10/24/24 16:43 Diphenhydramine 50mg/Ml Vial IV 10/24/24 16:09 25 mg ONCE ONE Administration Droperidol 2.5 mg 10/24/24 16:08 10/24/24 16:43 Droperidol 5mg/2ml Vial IV 10/24/24 16:09 2.5 mg ONCE ONE Administration Lactated Ringer's 1,000 mls @ 999 mls/hr 10/24/24 16:08 10/24/24 16:42 Lactated Ringer's 1000 Ml Bag IV 10/24/24 17:08 999 mls/hr .Q1H1M ONE Administration Magnesium Sulfate 2 gm in 50 mls @ 50 mls/hr 10/24/24 16:58 10/24/24 17:41 Magnesium Sulfate 2gm/50ml Premix IV 10/24/24 17:57 50 mls/hr ONCE ONE Administration Ketorolac Tromethamine 15 mg 10/24/24 17:26 10/24/24 17:41 Ketorolac 30mg/Ml Vial IV 10/24/24 17:27 15 mg ONCE ONE Administration ORDERS Category Date Time Status CBC w/Auto Diff [Complete Blood Count Auto Diff] Stat Lab 10/24/24 16:22 Completed CMP [Comprehensive Metabolic Panel] Stat Lab 10/24/24 16:22 Completed Magnesium Stat Lab 10/24/24 16:22 Completed Rapid PCR Covid and Flu A/B Stat Lab 10/24/24 15:59 Completed Medical Decision Narrative: Anabel Alfonso is a 49y male with a history of gout who presents to the emergency department for complaints of a headache, nausea and diarrhea. Patient states that on Thursday, [place] and began to feel ill. He describes a headache that runs from his frontal region down his neck. He also reports chills as well as some nausea. He presented to the emergency department yesterday for these complaints and was noted to have low magnesium and a mild HANNY and received IV fluids and was discharged. He states that his symptoms have continued and now he is having diarrhea. He took Toradol and Tylenol today without significant relief of his symptoms. He denies any chest pain, vomiting, shortness of breath and is mainly concerned about the headache and nausea at this time. On arrival, patient was febrile with temperature of 101.3 ?F, normotensive, heart rate within normal limits, breathing comfortably on room air with oxygen saturation 98% SpO2. Physical exam, stated above, revealed a nontoxic-appearing male in no distress. He is alert, oriented and answering questions appropriately. He has full range of motion of his neck without meningismus. Cardiopulmonary exam is unremarkable. He overall appears hydrated. Differential diagnosis includes, but is not limited to: Viral illness, colitis, viral gastritis/enteritis, low concern for meningitis given patient's symptomatology most consistent with viral GI illness and no meningismus. If there is any component of meningitis, given patient is on day 3 of symptoms, it would be viral in nature and will resolve without intervention and no lumbar puncture is indicated at this time. CT imaging of the head was considered as well, however patient is alert, oriented with no focal neurological deficits and this would not change ED management and the risk of radiation exposure outweighs the potential benefits. Patient's workup from yesterday demonstrated creatinine of 1.4 (which appears to be around his baseline since 2023) with BUN of 24, low magnesium of 1.3 that was replaced. Initial troponin less than 0.01. No leukocytosis. Lipase normal at 193. Workup in the emergency department today included: CBC, CMP, magnesium level, COVID/flu swab, 1 L lactated ringer, IV droperidol and Benadryl, EKG. EKG interpreted by me personally with normal QTc interval. No ST elevations or depressions. Normal sinus rhythm. See interpretation above Laboratory studies interpreted by me personally: No leukocytosis, hemoglobin 12.7, hematocrit 36.3. Hemoglobin is 1 point less than yesterday, however likely secondary to hemoconcentration secondary to dehydration that improved after receiving IV fluids yesterday. Laboratory studies showed very mild hypokalemia of 3.4 (nonactionable) electrolytes otherwise within normal limits. Improvement in kidney function with creatinine of 1.2 and BUN of 18. Calcium mildly low at 7.7 but nonactionable. Magnesium continues to be low at 1.3, will give 2 g IV magnesium sulfate here in the emergency department. Negative COVID/flu swabs. On reassessment, patient states that his headache is improving, however he still has a mild headache. He has been over 6 hours since he took Toradol at home. Will give 50 mg IV Toradol while magnesium is running. On reassessment, patient had complete resolution of his headache. Given this, is felt the patient is appropriate discharge at this time. Instructed follow-up with his primary care physician. He is being discharged with prescription for Zofran. Return precautions were provided. All questions were answered. He and were in agreement with this plan. He was then discharged from the emergency department in stable condition. Critical Care Critical Care Time Critical Care Time: No
--- NOTE | 2024-10-24 16:26 | ECG_ITS ---
APPROVED REPORT Exam: Resting ECG HR:91 bpm ECG Measurements Heart Rate 91 AXES NE 145 P 42 QRSd 99 QRS -50 QT 362 T -3 QTc 410 Conclusion SINUS RHYTHM PATTERN CONSISTENT WITH PULMONARY DISEASE LEFT ANTERIOR FASCICULAR BLOCK [QRS AXIS <= -45, QR IN I, RS IN II] ABNORMAL ECG Electronically signed by : JUANIS MARCANO, 10/25/2024 08:36:06
[2024-10-24 16:32] LABS: Hematocrit 36.3 % (42.0-52.0); Hemoglobin 12.7 g/dL (14.1-18.0); Immature Granulocytes % 0.2 %; Mean Corpuscular HGB Conc 35.0 g/dL (31.8-35.4); Mean Corpuscular Hemoglobin 30.8 pg (27.0-31.2); Mean Corpuscular Volume 87.9 fl (80-94); Nucleated Red Blood Cells % 0 %; Platelet Count 150 K/mm3 (142-424); Red Blood Count 4.13 M/mm3 (4.60-6.20); Red Cell Distribution Width-SD 40.4 fL; White Blood Count 9.4 K/mm3 (4.8-10.8)
--- NOTE | 2024-10-24 16:38 | PC.NURSE ---
PT MOVED TO ROOM 10. CALL LIGHT WITHIN REACH AND WARM BLANKET PROVIDED
[2024-10-24] MEDS: LACTATED RINGERS 1000ML 1,000 ML 999 ML IV (16:42)
[2024-10-24 16:43] LABS: Alanine Aminotransferase 41 U/L (12-78); Albumin Level 3.9 g/dl (3.5-5.0); Albumin/Globulin Ratio 1.9 (1.1-1.8); Alkaline Phosphatase 38 U/L (38-126); Anion Gap 13.4 mEq/L (5-15); Aspartate Amino Transferase 35 U/L (17-59); Bilirubin,Total 1.3 mg/dl (0.2-1.3); Blood Urea Nitrogen 18 mg/dl (9-20); Calcium 7.7 mg/dl (8.4-10.2); Carbon Dioxide 28 mmol/L (22.0-30.0); Chloride 99 mmol/L (98-107); Creatinine Clearance Estimated 105 mL/min (50-200); Creatinine,Serum 1.20 mg/dl (0.66-1.25); Estimated Glomerular Filt Rate 64 ml/min (>60); GFR (African American) 78 ML/MIN (>60); Globulin 2.1 g/dL (1.3-3.2); Glucose 99 mg/dl (74-100); Magnesium 1.3 mg/dl (1.6-2.3); Potassium 3.4 mmoL/L (3.5-5.1); Sodium 137 mmol/L (136-145); Total Protein,Serum 6.0 g/dl (6.3-8.2)
[2024-10-24] MEDS: droPERidol 5MG/2ML VIAL 2.5 MG IV (16:43)
--- NOTE | 2024-10-24 17:23 | PC.NURSE ---
DR WARNER AT BEDSIDE TO REEVALUATE PT AND SPEAK WITH SHE REQUESTS PT HAVE HEAD CT
[2024-10-24] MEDS: KETOROLAC 30MG/ML VIAL 15 MG IV (17:41)
[2024-10-24] MEDS: MAGNESIUM SULFATE IN WATER 2 GM/50 ML PIGGYBACK IV (17:41)
== END 2024-10-24 18:32 | disposition home or self-care (01) ==
PROVIDERS: Emergency Provider Student in an Organized Health Care Education/Training Program; PCP Nurse Practitioner Family
DX: R51.9 Headache, unspecified (principal); R11.0 Nausea; R19.7 Diarrhea, unspecified
CPT/HCPCS: 80053; 83735; 85025; 87636; 93005; 96361; 96365; 96375; 99284; J1200; J1790; J1885; J3475; J7120